=== PATIENT | male | born 1940 | race Caucasian/White ===

== ENCOUNTER 2017-12-14 14:15 | Inpatient (IN) ==
[2017-12-14 14:27] VITALS: BMI 27.9
[2017-12-14] MEDS ORDERED: DUONEB 0.5 MG/3 MG ONE (14:35)
[2017-12-14] MEDS ORDERED: DUONEB 0.5 MG/3 MG NEB ONE (14:35)
[2017-12-14 14:56] LABS: BASOPHILS # (AUTO) 0.1 X10^3/uL (0.0-0.1); BASOPHILS % (AUTO) 0.4 % (0.2-1.0); EOSINOPHILS % (AUTO) 0.1 % (0.9-2.9); HEMATOCRIT 36.6 % (42.0-54.0); HEMOGLOBIN 11.9 g/dL (13.5-18.0); LYMPHOCYTES # (AUTO) 1.2 X10^3/uL (1.3-2.9); LYMPHOCYTES % (AUTO) 7.4 % (21.0-51.0); MEAN CORPUSCULAR HEMOGLOBIN 28.3 pg (27.0-34.0); MEAN CORPUSCULAR HGB CONC 32.6 g/dL (33.0-35.0); MEAN CORPUSCULAR VOLUME 86.8 fL (80.0-100.0); MEAN PLATELET VOLUME 8.2 fL (7.4-11.0); MONOCYTES # (AUTO) 1.5 x10^3/uL (0.3-0.8); MONOCYTES % (AUTO) 8.9 % (0.0-13.0); NEUTROPHILS # (AUTO) 13.7 x10^3/uL (2.2-4.8); NEUTROPHILS % (AUTO) 83.2 % (42.0-75.0); PLATELET COUNT 216 X10^3/uL (150.0-450.0); RED BLOOD COUNT 4.22 X10^6/uL (4.7-6.0); RED CELL DISTRIBUTION WIDTH 16.6 % (11.6-16.5); WHITE BLOOD COUNT 16.5 X10^3/uL (3.6-10.0)
--- NOTE | 2017-12-14 14:58 | RAD ---
HISTORY: Shortness of breath and technique Study: Portable upright PA chest Comparison: None Findings: The trachea is midline. The cardiac silhouette is normal status post sternotomy for coronary artery bypass grafting surgery.. There is an infiltrate in the right lower lobe. There is mild interstitial lung disease.. The bony thorax is unremarkable. IMPRESSION: 1. Right lower lobe pneumonitis Reported By:
--- NOTE | 2017-12-14 15:05 | DR.SOBA ---
HPI Time Seen Time Seen by Provider: 12/14/17 14:47 Primary Care Physician Primary Care Physician: Haven ARANGO HPI Comment HPI Comment: SEEN IN CLINIC AND REFER TO ED BP IS LOW AND HR HIGH OXYGEN SAT WAS ALSO LOW. PATIENT SAID HE IS WEAK. Complaints Chief Complaint Doctors Comments: COUGH, COLD CONGESTION TIMES ONE WEEK. Chief Complaint:: PATIENT STATED HE WAS SENT FROM [facility] FOR LOW BP, ELEVATED HR AND LOW OXYGEN LEVEL WITH FEVER. PATIENT ADMITS TO C/C/C FOR 1 WEEK. Source History Provided: Patient Mode of Arrival Mode of Arrival: Wheelchair Timing Onset of Chief Complaint: 12/09/17 Context Onset:: At Rest and With Light Exertion PE Risk Factors:: None History of:: COPD and CHF Currently on:: Inhaled Bronchodilators Prehospital Care:: Inhaled B2 Modifying Factors Worsens:: Exertion and Lying Flat Improves:: Rest and Sitting Up Associated Signs and Symptoms Associated Signs and Symptoms: Cough, Nasal Congestion, Sore Throat, Chest Pain and Leg Swelling If Chest Pain Quality: Aching and Pleuritic Location: Chest Wall If Cough Cough: Productive and Yellow PMH PMH Past Medical History: Yes Past Medical History: CHF, COPD, Gout and Hypertension Past Surgical History: Yes Surgical History: Angioplasty/Stents Family History History of Family Medical Conditions: Yes Family Medical History: GA and Hypertension Social History Does patient currently use any type of tobacco product: No Have you used tobacco products in the last 12 months: No Type of Tobacco Use: None Does any household member use tobacco: No Alcohol Use: None Do you use any recreational Drugs:: No Lives With: Family Lives Where: Home infectious screening In the last 2 months have you had wt loss of >10#?: NO Have you had fever, night sweats or hemotysis?: No Have you traveled outside the country in the last 6 months?: No Isolation: Standard ROS Review of Systems Constitutional: Weakness and Fatigue Eyes: No Symptoms Reported ENTM: Nose Discharge, Nose Congestion and Throat Pain; negative Ear Pain Respiratoy: Productive Cough, Short of Breath and Wheezing Cardiovascular: Chest Pain (CHEST WALL PAIN.) Gastrointestinal/Abdominal: No Symptoms Reported Genitourinary: No Symptoms Reported Neurological: Headache Musculoskeletal: Muscle Pain and Chest wall Integumentary: No Symptoms Reported Hematologic/Lymphatic: No Symptoms Reported Endocrine: No Symptoms Reported Psychiatric: No Symptoms Reported All Other Systems: Reviewed and Negative PE Vital Signs Vitals: Temperature 97.7 F Pulse Rate [Apical] 98 Pulse Rate 81 Respiratory Rate 22 Blood Pressure [Right Arm] 166/75 Blood Pressure [Left Arm] 131/77 Blood Pressure 217/95 O2 Sat by Pulse Oximetry 97 General Limitations: No Limitations General Appearance: Alert and In Distress (ON EXERSION.) Head Head Exam: Normal Inspection Eyes Eye exam: Normal Appearance ENT ENT Exam: Normal External Ear Exam; negative Normal Oropharynx (THROAT RED, TONSIL NOT ENLARGE.) and TM's Normal Bilaterally (TM BULGING BILATERAL.) Neck Neck Exam: Normal Inspection Chest Chest Inspection: Normal Inspection and Symmetric Chest Wall Rise Respiratory Respiratory Exam: Normal Lung Sounds Bilat Respiratory Exam: Bilateral: Wheezing and Bilateral: Rhonchi and Lower: Wheezing and Lower: Rhonchi Cardiovascular Cardiovascular Exam: Regular Rate and Normal Rhythm Abdominal Exam Abdominal Exam: Normal Inspection, Normal Bowel Sounds and Soft; negative Tenderness Extremities Extremities Exam: Normal Inspection Back Back Exam: Normal Inspection Neurologic Neurological Exam: Alert and Oriented X3; negative Motor Sensory Deficit Psychiatric Psychiatric Exam: Normal Affect and Normal Mood Skin Skin Exam: Warm, Dry, Intact and Normal Color MDM Differential Diagnosis Differential Diagnosis: Bronchitis, CHF, COPD, Mycardial Infarction, Pneumonia, Pneumothorax, Pulmonary embolism, Respiratory Insufficiency, Sinusitis and URI COURSE Education/Counseling Education/Counseling: Patient and Education Educated On: Diagnosis ROR Labs Reviewed Laboratory Results Reviewed?: Yes Result Diagrams: 12/21/17 04:45 12/21/17 04:45 Laboratory: 12/14/17 16:29 Sputum - Expectorated Sputum Sputum Culture - Preliminary 12/14/17 16:29 Sputum - Expectorated Sputum - Final 12/14/17 15:43 Blood Blood Culture - Final 12/14/17 15:18 Blood Blood Culture - Final WBC 8.8 X10^3/uL (3.6-10.0) 12/21/17 04:45 RBC 3.66 X10^6/uL (4.7-6.0) L 12/21/17 04:45 Hgb 10.5 g/dL (13.5-18.0) L 12/21/17 04:45 Hct 31.9 % (42.0-54.0) L 12/21/17 04:45 MCV 87.1 fL (80.0-100.0) 12/21/17 04:45 MCH 28.6 pg (27.0-34.0) 12/21/17 04:45 MCHC 32.8 g/dL (33.0-35.0) L 12/21/17 04:45 RDW 15.6 % (11.6-16.5) 12/21/17 04:45 Plt Count 230 X10^3/uL (150.0-450.0) 12/21/17 04:45 MPV 7.5 fL (7.4-11.0) 12/21/17 04:45 Neut % (Auto) 70.3 % (42.0-75.0) 12/21/17 04:45 Lymph % (Auto) 15.5 % (21.0-51.0) L 12/21/17 04:45 Emanuel % (Auto) 10.1 % (0.0-13.0) 12/21/17 04:45 Eos % (Auto) 3.1 % (0.9-2.9) H 12/21/17 04:45 Baso % (Auto) 1.0 % (0.2-1.0) 12/21/17 04:45 Neut # (Auto) 6.2 x10^3/uL (2.2-4.8) H 12/21/17 04:45 Lymph # (Auto) 1.4 X10^3/uL (1.3-2.9) 12/21/17 04:45 Emanuel # (Auto) 0.9 x10^3/uL (0.3-0.8) H 12/21/17 04:45 Eos # (Auto) 0.3 x10^3/uL (0.0-0.2) H 12/21/17 04:45 Baso # (Auto) 0.1 X10^3/uL (0.0-0.1) 12/21/17 04:45 Absolute Nucleated RBC 0.0 /100WBC 12/21/17 04:45 Sample Site Rrad 12/19/17 05:44 ABG pH 7.350 (7.35-7.45) 12/19/17 05:44 ABG pCO2 70.0 mmHg (35.0-45.0) H* 12/19/17 05:44 ABG pO2 96.0 mmHg (80.0-100.0) 12/19/17 05:44 ABG HCO3 38.6 mmol/L (22-26) H* 12/19/17 05:44 ABG O2 Saturation 97.0 % (90-100) 12/19/17 05:44 ABG Base Excess 10.4 mmol/L (-2.0-2.0) H 12/19/17 05:44 Kumar Test Pos 12/19/17 05:44 A-a Gradient 66.0 mmHg 12/19/17 05:44 FiO2 35 12/19/17 05:44 Blood Gas Comments Elizabeth abg well-mtf 12/19/17 05:44 Sodium 142 mmol/L (136-145) 12/21/17 04:45 Corrected Sodium TNP 12/21/17 04:45 Potassium 4.4 mmol/L (3.5-5.1) 12/21/17 04:45 Chloride 102 mmol/L (98-107) 12/21/17 04:45 Carbon Dioxide 39.2 mmol/L (21-32) H 12/21/17 04:45 BUN 17 mg/dL (7-18) 12/21/17 04:45 Creatinine 0.90 mg/dL (0.70-1.30) 12/21/17 04:45 Est GFR (MDRD) Af Amer > 60 (>60) 12/21/17 04:45 Est GFR (MDRD) Non-Af > 60 (>60) 12/21/17 04:45 Glucose 93 mg/dL (65-99) 12/21/17 04:45 Lactic Acid 1.2 mmol/L (0.4-2.0) 12/14/17 15:18 Calcium 8.4 mg/dL (8.5-10.1) L 12/21/17 04:45 Corrected Calcium 9.7 mg/dL (8.5-10.1) 12/21/17 04:45 Total Bilirubin 0.20 mg/dL (0.2-1.0) 12/21/17 04:45 AST 27 Units/L (15-37) 12/21/17 04:45 ALT 26 Units/L (12-78) 12/21/17 04:45 Alkaline Phosphatase 55 Units/L (46-116) 12/21/17 04:45 Creatine Kinase 64 Units/L (39-308) 12/19/17 17:19 CK-MB (CK-2) 2.5 ng/mL (0-4.0) 12/19/17 17:19 CK/CKMB % Calc 3.9 % (<4) 12/19/17 17:19 Troponin I < 0.02 ng/mL (0-1.5) 12/19/17 17:19 B-Natriuretic Peptide 326 pg/mL (0-79) H 12/14/17 15:18 Total Protein 6.9 g/dL (6.4-8.2) 12/21/17 04:45 Albumin 2.4 g/dL (3.4-5.0) L 12/21/17 04:45 Globulin 4.5 g/dL (2.5-4.5) 12/21/17 04:45 Albumin/Globulin Ratio 0.5 Ratio (1.1-2.1) L 12/21/17 04:45 Specimen Type Clean catch urine 12/14/17 18:36 Urine Color Dark yellow (YELLOW) 12/14/17 18:36 Urine Appearance Clear (CLEAR) 12/14/17 18:36 Urine pH 5.0 (5.0 - 8.0) 12/14/17 18:36 Ur Specific [place] 1.015 (1.000-1.030) 12/14/17 18:36 Urine Protein 2+ (NEGATIVE) 12/14/17 18:36 Urine Glucose (UA) Negative (NEGATIVE) 12/14/17 18:36 Urine Ketones Negative (NEGATIVE) 12/14/17 18:36 Urine Occult Blood Negative (NEGATIVE) 12/14/17 18:36 Urine Nitrite Negative (NEGATIVE) 12/14/17 18:36 Urine Bilirubin Negative (NEGATIVE) 12/14/17 18:36 Urine Urobilinogen Normal (NORMAL) 12/14/17 18:36 Ur Leukocyte Esterase Negative (NEGATIVE) 12/14/17 18:36 Urine RBC None seen /HPF (NONE SEEN) 12/14/17 18:36 Urine WBC 0-2 /HPF (NONE SEEN) 12/14/17 18:36 Ur Squamous Epith Cells Rare /HPF (NEGATIVE) 12/14/17 18:36 Ur Renal Epithelial Cell Rare /HPF (NEGATIVE) 12/14/17 18:36 Amorphous Sediment 1+ /HPF (NEGATIVE) 12/14/17 18:36 Urine Bacteria Trace /HPF (NEGATIVE) 12/14/17 18:36 Hyaline Casts Rare /LPF (NEGATIVE) 12/14/17 18:36 Ur Culture Indicated? No/not indicated 12/14/17 18:36 XRAY XRAY Interpreted by: Radiologist XRAY Findings: REPORT DISCUSS WITH PATIENT. EKG [place]: Normal Rhythm: NSR Block: None Hypertrophy: None ST: Normal Instructions Instructions: Chronic Obstructive Pulmonary Disease Exacerbation, Shnn-df-[id number] Fall Prevention in the Home, Wbqx-oz-[id number] Hypertension, Lvkw-go-Levd Acute Respiratory Failure, Adult Community-Acquired Pneumonia, Adult, [id number] Forms: Patient Portal
[2017-12-14 15:12] LABS: CALCIUM 8.5 mg/dL (8.5-10.1); CARBON DIOXIDE 32.1 mmol/L (21-32); COR CA(FOR HYPOALB) 9.3 mg/dL (8.5-10.1); CREATININE 1.55 mg/dL (0.70-1.30); TOTAL PROTEIN 7.9 g/dL (6.4-8.2)
[2017-12-14 15:35] LABS: CKMB % 2.2 % (<4); CREATINE KINASE 95 Units/L (39-308); CREATINE KINASE MB 2.1 ng/mL (0-4.0); TROPONIN I < 0.02 ng/mL (0-1.5)
[2017-12-14 15:41] LABS: B-TYPE NATRIURETIC PEPTIDE 326 pg/mL (0-79)
[2017-12-14 15:47] LABS: LACTIC ACID 1.2 mmol/L (0.4-2.0)
[2017-12-14] MEDS ORDERED: ROCEPHIN VIAL 1 GRAM IVP ONE (16:13)
[2017-12-14] MEDS ORDERED: ROCEPHIN VIAL 1 GRAM ONE (16:14)
[2017-12-14 16:35] LABS: ABG ALLEN TEST POS; ABG BASE EXCESS 4.5 mmol/L (-2.0-2.0); ABG HCO3 31.5 mmol/L (22-26); FRACTIONATED INSPIRED OXYGEN 28
[2017-12-14] MEDS ORDERED: LEVAQUIN PREMIX IV 750 MG 750 MG/150 ML BAG IV SCH (18:12)
[2017-12-14] MEDS ORDERED: DUONEB 0.5 MG/3 MG NEB SCH (18:12)
[2017-12-14] MEDS ORDERED: NS 1/2 1000 ML IV 1,000 ML IV ONE (18:42)
[2017-12-14] MEDS: ROBITUSSIN DM PO SCH ×2 (18:53→21:00)
[2017-12-14] MEDS: NS 1/2 1000 ML IV 1,000 ML IV SCH (18:53)
[2017-12-14 19:01] LABS: BILIRUBIN,URINE NEGATIVE (NEGATIVE); BLOOD/HEMOGLOBIN,URINE NEGATIVE (NEGATIVE); GLUCOSE, URINE NEGATIVE (NEGATIVE); KETONES,URINE NEGATIVE (NEGATIVE); LEUKOCYTE ESTERASE ,URINE NEGATIVE (NEGATIVE); NITRITES,URINE NEGATIVE (NEGATIVE); PROTEIN,URINE 2+ (NEGATIVE); UROBILINOGEN,URINE NORMAL (NORMAL)
[2017-12-14 19:19] LABS: AMORPHOUS SEDIMENT,UR 1+ /HPF (NEGATIVE); APPEARANCE,URINE CLEAR (CLEAR); BACTERIA,URINE TRACE /HPF (NEGATIVE); COLOR,URINE DARK YELLOW (YELLOW); HYALINE CASTS, URINE RARE /LPF (NEGATIVE); RBC,URINE NONE SEEN /HPF (NONE SEEN); RENAL EPITHELIAL CELLS,URINE RARE /HPF (NEGATIVE); SQUAMOUS EPITHELIAL CELL,UR RARE /HPF (NEGATIVE)
[2017-12-14] MEDS ORDERED: TYLENOL 325 MG TAB PO PRN (20:28)
[2017-12-14] MEDS: TUSSIONEX PENNKINETIC SUSP PO PRN ×2 (20:49→20:55)
[2017-12-14] MEDS: LOPRESSOR TAB 25 MG PO SCH (20:50)
[2017-12-14] MEDS: XOPENEX 1.25 MG/3 ML NEBULE NEB SCH (21:00)
[2017-12-15] MEDS: TobraDEX OPHTH OPHTH 1 DOSE LEFTEYE SCH ×3 (02:35→22:10)
[2017-12-15 04:32] LABS: ABG ALLEN TEST POS; FRACTIONATED INSPIRED OXYGEN 28
[2017-12-15 05:10] LABS: BASOPHILS % (AUTO) 0.3 % (0.2-1.0); HEMATOCRIT 35.6 % (42.0-54.0); HEMOGLOBIN 11.6 g/dL (13.5-18.0); LYMPHOCYTES # (AUTO) 1.6 X10^3/uL (1.3-2.9); LYMPHOCYTES % (AUTO) 10.7 % (21.0-51.0); MEAN CORPUSCULAR HEMOGLOBIN 28.6 pg (27.0-34.0); MEAN CORPUSCULAR HGB CONC 32.6 g/dL (33.0-35.0); MEAN CORPUSCULAR VOLUME 87.6 fL (80.0-100.0); MEAN PLATELET VOLUME 8.8 fL (7.4-11.0); MONOCYTES # (AUTO) 1.4 x10^3/uL (0.3-0.8); MONOCYTES % (AUTO) 9.3 % (0.0-13.0); NEUTROPHILS # (AUTO) 12.2 x10^3/uL (2.2-4.8); NEUTROPHILS % (AUTO) 79.7 % (42.0-75.0); PLATELET COUNT 197 X10^3/uL (150.0-450.0); RED BLOOD COUNT 4.07 X10^6/uL (4.7-6.0); RED CELL DISTRIBUTION WIDTH 16.2 % (11.6-16.5); WHITE BLOOD COUNT 15.3 X10^3/uL (3.6-10.0)
[2017-12-15 05:25] LABS: ALANINE AMINOTRANSFERASE 15 Units/L (12-78); ALBUMIN 2.8 g/dL (3.4-5.0); ALKALINE PHOSPHATASE 58 Units/L (46-116); ASPARTATE AMINO TRANSFERASE 16 Units/L (15-37); BLOOD UREA NITROGEN 32 mg/dL (7-18); CALCIUM 8.5 mg/dL (8.5-10.1); CARBON DIOXIDE 32.2 mmol/L (21-32); CHLORIDE 103 mmol/L (98-107); COR CA(FOR HYPOALB) 9.5 mg/dL (8.5-10.1); SODIUM 141 mmol/L (136-145); TOTAL PROTEIN 7.6 g/dL (6.4-8.2); eGFR NON BLACK RACES 39 (>60)
--- NOTE | 2017-12-15 07:39 | RAD ---
HISTORY: Shortness of breath, tachycardia Study: Chest AP portable Comparison: 12/14/2017 Findings: The patient is status post median sternotomy. The heart is within normal limits in size. The lungs ar e well inflated. Improving right basilar pneumonia is identified. The remainder of the lung hale ar e clear. The bony thorax is unremarkable. IMPRESSION: Improving right basilar pneumonia Reported By:
[2017-12-15] MEDS: XOPENEX 1.25 MG/3 ML NEBULE NEB SCH ×4 (08:36→20:39)
[2017-12-15] MEDS ORDERED: NS 50 ML IV 50 ML IV ONE (08:37)
[2017-12-15] MEDS: ROBITUSSIN DM PO SCH ×4 (08:47→20:33)
[2017-12-15] MEDS: LOPRESSOR TAB 25 MG PO SCH ×2 (08:47→20:33)
[2017-12-15] MEDS: ROCEPHIN VIAL 1 GRAM IVP SCH (09:00)
[2017-12-15] MEDS ORDERED: PATIENT'S HOME MEDICATION (Albuterol Sulfate 2 PUFF) IN PRN (10:53)
[2017-12-15] MEDS ORDERED: NS 1/2 1000 ML IV 1,000 ML IV ONE (10:54)
[2017-12-15] MEDS: NS 1/2 1000 ML IV 1,000 ML IV SCH (10:59)
[2017-12-15] MEDS ORDERED: FLUTICASONE UMECLIDIN VILANTER IN SCH (11:00)
[2017-12-15] MEDS ORDERED: MULTIVIT MIN FA LYCOPEN LUTEIN PO SCH (11:00)
[2017-12-15] MEDS ORDERED: TobraDEX OPHTH SUSP ONE (11:11)
[2017-12-15] MEDS: COZAAR PO SCH (11:32)
[2017-12-15] MEDS: ASPIRIN 81 MG CHEWTAB PO SCH (11:32)
[2017-12-15] MEDS: TAB-A-VITE PO SCH (11:32)
[2017-12-15] MEDS: ZYLOPRIM PO SCH (11:32)
[2017-12-15] MEDS: Atrovent NEB TX 0.02% NEB SCH ×3 (13:00→20:39)
--- NOTE | 2017-12-15 14:25 | DR.H&P ---
H&P - History & Physical for Day of: H&P Date: 12/14/17 - Chief Complaint Chief Complaint: C/C/C, FEVER, LOW BLOOD PRESSURE, ELEVATED HEART RATE, LOW OXYGEN SATURATIONS - History of Present Illness History of Present Illness: IS A 77 YEAR OLD PATIENT OF [facility] ARANGO WHO PRESENTED TO THE EMERGENCY ROOM WITH COMPLAINTS OF LOW BLOOD PRESSURE, ELEVATED HEART RATE, AND LOW OXYGEN SATURATIONS. PATIENT REPORTS THAT HE HAS HAD COUGH, COLD, CONGESTION, AND FEVER FOR THE PAST WEEK. ON ARRIVAL, VITALS WERE 98.7-103-18-92%RA-115/54. LABS WERE OBTAINED. ABNORMAL LAB VALUES INCLUDE THE FOLLOWING: WBC 16.5, RBC 4.22, HGB 11.9, HCT 36.6, CARBON DIOXIDE 32.1, BUN 30, CREATININE 1.55, GLUCOSE 135, ALBUMIM 3.0, GLOBULIN 4.9. ABG REVEALED: PH 7.350, PC02 57.0, P02 63.0, HC03 31.5, 02 SATURATION 91.0, BASE EXCESS 4.5. CARDIAC ENZYMES WITHIN NORMAL LIMITS. EKG REVEALED SINUS RHYTHM. BLOOD AND SPUTUM CULTURES ARE PENDING. A CHEST XRAY WAS OBTAINED AND REVEALED: Right lower lobe pneumonitis. STAFF REPORTS THAT PATIENTS OXYGEN SATURATIONS FELL INTO THE 60S WHILE AMBULATING ON NC 3L/MIN. OXYGEN SATURATIONS INCREASED TO THE LOW 90S AFTER DEEP BREATHING. HE WAS GIVEN LEVAQUIN 750MG IV X 1 DOSE AND ROCEPHIN 1G IV X 1 DOSE IN THE ER. HE WAS ADMITTED TO THE INTENSIVE CARE UNIT FOR FURTHER EVALUATION AND TREATMENT OF PNEUMONIA AND RESPIRATORY DISTRESS. WE PLAN TO FOLLOW UP WITH AM LABS AND CONTINUE TO MONITOR PATIENT. - Past Medical History Past Medical History: Hypertension, COPD, Gout, CHF - Past Surgical History Surgical History: Tonsillectomy - Family History Family Medical History: Diabetes Mellitus, [place], Hypertension - Social History Does patient currently use any type of tobacco product: No Have you used tobacco products in the last 12 months: No Type of Tobacco Use: None How many years tobacco product used: 55 Does any household member use tobacco: No Alcohol Use: None Drug Use: None - Medications Home Medications: No Known Drug Allergies Allergy (Verified 12/14/17 14:27) CONTINUE taking the following medications albuterol sulfate [Ventolin HFA] 2 puff INHALATION Q4H PRN 12/14/17 [History] allopurinol 1 tab PO DAILY 12/14/17 [History] aspirin [Judy Chewable Aspirin] 1 tab PO DAILY 12/14/17 [History] lvicaykqllk-ipnnbcjyr-ltljyyzs [Trelegy Ellipta] 1 puff INHALATION DAILY [History] furosemide 1 tab PO DAILY 12/14/17 [History] levalbuterol HCl 1 inh INHALATION Q4H PRN 12/14/17 [History] losartan 50 mg DAILY 12/14/17 [History] metoprolol tartrate 1 tab PO BID 12/14/17 [History] hugagode-ryx-YS-lycopen-lutein [Centrum Silver Men] 1 tab PO DAILY 12/14/17 [ History] - Review of Systems Constitutional: Fever, Weakness Eyes: No Symptoms Reported ENT: No Symptoms Reported Respiratory: See HPI, Cough, Shortness of Breath, SOB with Excertion, Wheezing Cardiovascular: No Symptoms Reported, Edema (bilateral lower extremities ) Gastrointestinal: No Symptoms Reported Genitourinary: No Symptoms Reported Musculoskeletal: No Symptoms Reported Neurological: Weakness - Physical Exam Vital Signs: Temperature 97.5 F Pulse Rate [Apical] 94 Pulse Rate 90 Respiratory Rate 24 Blood Pressure [Right Arm] 142/65 Blood Pressure [Left Arm] 123/69 Blood Pressure 115/54 O2 Sat by Pulse Oximetry 100 Oriented: Normal Eyes: Normal Ear: Normal Nose: Normal Respiratory: Wheezes Throughout Cardiovascular: Tachycardia, Edema (bilateral lower extremities ). negative: S3 , S4, Murmur : Normal Auscultation: Bowel Sounds: Normal Palpation: Normal Skin: Normal Musculoskeletal: Normal Psychiatric: Normal Mood Description: Calm Affect: Normal Speech Pattern: Clear - Assessment/Plan (1) Pneumonia Qualifiers: Pneumonia type: due to unspecified organism Laterality: right Lung location: lower lobe of lung Qualified Code(s): J18.1 - Lobar pneumonia, unspecified organism Status: Acute Plan: pneumonia protocol, iv cipro, respiratory treatments, supplemental oxygen , continue to monitor (2) Respiratory distress Status: Acute Plan: respiratory treatments, supplemental oxygen, continue to monitor - Allergies Allergies/Adverse Reactions: Allergies Allergy/AdvReac Type Severity Reaction Status Date / Time No Known Drug Allergies Allergy Verified 12/14/17 14:27
[2017-12-15] MEDS: PULMICORT NEB TX 0.5 MG NEB SCH ×2 (16:20→20:39)
[2017-12-16] MEDS: NS 1/2 1000 ML IV 1,000 ML IV SCH ×3 (01:25→16:02)
[2017-12-16 05:59] LABS: BASOPHILS % (AUTO) 0.4 % (0.2-1.0); EOSINOPHILS # (AUTO) 0.1 x10^3/uL (0.0-0.2); EOSINOPHILS % (AUTO) 0.8 % (0.9-2.9); HEMATOCRIT 34.2 % (42.0-54.0); HEMOGLOBIN 11.2 g/dL (13.5-18.0); LYMPHOCYTES # (AUTO) 1.1 X10^3/uL (1.3-2.9); LYMPHOCYTES % (AUTO) 9.6 % (21.0-51.0); MEAN CORPUSCULAR HEMOGLOBIN 28.6 pg (27.0-34.0); MEAN CORPUSCULAR HGB CONC 32.8 g/dL (33.0-35.0); MEAN CORPUSCULAR VOLUME 87.1 fL (80.0-100.0); MEAN PLATELET VOLUME 8.6 fL (7.4-11.0); MONOCYTES % (AUTO) 8.9 % (0.0-13.0); NEUTROPHILS # (AUTO) 8.9 x10^3/uL (2.2-4.8); NEUTROPHILS % (AUTO) 80.3 % (42.0-75.0); PLATELET COUNT 217 X10^3/uL (150.0-450.0); RED BLOOD COUNT 3.92 X10^6/uL (4.7-6.0); RED CELL DISTRIBUTION WIDTH 16.3 % (11.6-16.5); WHITE BLOOD COUNT 11.1 X10^3/uL (3.6-10.0)
[2017-12-16 06:11] LABS: ALANINE AMINOTRANSFERASE 14 Units/L (12-78); ALBUMIN 2.8 g/dL (3.4-5.0); ALKALINE PHOSPHATASE 58 Units/L (46-116); ASPARTATE AMINO TRANSFERASE 18 Units/L (15-37); BLOOD UREA NITROGEN 24 mg/dL (7-18); CALCIUM 8.3 mg/dL (8.5-10.1); CARBON DIOXIDE 31.1 mmol/L (21-32); CHLORIDE 103 mmol/L (98-107); COR CA(FOR HYPOALB) 9.3 mg/dL (8.5-10.1); CREATININE 1.18 mg/dL (0.70-1.30); SODIUM 140 mmol/L (136-145); TOTAL PROTEIN 7.8 g/dL (6.4-8.2); eGFR NON BLACK RACES > 60 (>60)
--- NOTE | 2017-12-16 06:47 | RAD ---
Examination: AP chest History: SOB Comparison 12/15/2017 Findings: Continued normal heart size. The left lung is clear. There is suggestion of a small area o f residual infiltrate at the right base as previously described. No new abnormality is noted. Impression: No change since 1 day earlier. Reported By:
[2017-12-16] MEDS: LEVAQUIN PREMIX IV 750 MG 750 MG/150 ML BAG IV SCH (09:00)
[2017-12-16] MEDS: LOPRESSOR TAB 25 MG PO SCH ×2 (09:01→20:38)
[2017-12-16] MEDS: ROBITUSSIN DM PO SCH ×4 (09:01→20:38)
[2017-12-16] MEDS: COZAAR PO SCH (09:01)
[2017-12-16] MEDS: ZYLOPRIM PO SCH (09:01)
[2017-12-16] MEDS: TAB-A-VITE PO SCH (09:01)
[2017-12-16] MEDS: ROCEPHIN VIAL 1 GRAM IVP SCH (09:01)
[2017-12-16] MEDS: ASPIRIN 81 MG CHEWTAB PO SCH (09:01)
[2017-12-16] MEDS: TobraDEX OPHTH OPHTH 1 DOSE LEFTEYE SCH ×4 (09:02→20:39)
[2017-12-16] MEDS: XOPENEX 1.25 MG/3 ML NEBULE NEB SCH ×4 (09:08→20:14)
[2017-12-16] MEDS: Atrovent NEB TX 0.02% NEB SCH ×4 (09:08→20:14)
[2017-12-16] MEDS: PULMICORT NEB TX 0.5 MG NEB SCH ×2 (09:08→20:14)
[2017-12-16] MEDS ORDERED: NS 1/2 1000 ML IV 1,000 ML IV ONE (15:01)
[2017-12-17] MEDS ORDERED: NS 1/2 1000 ML IV 1,000 ML IV ONE ×2 (04:34→17:17)
[2017-12-17] MEDS: NS 1/2 1000 ML IV 1,000 ML IV SCH ×2 (04:36→17:40)
[2017-12-17 06:27] LABS: BASOPHILS # (AUTO) 0.1 X10^3/uL (0.0-0.1); BASOPHILS % (AUTO) 0.7 % (0.2-1.0); EOSINOPHILS # (AUTO) 0.2 x10^3/uL (0.0-0.2); EOSINOPHILS % (AUTO) 1.8 % (0.9-2.9); HEMATOCRIT 36.4 % (42.0-54.0); HEMOGLOBIN 11.7 g/dL (13.5-18.0); LYMPHOCYTES # (AUTO) 1.5 X10^3/uL (1.3-2.9); LYMPHOCYTES % (AUTO) 12.1 % (21.0-51.0); MEAN CORPUSCULAR HEMOGLOBIN 28.2 pg (27.0-34.0); MEAN CORPUSCULAR HGB CONC 32.1 g/dL (33.0-35.0); MEAN CORPUSCULAR VOLUME 87.9 fL (80.0-100.0); MEAN PLATELET VOLUME 8.7 fL (7.4-11.0); MONOCYTES # (AUTO) 1.1 x10^3/uL (0.3-0.8); MONOCYTES % (AUTO) 9.1 % (0.0-13.0); NEUTROPHILS # (AUTO) 9.5 x10^3/uL (2.2-4.8); NEUTROPHILS % (AUTO) 76.3 % (42.0-75.0); PLATELET COUNT 252 X10^3/uL (150.0-450.0); RED BLOOD COUNT 4.15 X10^6/uL (4.7-6.0); RED CELL DISTRIBUTION WIDTH 16.2 % (11.6-16.5); WHITE BLOOD COUNT 12.4 X10^3/uL (3.6-10.0)
[2017-12-17 06:30] LABS: ALANINE AMINOTRANSFERASE 16 Units/L (12-78); ALBUMIN 2.8 g/dL (3.4-5.0); ALKALINE PHOSPHATASE 61 Units/L (46-116); ASPARTATE AMINO TRANSFERASE 18 Units/L (15-37); BLOOD UREA NITROGEN 18 mg/dL (7-18); CALCIUM 8.7 mg/dL (8.5-10.1); CARBON DIOXIDE 30.6 mmol/L (21-32); CHLORIDE 102 mmol/L (98-107); COR CA(FOR HYPOALB) 9.7 mg/dL (8.5-10.1); COR NA(FOR HYPERGLY) 139 mmol/L (136-145); CREATININE 1.11 mg/dL (0.70-1.30); SODIUM 139 mmol/L (136-145); TOTAL PROTEIN 8.1 g/dL (6.4-8.2); eGFR NON BLACK RACES > 60 (>60)
--- NOTE | 2017-12-17 06:54 | RAD ---
Examination: AP chest History: Cough SOB Comparison 12/16/2017 Findings: Continued normal heart size with clear left chest. Apparent increase in infiltrate in the right base. The right upper lung is clear. No pleural fluid or pneumothorax is seen. Impression: Suspect increase/recurrent right lower lobe infiltrate since 12/16/2017. Reported By:
[2017-12-17] MEDS: ROBITUSSIN DM PO SCH ×4 (08:56→21:32)
[2017-12-17] MEDS: ROCEPHIN VIAL 1 GRAM IVP SCH (08:57)
[2017-12-17] MEDS: ZYLOPRIM PO SCH (08:57)
[2017-12-17] MEDS: TAB-A-VITE PO SCH (08:57)
[2017-12-17] MEDS: ASPIRIN 81 MG CHEWTAB PO SCH (08:57)
[2017-12-17] MEDS: COZAAR PO SCH (08:58)
[2017-12-17] MEDS: LOPRESSOR TAB 25 MG PO SCH ×2 (08:58→21:32)
[2017-12-17] MEDS: TobraDEX OPHTH OPHTH 1 DOSE LEFTEYE SCH (08:58)
[2017-12-17] MEDS: XOPENEX 1.25 MG/3 ML NEBULE NEB SCH ×4 (09:12→21:29)
[2017-12-17] MEDS: PULMICORT NEB TX 0.5 MG NEB SCH ×2 (09:12→21:29)
[2017-12-17] MEDS: Atrovent NEB TX 0.02% NEB SCH ×4 (09:12→21:29)
[2017-12-17] MEDS: MILK OF MAGNESIA PO SCH (21:32)
[2017-12-17] MEDS: COLACE CAP 100 MG PO SCH (21:34)
[2017-12-18 05:35] LABS: BASOPHILS # (AUTO) 0.1 X10^3/uL (0.0-0.1); BASOPHILS % (AUTO) 0.5 % (0.2-1.0); EOSINOPHILS # (AUTO) 0.2 x10^3/uL (0.0-0.2); EOSINOPHILS % (AUTO) 1.4 % (0.9-2.9); HEMATOCRIT 35.8 % (42.0-54.0); HEMOGLOBIN 11.6 g/dL (13.5-18.0); LYMPHOCYTES # (AUTO) 0.8 X10^3/uL (1.3-2.9); LYMPHOCYTES % (AUTO) 7.4 % (21.0-51.0); MEAN CORPUSCULAR HEMOGLOBIN 28.3 pg (27.0-34.0); MEAN CORPUSCULAR HGB CONC 32.4 g/dL (33.0-35.0); MEAN CORPUSCULAR VOLUME 87.4 fL (80.0-100.0); MEAN PLATELET VOLUME 8.4 fL (7.4-11.0); MONOCYTES % (AUTO) 8.7 % (0.0-13.0); PLATELET COUNT 220 X10^3/uL (150.0-450.0); RED BLOOD COUNT 4.09 X10^6/uL (4.7-6.0); RED CELL DISTRIBUTION WIDTH 16.2 % (11.6-16.5); WHITE BLOOD COUNT 10.9 X10^3/uL (3.6-10.0)
[2017-12-18 05:46] LABS: ALANINE AMINOTRANSFERASE 26 Units/L (12-78); ALBUMIN 2.8 g/dL (3.4-5.0); ALKALINE PHOSPHATASE 69 Units/L (46-116); ASPARTATE AMINO TRANSFERASE 34 Units/L (15-37); BLOOD UREA NITROGEN 19 mg/dL (7-18); CALCIUM 8.7 mg/dL (8.5-10.1); CARBON DIOXIDE 32.8 mmol/L (21-32); CHLORIDE 103 mmol/L (98-107); COR CA(FOR HYPOALB) 9.7 mg/dL (8.5-10.1); COR NA(FOR HYPERGLY) 139 mmol/L (136-145); CREATININE 0.99 mg/dL (0.70-1.30); SODIUM 139 mmol/L (136-145); TOTAL PROTEIN 8.1 g/dL (6.4-8.2); eGFR NON BLACK RACES > 60 (>60)
[2017-12-18] MEDS ORDERED: BUTT CREAM (COMPOUND) ONE (07:21)
--- NOTE | 2017-12-18 07:21 | RAD ---
HISTORY: Follow-up pneumonia Study: Chest AP portable Comparison: 12/17/2017, 12/16/2017 Findings: The patient is status post median sternotomy. The heart is within normal limits in size. The lungs ar e mildly hyperinflated. Interstitial lung changes are present bilaterally. No significant change is n oted in the right lower lobe alveolar pneumonia being followed. A small right pleural effusion is lik msaon present. No left pleural effusion is identified. The bony thorax is unremarkable. IMPRESSION: No change right lower lobe alveolar pneumonia Small right pleural effusion Reported By:
[2017-12-18] MEDS: MILK OF MAGNESIA PO SCH ×2 (08:20→23:48)
[2017-12-18] MEDS: LEVAQUIN PREMIX IV 750 MG 750 MG/150 ML BAG IV SCH (08:20)
[2017-12-18] MEDS: ASPIRIN 81 MG CHEWTAB PO SCH (08:21)
[2017-12-18] MEDS: COZAAR PO SCH ×2 (08:21→10:12)
[2017-12-18] MEDS: ZYLOPRIM PO SCH (08:21)
[2017-12-18] MEDS: ROBITUSSIN DM PO SCH ×3 (08:21→21:30)
[2017-12-18] MEDS: TAB-A-VITE PO SCH (08:21)
[2017-12-18] MEDS: LOPRESSOR TAB 25 MG PO SCH ×2 (08:22→21:30)
[2017-12-18] MEDS: TobraDEX OPHTH OPHTH 1 DOSE LEFTEYE SCH ×2 (08:24→21:30)
[2017-12-18] MEDS: ROCEPHIN VIAL 1 GRAM IVP SCH (08:24)
[2017-12-18 08:44] LABS: ABG ALLEN TEST POS; ABG BASE EXCESS 6.6 mmol/L (-2.0-2.0); ABG HCO3 37.6 mmol/L (22-26); FRACTIONATED INSPIRED OXYGEN 32
[2017-12-18] MEDS: PULMICORT NEB TX 0.5 MG NEB SCH ×2 (08:59→21:41)
[2017-12-18] MEDS: XOPENEX 1.25 MG/3 ML NEBULE NEB SCH ×4 (08:59→21:41)
[2017-12-18] MEDS: Atrovent NEB TX 0.02% NEB SCH ×4 (09:00→21:40)
[2017-12-18] MEDS ORDERED: LOPRESSOR TAB 25 MG PO SCH (09:00)
[2017-12-18] MEDS ORDERED: NS 1/2 1000 ML IV 1,000 ML IV ONE (10:09)
[2017-12-18 11:56] LABS: ABG BASE EXCESS 9.4 mmol/L (-2.0-2.0)
[2017-12-18 11:57] LABS: ABG ALLEN TEST POS; FRACTIONATED INSPIRED OXYGEN 35
--- NOTE | 2017-12-18 18:17 | CT ---
Indication: Acute mental status changes Exam: CT head without contrast. Technique: Routine transaxial images were obtained through the brain without contrast. Comparison: None. Findings: The ventricles are mildly enlarged with diffuse mild prominence of the cortical sulci. Ther e is mild periventricular low density bilaterally. There is mild focal low-density and atrophy along the right frontal lobe extending laterally . There is a craniotomy flap along the right frontoparieta l region extending inferiorly along the temporal region which is in good position. No intracranial he morrhage or edema is seen. There is no extra-axial fluid collection or mass . There is minimal cortic al atrophy along the right parietal region . The midline structures are unremarkable. The bones are i ntact. 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 Mild atrophy mild chronic microischemic changes throughout the deep white matter. Reported By:
[2017-12-18] MEDS: NS 1/2 1000 ML IV 1,000 ML IV SCH (20:15)
--- NOTE | 2017-12-18 20:35 | PCM.PROG ---
Progress Note - Progress Note for Day of Date of Exam: 12/18/17 - Subjective Subjective: WAS ADMITTED FOR RIGHT LOWER LOBE PNEUMONIA AND RESPIRATORY DISTRESS. HE ALSO HAS A HISTORY OF COPD AND CHF. HE WAS TRANSFERRED FROM THE INTENSIVE CARE UNIT TO THE FLOOR YESTERDAY. HE CONTINUES WITH COUGH AND SHORTNESS OF BREATH TODAY. HE IS ALSO NOTED WITH ALTERED MENTAL STATUS AND WEAKNESS. STAFF REPORTS THAT PATIENTS OXYGEN SATURATIONS HAVE BEEN FALLING INTO THE 70S ON AMBULATION. HE HAS BEEN HYPERTENSIVE DESPITE CHANGES MADE TO MEDICATIONS. HIS VITALS THIS MORNING ARE 98.6-121-22-95%-220/115. ABNORMAL LABS INCLUDE THE FOLLOWING: WBC 10.9, RBC 4.09, HGB 11.6, HCT 35.8, CARBON DIOXIDE 32.8, BUN 19, GLUCOSE 118, ALBUMIN 2.8. ABG REVEALED: PH 7.210, PC02 94.0, P02 71.0, HC03 37.6, 02 SATURATION 90.0, BASE EXCESS 6.6. CHEST XRAY REVEALED: No change right lower lobe alveolar pneumonia. Small right pleural effusion. HE CONTINUES TO RECEIVE IV ANTIBIOTICS, RESPIRATORY TREATMENTS, AND SUPPLEMENTAL OXYGEN. TODAY, WE WILL PLACE HIM ON THE BIPAP AND OBTAIN A BRAIN CT DUE TO THE ALTERED MENTAL STATUS AND AN ECHO. WE WILL INCREASE THE LOSARTAN TO 100MG PO DAILY. OTHERWISE, WE WILL FOLLOW UP WITH AM LABS, CHEST XRAY, AND ABG AND CONTINUE TO MONITOR PATIENT. - Past Medical Family Social History Past Med/Fam/Surg Hx: No changes since H&P Allergies: Allergies No Known Drug Allergies Allergy (Verified 12/14/17 14:27) - Review of Systems ROS: No change since H&P - Vital Signs and I&O's Vital Signs: Temperature 97.9 F Pulse Rate [Apical] 91 Pulse Rate 92 Respiratory Rate 20 Blood Pressure [Right Arm] 220/115 Blood Pressure [Left Arm] 150/68 Blood Pressure 217/95 O2 Sat by Pulse Oximetry 93 Intake and Output: Intake & Output 12/16/17 12/17/17 12/18/17 12/19/17 11:59 11:59 11:59 11:59 Intake Total 2990 / 2990 2547 / 2547 2564 / 2564 360 / 360 Output Total 1800 / 1800 2100 / 2100 1952 / 1952 425 / 425 Balance 1190 / 1190 447 / 447 612 / 612 -65 / -65 - Physical Exam Oriented: Person Eyes: Normal Ear: Normal Nose: Normal Throat: Normal Respiratory: Generalized, Diminished, Wheezes Cardiovascular: Tachycardia, Edema (bilateral lower extremities ). negative: S3, S4, Murmur : Normal Auscultation: Bowel Sounds: Normal Palpation: Normal Tenderness: Normal Skin: Normal Musculoskeletal: Normal Psychiatric: Other (CONFUSION ) Mood Description: Calm Affect: Normal Speech Pattern: Clear - Laboratory and Diagnostics Result Diagrams: 12/18/17 04:59 12/18/17 04:59 Labs: 12/14/17 16:29 Sputum - Expectorated Sputum Sputum Culture - Preliminary 12/14/17 16:29 Sputum - Expectorated Sputum - Final 12/14/17 15:18 Blood Blood Culture - Preliminary 12/14/17 15:43 Blood Blood Culture - Preliminary Laboratory WBC 10.9 X10^3/uL (3.6-10.0) H 12/18/17 04:59 RBC 4.09 X10^6/uL (4.7-6.0) L 12/18/17 04:59 Hgb 11.6 g/dL (13.5-18.0) L 12/18/17 04:59 Hct 35.8 % (42.0-54.0) L 12/18/17 04:59 MCV 87.4 fL (80.0-100.0) 12/18/17 04:59 MCH 28.3 pg (27.0-34.0) 12/18/17 04:59 MCHC 32.4 g/dL (33.0-35.0) L 12/18/17 04:59 RDW 16.2 % (11.6-16.5) 12/18/17 04:59 Plt Count 220 X10^3/uL (150.0-450.0) 12/18/17 04:59 MPV 8.4 fL (7.4-11.0) 12/18/17 04:59 Neut % (Auto) 82.0 % (42.0-75.0) H 12/18/17 04:59 Lymph % (Auto) 7.4 % (21.0-51.0) L 12/18/17 04:59 [place] % (Auto) 8.7 % (0.0-13.0) 12/18/17 04:59 Eos % (Auto) 1.4 % (0.9-2.9) 12/18/17 04:59 Baso % (Auto) 0.5 % (0.2-1.0) 12/18/17 04:59 Neut # (Auto) 9.0 x10^3/uL (2.2-4.8) H 12/18/17 04:59 Lymph # (Auto) 0.8 X10^3/uL (1.3-2.9) L 12/18/17 04:59 [place] # (Auto) 1.0 x10^3/uL (0.3-0.8) H 12/18/17 04:59 Eos # (Auto) 0.2 x10^3/uL (0.0-0.2) 12/18/17 04:59 Baso # (Auto) 0.1 X10^3/uL (0.0-0.1) 12/18/17 04:59 Absolute Nucleated RBC 0.0 /100WBC 12/18/17 04:59 Sample Site Left radial 12/18/17 11:42 ABG pH 7.330 (7.35-7.45) L 12/18/17 11:42 ABG pCO2 72.0 mmHg (35.0-45.0) H* 12/18/17 11:42 ABG pO2 91.0 mmHg (80.0-100.0) 12/18/17 11:42 ABG HCO3 38.0 mmol/L (22-26) H* 12/18/17 11:42 ABG O2 Saturation 96.0 % (90-100) 12/18/17 11:42 ABG Base Excess 9.4 mmol/L (-2.0-2.0) H 12/18/17 11:42 Kumar Test Pos 12/18/17 11:42 A-a Gradient 69.0 mmHg 12/18/17 11:42 FiO2 35 12/18/17 11:42 Blood Gas Comments Elizabeth well mm 12/18/17 11:42 Sodium 139 mmol/L (136-145) 12/18/17 04:59 Corrected Sodium 139 mmol/L (136-145) 12/18/17 04:59 Potassium 4.9 mmol/L (3.5-5.1) 12/18/17 04:59 Chloride 103 mmol/L (98-107) 12/18/17 04:59 Carbon Dioxide 32.8 mmol/L (21-32) H 12/18/17 04:59 BUN 19 mg/dL (7-18) H 12/18/17 04:59 Creatinine 0.99 mg/dL (0.70-1.30) 12/18/17 04:59 Est GFR (MDRD) Af Amer > 60 (>60) 12/18/17 04:59 Est GFR (MDRD) Non-Af > 60 (>60) 12/18/17 04:59 Glucose 118 mg/dL (65-99) H 12/18/17 04:59 Lactic Acid 1.2 mmol/L (0.4-2.0) 12/14/17 15:18 Calcium 8.7 mg/dL (8.5-10.1) 12/18/17 04:59 Corrected Calcium 9.7 mg/dL (8.5-10.1) 12/18/17 04:59 Total Bilirubin 0.20 mg/dL (0.2-1.0) 12/18/17 04:59 AST 34 Units/L (15-37) 12/18/17 04:59 ALT 26 Units/L (12-78) 12/18/17 04:59 Alkaline Phosphatase 69 Units/L (46-116) 12/18/17 04:59 Creatine Kinase 95 Units/L (39-308) 12/14/17 15:18 CK-MB (CK-2) 2.1 ng/mL (0-4.0) 12/14/17 15:18 CK/CKMB % Calc 2.2 % (<4) 12/14/17 15:18 Troponin I < 0.02 ng/mL (0-1.5) 12/14/17 15:18 B-Natriuretic Peptide 326 pg/mL (0-79) H 12/14/17 15:18 Total Protein 8.1 g/dL (6.4-8.2) 12/18/17 04:59 Albumin 2.8 g/dL (3.4-5.0) L 12/18/17 04:59 Globulin 5.3 g/dL (2.5-4.5) H 12/18/17 04:59 Albumin/Globulin Ratio 0.5 Ratio (1.1-2.1) L 12/18/17 04:59 Specimen Type Clean catch urine 12/14/17 18:36 Urine Color Dark yellow (YELLOW) 12/14/17 18:36 Urine Appearance Clear (CLEAR) 12/14/17 18:36 Urine pH 5.0 (5.0 - 8.0) 12/14/17 18:36 Ur Specific [place] 1.015 (1.000-1.030) 12/14/17 18:36 Urine Protein 2+ (NEGATIVE) 12/14/17 18:36 Urine Glucose (UA) Negative (NEGATIVE) 12/14/17 18:36 Urine Ketones Negative (NEGATIVE) 12/14/17 18:36 Urine Occult Blood Negative (NEGATIVE) 12/14/17 18:36 Urine Nitrite Negative (NEGATIVE) 12/14/17 18:36 Urine Bilirubin Negative (NEGATIVE) 12/14/17 18:36 Urine Urobilinogen Normal (NORMAL) 12/14/17 18:36 Ur Leukocyte Esterase Negative (NEGATIVE) 12/14/17 18:36 Urine RBC None seen /HPF (NONE SEEN) 12/14/17 18:36 Urine WBC 0-2 /HPF (NONE SEEN) 12/14/17 18:36 Ur Squamous Epith Cells Rare /HPF (NEGATIVE) 12/14/17 18:36 Ur Renal Epithelial Cell Rare /HPF (NEGATIVE) 12/14/17 18:36 Amorphous Sediment 1+ /HPF (NEGATIVE) 12/14/17 18:36 Urine Bacteria Trace /HPF (NEGATIVE) 12/14/17 18:36 Hyaline Casts Rare /LPF (NEGATIVE) 12/14/17 18:36 Ur Culture Indicated? No/not indicated 12/14/17 18:36 - Plan (1) Pneumonia Status: Acute Qualifiers: Pneumonia type: due to unspecified organism Laterality: right Lung location: lower lobe of lung Qualified Code(s): J18.1 - Lobar pneumonia, unspecified organism Plan: pneumonia protocol, iv cipro, respiratory treatments, supplemental oxygen, continue to monitor (2) Respiratory distress Status: Acute Plan: respiratory treatments, supplemental oxygen, continue to monitor (3) Respiratory failure with hypercapnia Status: Acute Qualifiers: Chronicity: acute on chronic Qualified Code(s): J96.22 - Acute and chronic respiratory failure with hypercapnia Plan: BIPAP
[2017-12-18] MEDS: COLACE CAP 100 MG PO SCH (21:30)
[2017-12-19] MEDS: TUSSIONEX PENNKINETIC SUSP PO PRN (00:30)
[2017-12-19] MEDS ORDERED: NS 1/2 1000 ML IV 1,000 ML IV ONE ×2 (01:23→14:43)
[2017-12-19] MEDS: NS 1/2 1000 ML IV 1,000 ML IV SCH ×2 (01:29→14:44)
[2017-12-19 05:14] LABS: BASOPHILS # (AUTO) 0.1 X10^3/uL (0.0-0.1); BASOPHILS % (AUTO) 0.6 % (0.2-1.0); EOSINOPHILS # (AUTO) 0.1 x10^3/uL (0.0-0.2); EOSINOPHILS % (AUTO) 1.2 % (0.9-2.9); HEMATOCRIT 33.9 % (42.0-54.0); HEMOGLOBIN 10.8 g/dL (13.5-18.0); LYMPHOCYTES # (AUTO) 1.1 X10^3/uL (1.3-2.9); LYMPHOCYTES % (AUTO) 10.8 % (21.0-51.0); MEAN CORPUSCULAR HEMOGLOBIN 27.9 pg (27.0-34.0); MEAN CORPUSCULAR HGB CONC 31.9 g/dL (33.0-35.0); MEAN CORPUSCULAR VOLUME 87.7 fL (80.0-100.0); MONOCYTES % (AUTO) 9.9 % (0.0-13.0); NEUTROPHILS % (AUTO) 77.5 % (42.0-75.0); PLATELET COUNT 207 X10^3/uL (150.0-450.0); RED BLOOD COUNT 3.87 X10^6/uL (4.7-6.0); RED CELL DISTRIBUTION WIDTH 16.1 % (11.6-16.5); WHITE BLOOD COUNT 10.3 X10^3/uL (3.6-10.0)
[2017-12-19 05:33] LABS: ALANINE AMINOTRANSFERASE 24 Units/L (12-78); ALBUMIN 2.5 g/dL (3.4-5.0); ALKALINE PHOSPHATASE 57 Units/L (46-116); ASPARTATE AMINO TRANSFERASE 27 Units/L (15-37); BLOOD UREA NITROGEN 21 mg/dL (7-18); CALCIUM 8.4 mg/dL (8.5-10.1); CARBON DIOXIDE 35.5 mmol/L (21-32); CHLORIDE 102 mmol/L (98-107); COR CA(FOR HYPOALB) 9.6 mg/dL (8.5-10.1); SODIUM 140 mmol/L (136-145); TOTAL PROTEIN 7.3 g/dL (6.4-8.2); eGFR NON BLACK RACES > 60 (>60)
[2017-12-19 05:54] LABS: ABG BASE EXCESS 10.4 mmol/L (-2.0-2.0)
[2017-12-19 05:55] LABS: ABG ALLEN TEST POS; ABG HCO3 38.6 mmol/L (22-26); FRACTIONATED INSPIRED OXYGEN 35
--- NOTE | 2017-12-19 08:05 | RAD ---
HISTORY: Follow-up pneumonia Study: Chest AP portable Comparison: 12/18/2017 Findings: The patient is status post median sternotomy. The heart is within normal limits in size. The olivia are normal. Interstitial lung changes are present bilaterally. No significant change noted in the right lower lobe alveolar pneumonia being followed. Right pleural effusion is decreasing. No left pleural e ffusion is identified. The bony thorax is unremarkable. IMPRESSION: No change right basilar pneumonia Decreasing right pleural effusion Reported By:
[2017-12-19] MEDS: ZYLOPRIM PO SCH (08:10)
[2017-12-19] MEDS: COZAAR PO SCH (08:10)
[2017-12-19] MEDS: TAB-A-VITE PO SCH (08:10)
[2017-12-19] MEDS: ASPIRIN 81 MG CHEWTAB PO SCH (08:10)
[2017-12-19] MEDS: TobraDEX OPHTH OPHTH 1 DOSE LEFTEYE SCH ×2 (08:11→20:09)
[2017-12-19] MEDS: ROBITUSSIN DM PO SCH ×5 (08:11→20:08)
[2017-12-19] MEDS: LOPRESSOR TAB 25 MG PO SCH (08:11)
[2017-12-19] MEDS: ROCEPHIN VIAL 1 GRAM IVP SCH (08:11)
[2017-12-19] MEDS: MILK OF MAGNESIA PO SCH ×2 (08:12→20:08)
[2017-12-19] MEDS ORDERED: LOPRESSOR TAB 25 MG PO SCH (09:00)
[2017-12-19 09:59] LABS: CKMB % 3.6 % (<4); CREATINE KINASE 84 Units/L (39-308); TROPONIN I < 0.02 ng/mL (0-1.5)
[2017-12-19] MEDS: XOPENEX 1.25 MG/3 ML NEBULE NEB SCH ×3 (09:59→20:30)
[2017-12-19] MEDS: PULMICORT NEB TX 0.5 MG NEB SCH ×2 (09:59→20:30)
[2017-12-19] MEDS: Atrovent NEB TX 0.02% NEB SCH ×4 (10:00→20:30)
[2017-12-19] MEDS: KLONOPIN TAB 1 MG PO SCH ×2 (10:38→20:08)
[2017-12-19 14:22] LABS: CKMB % 4.3 % (<4); CREATINE KINASE 73 Units/L (39-308); CREATINE KINASE MB 3.1 ng/mL (0-4.0); TROPONIN I < 0.02 ng/mL (0-1.5)
[2017-12-19 17:48] LABS: CKMB % 3.9 % (<4); CREATINE KINASE 64 Units/L (39-308); CREATINE KINASE MB 2.5 ng/mL (0-4.0); TROPONIN I < 0.02 ng/mL (0-1.5)
[2017-12-19] MEDS: COLACE CAP 100 MG PO SCH (20:08)
[2017-12-19] MEDS: LOPRESSOR TAB 50 MG PO SCH (20:08)
[2017-12-20] MEDS: NS 1/2 1000 ML IV 1,000 ML IV SCH ×5 (03:06→22:05)
[2017-12-20 05:14] LABS: BASOPHILS # (AUTO) 0.1 X10^3/uL (0.0-0.1); BASOPHILS % (AUTO) 1.1 % (0.2-1.0); EOSINOPHILS # (AUTO) 0.3 x10^3/uL (0.0-0.2); EOSINOPHILS % (AUTO) 3.3 % (0.9-2.9); HEMATOCRIT 34.1 % (42.0-54.0); HEMOGLOBIN 10.9 g/dL (13.5-18.0); LYMPHOCYTES # (AUTO) 1.2 X10^3/uL (1.3-2.9); LYMPHOCYTES % (AUTO) 13.8 % (21.0-51.0); MEAN CORPUSCULAR VOLUME 87.3 fL (80.0-100.0); MEAN PLATELET VOLUME 7.8 fL (7.4-11.0); MONOCYTES # (AUTO) 0.9 x10^3/uL (0.3-0.8); MONOCYTES % (AUTO) 10.5 % (0.0-13.0); NEUTROPHILS # (AUTO) 6.3 x10^3/uL (2.2-4.8); NEUTROPHILS % (AUTO) 71.3 % (42.0-75.0); PLATELET COUNT 226 X10^3/uL (150.0-450.0); RED BLOOD COUNT 3.91 X10^6/uL (4.7-6.0); RED CELL DISTRIBUTION WIDTH 15.9 % (11.6-16.5); WHITE BLOOD COUNT 8.8 X10^3/uL (3.6-10.0)
[2017-12-20 05:18] LABS: ALANINE AMINOTRANSFERASE 21 Units/L (12-78); ALBUMIN 2.5 g/dL (3.4-5.0); ALKALINE PHOSPHATASE 55 Units/L (46-116); ASPARTATE AMINO TRANSFERASE 21 Units/L (15-37); BLOOD UREA NITROGEN 22 mg/dL (7-18); CALCIUM 8.6 mg/dL (8.5-10.1); CARBON DIOXIDE 36.3 mmol/L (21-32); CHLORIDE 103 mmol/L (98-107); COR CA(FOR HYPOALB) 9.8 mg/dL (8.5-10.1); CREATININE 0.99 mg/dL (0.70-1.30); SODIUM 142 mmol/L (136-145); TOTAL PROTEIN 7.2 g/dL (6.4-8.2); eGFR NON BLACK RACES > 60 (>60)
[2017-12-20] MEDS ORDERED: NS 1/2 1000 ML IV 1,000 ML IV ONE ×2 (05:28→22:36)
--- NOTE | 2017-12-20 07:28 | RAD ---
HISTORY: Follow-up pneumonia Study: Chest AP portable Comparison: 12/19/2017 Findings: The patient is status post median sternotomy. The heart is upper limits normal in size. The olivia are normal. The lungs are well inflated. Mild interstitial lung changes are present bilaterally. There is slight improvement in the right lower lobe infiltrate being followed. Right pleural effusion appears to have resolved. No left pleural effusion is identified. The bony thorax is unremarkable. IMPRESSION: Improving right basilar lung infiltrate Reported By:
[2017-12-20] MEDS: XOPENEX 1.25 MG/3 ML NEBULE NEB SCH ×5 (07:59→20:15)
[2017-12-20] MEDS: PULMICORT NEB TX 0.5 MG NEB SCH ×2 (07:59→20:15)
[2017-12-20] MEDS: Atrovent NEB TX 0.02% NEB SCH ×4 (08:00→20:15)
[2017-12-20] MEDS ORDERED: NS 100 ML IV + SPIKE MINIBAG* 100 ML IV ONE (08:19)
[2017-12-20] MEDS: ASPIRIN 81 MG CHEWTAB PO SCH (09:12)
[2017-12-20] MEDS: LOPRESSOR TAB 50 MG PO SCH ×2 (09:12→21:33)
[2017-12-20] MEDS: MILK OF MAGNESIA PO SCH ×2 (09:13→21:33)
[2017-12-20] MEDS: TAB-A-VITE PO SCH (09:13)
[2017-12-20] MEDS: KLONOPIN TAB 1 MG PO SCH (09:13)
[2017-12-20] MEDS: COZAAR PO SCH (09:13)
[2017-12-20] MEDS: LEVAQUIN PREMIX IV 750 MG 750 MG/150 ML BAG IV SCH (09:13)
[2017-12-20] MEDS: ZYLOPRIM PO SCH (09:13)
[2017-12-20] MEDS: ROCEPHIN VIAL 1 GRAM IVP SCH (09:14)
[2017-12-20] MEDS: TobraDEX OPHTH OPHTH 1 DOSE LEFTEYE SCH ×2 (09:14→21:34)
[2017-12-20] MEDS: ROBITUSSIN DM PO SCH ×4 (09:14→21:33)
--- NOTE | 2017-12-20 10:50 | PCM.PROG ---
Progress Note - Progress Note for Day of Date of Exam: 12/19/17 - Subjective Subjective: WAS ADMITTED FOR RIGHT LOWER LOBE PNEUMONIA AND RESPIRATORY DISTRESS. HE WAS PLACED ON THE BIPAP YESTERDAY. HE CONTINUES WITH COUGH, SHORTNESS OF BREATH, AND GENERALIZED WEAKNESS TODAY. HE REPORTS AN INCREASE IN SHORTNESS OF BREATH SINCE YESTERDAY. HE CONTINUES TO BE HYPERTENSIVE WITH TACHYCARDIA DESPITE CHANGES MADE TO MEDICATIONS. HIS VITALS THIS MORNING ARE 97.6-115-22-93%NC-190/80. ABNORMAL LABS INCLUDE THE FOLLOWING: WBC 10.3, RBC 3.87, HGB 10.8, HCT 33.9, CARBON DIOXIDE 35.5, BUN 21, GLUCOSE 105 , CALCIUM 8.4, ALBUMIN 2.5, GLOBULIN 4.8. ABG REVEALED: PH 7.350, PC02 70.0, P02 96.0, HC03 38.6, 02 SATURATION 97.0, BASE EXCESS 10.4. CHEST XRAY OBTAINED AND REVEALED: The patient is status post median sternotomy. The heart is within normal limits in size. The olivia are normal. Interstitial lung changes are present bilaterally. No significant change noted in the right lower lobe alveolar pneumonia being followed. Right pleural effusion is decreasing. No left pleural effusion is identified. The bony thorax is unremarkable. AN ECHO WAS OBTAINED YESTERDAY AND REVEALED AN EJECTION FRACTION OF 49% WITH MILD LVH AND E/A REVERSAL. HE CONTINUES TO RECEIVE IV ANTIBIOTICS, RESPIRATORY TREATMENTS , AND SUPPLEMENTAL OXYGEN. TODAY, WE WILL INCREASE THE METOPROLOL TO 50MG PO BID. OTHERWIE, WE WILL CONTINUE WITH CURRENT PLAN OF CARE. WE WILL FOLLOW UP WITH AM LABS, CHEST XRAY, AND ABG AND CONTINUE TO MONITOR PATIENT. - Past Medical Family Social History Past Med/Fam/Surg Hx: No changes since H&P Allergies: Allergies No Known Drug Allergies Allergy (Verified 12/14/17 14:27) - Review of Systems ROS: No change since H&P - Vital Signs and I&O's Vital Signs: Temperature 98.0 F Pulse Rate [Apical] 78 Pulse Rate 75 Respiratory Rate 20 Blood Pressure [Right Arm] 166/75 Blood Pressure [Left Arm] 172/79 Blood Pressure 217/95 O2 Sat by Pulse Oximetry 96 Intake and Output: Intake & Output 12/17/17 12/18/17 12/19/17 12/20/17 11:59 11:59 11:59 11:59 Intake Total 2547 / 2547 2564 / 2564 1320 / 1320 1520 / 1520 Output Total 2099 / 2100 195 / 195 625 / 625 850 / 850 Balance 447 / 447 612 / 612 695 / 695 670 / 670 - Physical Exam Oriented: Normal Eyes: Normal Ear: Normal Nose: Normal Throat: Normal Respiratory: Generalized, Diminished, Wheezes Cardiovascular: Tachycardia, Edema (bilateral lower extremities ). negative: S3 , S4, Murmur : Normal Auscultation: Bowel Sounds: Normal Palpation: Normal Tenderness: Normal Skin: Normal Musculoskeletal: Normal Psychiatric: Other (CONFUSION ) Mood Description: Calm Affect: Normal Speech Pattern: Clear - Laboratory and Diagnostics Result Diagrams: 12/20/17 04:50 12/20/17 04:50 Labs: 12/14/17 15:43 Blood Blood Culture - Final 12/14/17 15:18 Blood Blood Culture - Final 12/14/17 16:29 Sputum - Expectorated Sputum Sputum Culture - Preliminary 12/14/17 16:29 Sputum - Expectorated Sputum - Final Laboratory WBC 8.8 X10^3/uL (3.6-10.0) 12/20/17 04:50 RBC 3.91 X10^6/uL (4.7-6.0) L 12/20/17 04:50 Hgb 10.9 g/dL (13.5-18.0) L 12/20/17 04:50 Hct 34.1 % (42.0-54.0) L 12/20/17 04:50 MCV 87.3 fL (80.0-100.0) 12/20/17 04:50 MCH 28.0 pg (27.0-34.0) 12/20/17 04:50 MCHC 32.0 g/dL (33.0-35.0) L 12/20/17 04:50 RDW 15.9 % (11.6-16.5) 12/20/17 04:50 Plt Count 226 X10^3/uL (150.0-450.0) 12/20/17 04:50 MPV 7.8 fL (7.4-11.0) 12/20/17 04:50 Neut % (Auto) 71.3 % (42.0-75.0) 12/20/17 04:50 Lymph % (Auto) 13.8 % (21.0-51.0) L 12/20/17 04:50 [place] % (Auto) 10.5 % (0.0-13.0) 12/20/17 04:50 Eos % (Auto) 3.3 % (0.9-2.9) H 12/20/17 04:50 Baso % (Auto) 1.1 % (0.2-1.0) H 12/20/17 04:50 Neut # (Auto) 6.3 x10^3/uL (2.2-4.8) H 12/20/17 04:50 Lymph # (Auto) 1.2 X10^3/uL (1.3-2.9) L 12/20/17 04:50 [place] # (Auto) 0.9 x10^3/uL (0.3-0.8) H 12/20/17 04:50 Eos # (Auto) 0.3 x10^3/uL (0.0-0.2) H 12/20/17 04:50 Baso # (Auto) 0.1 X10^3/uL (0.0-0.1) 12/20/17 04:50 Absolute Nucleated RBC 0.0 /100WBC 12/20/17 04:50 Sample Site Rrad 12/19/17 05:44 ABG pH 7.350 (7.35-7.45) 12/19/17 05:44 ABG pCO2 70.0 mmHg (35.0-45.0) H* 12/19/17 05:44 ABG pO2 96.0 mmHg (80.0-100.0) 12/19/17 05:44 ABG HCO3 38.6 mmol/L (22-26) H* 12/19/17 05:44 ABG O2 Saturation 97.0 % (90-100) 12/19/17 05:44 ABG Base Excess 10.4 mmol/L (-2.0-2.0) H 12/19/17 05:44 Kumar Test Pos 12/19/17 05:44 A-a Gradient 66.0 mmHg 12/19/17 05:44 FiO2 35 12/19/17 05:44 Blood Gas Comments Elizabeth abg well-mtf 12/19/17 05:44 Sodium 142 mmol/L (136-145) 12/20/17 04:50 Corrected Sodium TNP 12/20/17 04:50 Potassium 4.6 mmol/L (3.5-5.1) 12/20/17 04:50 Chloride 103 mmol/L (98-107) 12/20/17 04:50 Carbon Dioxide 36.3 mmol/L (21-32) H 12/20/17 04:50 BUN 22 mg/dL (7-18) H 12/20/17 04:50 Creatinine 0.99 mg/dL (0.70-1.30) 12/20/17 04:50 Est GFR (MDRD) Af Amer > 60 (>60) 12/20/17 04:50 Est GFR (MDRD) Non-Af > 60 (>60) 12/20/17 04:50 Glucose 89 mg/dL (65-99) 12/20/17 04:50 Lactic Acid 1.2 mmol/L (0.4-2.0) 12/14/17 15:18 Calcium 8.6 mg/dL (8.5-10.1) 12/20/17 04:50 Corrected Calcium 9.8 mg/dL (8.5-10.1) 12/20/17 04:50 Total Bilirubin 0.20 mg/dL (0.2-1.0) 12/20/17 04:50 AST 21 Units/L (15-37) 12/20/17 04:50 ALT 21 Units/L (12-78) 12/20/17 04:50 Alkaline Phosphatase 55 Units/L (46-116) 12/20/17 04:50 Creatine Kinase 64 Units/L (39-308) 12/19/17 17:19 CK-MB (CK-2) 2.5 ng/mL (0-4.0) 12/19/17 17:19 CK/CKMB % Calc 3.9 % (<4) 12/19/17 17:19 Troponin I < 0.02 ng/mL (0-1.5) 12/19/17 17:19 B-Natriuretic Peptide 326 pg/mL (0-79) H 12/14/17 15:18 Total Protein 7.2 g/dL (6.4-8.2) 12/20/17 04:50 Albumin 2.5 g/dL (3.4-5.0) L 12/20/17 04:50 Globulin 4.7 g/dL (2.5-4.5) H 12/20/17 04:50 Albumin/Globulin Ratio 0.5 Ratio (1.1-2.1) L 12/20/17 04:50 Specimen Type Clean catch urine 12/14/17 18:36 Urine Color Dark yellow (YELLOW) 12/14/17 18:36 Urine Appearance Clear (CLEAR) 12/14/17 18:36 Urine pH 5.0 (5.0 - 8.0) 12/14/17 18:36 Ur Specific [place] 1.015 (1.000-1.030) 12/14/17 18:36 Urine Protein 2+ (NEGATIVE) 12/14/17 18:36 Urine Glucose (UA) Negative (NEGATIVE) 12/14/17 18:36 Urine Ketones Negative (NEGATIVE) 12/14/17 18:36 Urine Occult Blood Negative (NEGATIVE) 12/14/17 18:36 Urine Nitrite Negative (NEGATIVE) 12/14/17 18:36 Urine Bilirubin Negative (NEGATIVE) 12/14/17 18:36 Urine Urobilinogen Normal (NORMAL) 12/14/17 18:36 Ur Leukocyte Esterase Negative (NEGATIVE) 12/14/17 18:36 Urine RBC None seen /HPF (NONE SEEN) 12/14/17 18:36 Urine WBC 0-2 /HPF (NONE SEEN) 12/14/17 18:36 Ur Squamous Epith Cells Rare /HPF (NEGATIVE) 12/14/17 18:36 Ur Renal Epithelial Cell Rare /HPF (NEGATIVE) 12/14/17 18:36 Amorphous Sediment 1+ /HPF (NEGATIVE) 12/14/17 18:36 Urine Bacteria Trace /HPF (NEGATIVE) 12/14/17 18:36 Hyaline Casts Rare /LPF (NEGATIVE) 12/14/17 18:36 Ur Culture Indicated? No/not indicated 12/14/17 18:36 - Plan (1) Pneumonia Status: Acute Qualifiers: Pneumonia type: due to unspecified organism Laterality: right Lung location: lower lobe of lung Qualified Code(s): J18.1 - Lobar pneumonia, unspecified organism Plan: pneumonia protocol, iv cipro, respiratory treatments, supplemental oxygen , continue to monitor (2) Respiratory distress Status: Acute Plan: respiratory treatments, supplemental oxygen, continue to monitor (3) Respiratory failure with hypercapnia Status: Acute Qualifiers: Chronicity: acute on chronic Qualified Code(s): J96.22 - Acute and chronic respiratory failure with hypercapnia Plan: BIPAP (4) Hypertension Status: Acute Qualifiers: Hypertension type: essential hypertension Qualified Code(s): I10 - Essential (primary) hypertension Plan: LOSARTAN 100MG PO DAILY, LOPRESSOR 50MG PO BID, CONTINUE TO MONITOR (5) Gout Status: Chronic Qualifiers: Gout site: unspecified site Gout etiology: unspecified cause Chronicity: chronic Presence of tophus: without tophus Qualified Code(s): M1A.9XX0 - Chronic gout, unspecified, without tophus (tophi) Plan: CONTINUE ALLOPURINOL, CONTINUE TO MONITOR (6) COPD (chronic obstructive pulmonary disease) Status: Chronic Qualifiers: COPD type: unspecified COPD Qualified Code(s): J44.9 - Chronic obstructive pulmonary disease, unspecified Plan: CONTINUE NEB TX, BIPAP, SUPPLEMENTAL OXYGEN, CONTINUE TO MONITOR
--- NOTE | 2017-12-20 20:25 | PCM.PROG ---
Progress Note - Progress Note for Day of Date of Exam: 12/20/17 - Subjective Subjective: WAS ADMITTED FOR RIGHT LOWER LOBE PNEUMONIA AND RESPIRATORY DISTRESS. HE CONTINUES WITH COUGH, SHORTNESS OF BREATH, AND GENERALIZED WEAKNESS TODAY. HE REPORTS IMPROVEMENT SINCE YESTERDAY. BLOOD PRESSURE AND HEART RATE ARE BETTER CONTROLLED TODAY. HIS VITALS THIS MORNING ARE 97.7-75-20-95%-133/69. ABNORMAL LABS INCLUDE THE FOLLOWING: RBC 3.91, HGB 10.9, HCT 34.1, CARBON DIOXIDE 36.3, BUN 22, ALBUMIN 2.5. CARDIAC ENZYMES HAVE BEEN WITHIN NORMAL LIMITS. CHEST XRAY OBTAINED AND REVEALED: The patient is status post median sternotomy. The heart is upper limits normal in size. The olivia are normal. The lungs are well inflated. Mild interstitial lung changes are present bilaterally. There is slight improvement in the right lower lobe infiltrate being followed. Right pleural effusion appears to have resolved. No left pleural effusion is identified. The bony thorax is unremarkable. HE CONTINUES TO RECEIVE IV ANTIBIOTICS, RESPIRATORY TREATMENTS, AND SUPPLEMENTAL OXYGEN. WE WILL CONTINUE WITH CURRENT PLAN OF CARE. WE WILL FOLLOW UP WITH AM LABS, CHEST XRAY, AND ABG AND CONTINUE TO MONITOR PATIENT. - Past Medical Family Social History Past Med/Fam/Surg Hx: No changes since H&P Allergies: Allergies No Known Drug Allergies Allergy (Verified 12/14/17 14:27) - Review of Systems ROS: No change since H&P - Vital Signs and I&O's Vital Signs: Temperature 97.9 F Pulse Rate [Apical] 83 Pulse Rate 75 Respiratory Rate 20 Blood Pressure [Right Arm] 166/75 Blood Pressure [Left Arm] 148/66 Blood Pressure 217/95 O2 Sat by Pulse Oximetry 97 Intake and Output: Intake & Output 12/18/17 12/19/17 12/20/17 12/21/17 11:59 11:59 11:59 11:59 Intake Total 2564 / 2564 1320 / 1320 1520 / 1520 700 / 700 Output Total 195 / 195 625 / 625 850 / 850 300 / 300 Balance 612 / 612 695 / 695 670 / 670 400 / 400 - Physical Exam Oriented: Normal Eyes: Normal Ear: Normal Nose: Normal Throat: Normal Respiratory: Generalized, Diminished, Wheezes Cardiovascular: Tachycardia, Edema (bilateral lower extremities ). negative: S3 , S4, Murmur : Normal Auscultation: Bowel Sounds: Normal Tenderness: Normal Skin: Normal Musculoskeletal: Normal Psychiatric: Other (CONFUSION ) Mood Description: Calm Affect: Normal Speech Pattern: Clear - Laboratory and Diagnostics Result Diagrams: 12/20/17 04:50 12/20/17 04:50 Labs: 12/14/17 15:43 Blood Blood Culture - Final 12/14/17 15:18 Blood Blood Culture - Final 12/14/17 16:29 Sputum - Expectorated Sputum Sputum Culture - Preliminary 12/14/17 16:29 Sputum - Expectorated Sputum - Final Laboratory WBC 8.8 X10^3/uL (3.6-10.0) 12/20/17 04:50 RBC 3.91 X10^6/uL (4.7-6.0) L 12/20/17 04:50 Hgb 10.9 g/dL (13.5-18.0) L 12/20/17 04:50 Hct 34.1 % (42.0-54.0) L 12/20/17 04:50 MCV 87.3 fL (80.0-100.0) 12/20/17 04:50 MCH 28.0 pg (27.0-34.0) 12/20/17 04:50 MCHC 32.0 g/dL (33.0-35.0) L 12/20/17 04:50 RDW 15.9 % (11.6-16.5) 12/20/17 04:50 Plt Count 226 X10^3/uL (150.0-450.0) 12/20/17 04:50 MPV 7.8 fL (7.4-11.0) 12/20/17 04:50 Neut % (Auto) 71.3 % (42.0-75.0) 12/20/17 04:50 Lymph % (Auto) 13.8 % (21.0-51.0) L 12/20/17 04:50 [place] % (Auto) 10.5 % (0.0-13.0) 12/20/17 04:50 Eos % (Auto) 3.3 % (0.9-2.9) H 12/20/17 04:50 Baso % (Auto) 1.1 % (0.2-1.0) H 12/20/17 04:50 Neut # (Auto) 6.3 x10^3/uL (2.2-4.8) H 12/20/17 04:50 Lymph # (Auto) 1.2 X10^3/uL (1.3-2.9) L 12/20/17 04:50 [place] # (Auto) 0.9 x10^3/uL (0.3-0.8) H 12/20/17 04:50 Eos # (Auto) 0.3 x10^3/uL (0.0-0.2) H 12/20/17 04:50 Baso # (Auto) 0.1 X10^3/uL (0.0-0.1) 12/20/17 04:50 Absolute Nucleated RBC 0.0 /100WBC 12/20/17 04:50 Sample Site Rrad 12/19/17 05:44 ABG pH 7.350 (7.35-7.45) 12/19/17 05:44 ABG pCO2 70.0 mmHg (35.0-45.0) H* 12/19/17 05:44 ABG pO2 96.0 mmHg (80.0-100.0) 12/19/17 05:44 ABG HCO3 38.6 mmol/L (22-26) H* 12/19/17 05:44 ABG O2 Saturation 97.0 % (90-100) 12/19/17 05:44 ABG Base Excess 10.4 mmol/L (-2.0-2.0) H 12/19/17 05:44 Kumar Test Pos 12/19/17 05:44 A-a Gradient 66.0 mmHg 12/19/17 05:44 FiO2 35 12/19/17 05:44 Blood Gas Comments Elizabeth abg well-mtf 12/19/17 05:44 Sodium 142 mmol/L (136-145) 12/20/17 04:50 Corrected Sodium TNP 12/20/17 04:50 Potassium 4.6 mmol/L (3.5-5.1) 12/20/17 04:50 Chloride 103 mmol/L (98-107) 12/20/17 04:50 Carbon Dioxide 36.3 mmol/L (21-32) H 12/20/17 04:50 BUN 22 mg/dL (7-18) H 12/20/17 04:50 Creatinine 0.99 mg/dL (0.70-1.30) 12/20/17 04:50 Est GFR (MDRD) Af Amer > 60 (>60) 12/20/17 04:50 Est GFR (MDRD) Non-Af > 60 (>60) 12/20/17 04:50 Glucose 89 mg/dL (65-99) 12/20/17 04:50 Lactic Acid 1.2 mmol/L (0.4-2.0) 12/14/17 15:18 Calcium 8.6 mg/dL (8.5-10.1) 12/20/17 04:50 Corrected Calcium 9.8 mg/dL (8.5-10.1) 12/20/17 04:50 Total Bilirubin 0.20 mg/dL (0.2-1.0) 12/20/17 04:50 AST 21 Units/L (15-37) 12/20/17 04:50 ALT 21 Units/L (12-78) 12/20/17 04:50 Alkaline Phosphatase 55 Units/L (46-116) 12/20/17 04:50 Creatine Kinase 64 Units/L (39-308) 12/19/17 17:19 CK-MB (CK-2) 2.5 ng/mL (0-4.0) 12/19/17 17:19 CK/CKMB % Calc 3.9 % (<4) 12/19/17 17:19 Troponin I < 0.02 ng/mL (0-1.5) 12/19/17 17:19 B-Natriuretic Peptide 326 pg/mL (0-79) H 12/14/17 15:18 Total Protein 7.2 g/dL (6.4-8.2) 12/20/17 04:50 Albumin 2.5 g/dL (3.4-5.0) L 12/20/17 04:50 Globulin 4.7 g/dL (2.5-4.5) H 12/20/17 04:50 Albumin/Globulin Ratio 0.5 Ratio (1.1-2.1) L 12/20/17 04:50 Specimen Type Clean catch urine 12/14/17 18:36 Urine Color Dark yellow (YELLOW) 12/14/17 18:36 Urine Appearance Clear (CLEAR) 12/14/17 18:36 Urine pH 5.0 (5.0 - 8.0) 12/14/17 18:36 Ur Specific [place] 1.015 (1.000-1.030) 12/14/17 18:36 Urine Protein 2+ (NEGATIVE) 12/14/17 18:36 Urine Glucose (UA) Negative (NEGATIVE) 12/14/17 18:36 Urine Ketones Negative (NEGATIVE) 12/14/17 18:36 Urine Occult Blood Negative (NEGATIVE) 12/14/17 18:36 Urine Nitrite Negative (NEGATIVE) 12/14/17 18:36 Urine Bilirubin Negative (NEGATIVE) 12/14/17 18:36 Urine Urobilinogen Normal (NORMAL) 12/14/17 18:36 Ur Leukocyte Esterase Negative (NEGATIVE) 12/14/17 18:36 Urine RBC None seen /HPF (NONE SEEN) 12/14/17 18:36 Urine WBC 0-2 /HPF (NONE SEEN) 12/14/17 18:36 Ur Squamous Epith Cells Rare /HPF (NEGATIVE) 12/14/17 18:36 Ur Renal Epithelial Cell Rare /HPF (NEGATIVE) 12/14/17 18:36 Amorphous Sediment 1+ /HPF (NEGATIVE) 12/14/17 18:36 Urine Bacteria Trace /HPF (NEGATIVE) 12/14/17 18:36 Hyaline Casts Rare /LPF (NEGATIVE) 12/14/17 18:36 Ur Culture Indicated? No/not indicated 12/14/17 18:36 - Plan (1) Pneumonia Status: Acute Qualifiers: Pneumonia type: due to unspecified organism Laterality: right Lung location: lower lobe of lung Qualified Code(s): J18.1 - Lobar pneumonia, unspecified organism Plan: pneumonia protocol, iv cipro, respiratory treatments, supplemental oxygen , continue to monitor (2) Respiratory distress Status: Acute Plan: respiratory treatments, supplemental oxygen, continue to monitor (3) Respiratory failure with hypercapnia Status: Acute Qualifiers: Chronicity: acute on chronic Qualified Code(s): J96.22 - Acute and chronic respiratory failure with hypercapnia Plan: BIPAP (4) Hypertension Status: Acute Qualifiers: Hypertension type: essential hypertension Qualified Code(s): I10 - Essential (primary) hypertension Plan: LOSARTAN 100MG PO DAILY, LOPRESSOR 50MG PO BID, CONTINUE TO MONITOR (5) Gout Status: Chronic Qualifiers: Gout site: unspecified site Gout etiology: unspecified cause Chronicity: chronic Presence of tophus: without tophus Qualified Code(s): M1A.9XX0 - Chronic gout, unspecified, without tophus (tophi) Plan: CONTINUE ALLOPURINOL, CONTINUE TO MONITOR (6) COPD (chronic obstructive pulmonary disease) Status: Chronic Qualifiers: COPD type: unspecified COPD Qualified Code(s): J44.9 - Chronic obstructive pulmonary disease, unspecified Plan: CONTINUE NEB TX, BIPAP, SUPPLEMENTAL OXYGEN, CONTINUE TO MONITOR
[2017-12-20] MEDS: COLACE CAP 100 MG PO SCH (21:33)
[2017-12-21] MEDS: TUSSIONEX PENNKINETIC SUSP PO PRN (00:54)
[2017-12-21] MEDS: NS 1/2 1000 ML IV 1,000 ML IV SCH (04:48)
[2017-12-21 05:06] LABS: BASOPHILS # (AUTO) 0.1 X10^3/uL (0.0-0.1); EOSINOPHILS # (AUTO) 0.3 x10^3/uL (0.0-0.2); EOSINOPHILS % (AUTO) 3.1 % (0.9-2.9); HEMATOCRIT 31.9 % (42.0-54.0); HEMOGLOBIN 10.5 g/dL (13.5-18.0); LYMPHOCYTES # (AUTO) 1.4 X10^3/uL (1.3-2.9); LYMPHOCYTES % (AUTO) 15.5 % (21.0-51.0); MEAN CORPUSCULAR HEMOGLOBIN 28.6 pg (27.0-34.0); MEAN CORPUSCULAR HGB CONC 32.8 g/dL (33.0-35.0); MEAN CORPUSCULAR VOLUME 87.1 fL (80.0-100.0); MEAN PLATELET VOLUME 7.5 fL (7.4-11.0); MONOCYTES # (AUTO) 0.9 x10^3/uL (0.3-0.8); MONOCYTES % (AUTO) 10.1 % (0.0-13.0); NEUTROPHILS # (AUTO) 6.2 x10^3/uL (2.2-4.8); NEUTROPHILS % (AUTO) 70.3 % (42.0-75.0); PLATELET COUNT 230 X10^3/uL (150.0-450.0); RED BLOOD COUNT 3.66 X10^6/uL (4.7-6.0); RED CELL DISTRIBUTION WIDTH 15.6 % (11.6-16.5); WHITE BLOOD COUNT 8.8 X10^3/uL (3.6-10.0)
[2017-12-21 05:13] LABS: ALANINE AMINOTRANSFERASE 26 Units/L (12-78); ALBUMIN 2.4 g/dL (3.4-5.0); ALKALINE PHOSPHATASE 55 Units/L (46-116); ASPARTATE AMINO TRANSFERASE 27 Units/L (15-37); BLOOD UREA NITROGEN 17 mg/dL (7-18); CALCIUM 8.4 mg/dL (8.5-10.1); CARBON DIOXIDE 39.2 mmol/L (21-32); CHLORIDE 102 mmol/L (98-107); COR CA(FOR HYPOALB) 9.7 mg/dL (8.5-10.1); SODIUM 142 mmol/L (136-145); TOTAL PROTEIN 6.9 g/dL (6.4-8.2); eGFR NON BLACK RACES > 60 (>60)
--- NOTE | 2017-12-21 07:09 | RAD ---
HISTORY: Shortness of breath; cough. Prior history of hypertension and COPD. Study: Single-view chest Comparison: 12/20/2017. Findings: There are again changes of thoracotomy with median sternotomy sutures present. The trachea is midline . Heart size is normal. Diminishing interstitial markings are noted bilaterally. Left lungs clear. Fu rther improved aeration is noted with still a right basilar focus of interstitial infiltrate present. No pleural fluid or pneumothorax is seen. Osseous structures are intact. IMPRESSION: Further improvement with still a small focus of infiltrate noted in the right lower lobe. Reported By:
[2017-12-21] MEDS: Atrovent NEB TX 0.02% NEB SCH ×2 (08:53→12:01)
[2017-12-21] MEDS: XOPENEX 1.25 MG/3 ML NEBULE NEB SCH ×2 (08:53→12:01)
[2017-12-21] MEDS: PULMICORT NEB TX 0.5 MG NEB SCH (08:54)
[2017-12-21] MEDS: ASPIRIN 81 MG CHEWTAB PO SCH (09:41)
[2017-12-21] MEDS: LOPRESSOR TAB 50 MG PO SCH (09:42)
[2017-12-21] MEDS: COZAAR PO SCH (09:42)
[2017-12-21] MEDS: ROBITUSSIN DM PO SCH (09:42)
[2017-12-21] MEDS: MILK OF MAGNESIA PO SCH ×2 (09:42→09:52)
[2017-12-21] MEDS: TobraDEX OPHTH OPHTH 1 DOSE LEFTEYE SCH (09:43)
[2017-12-21] MEDS: ZYLOPRIM PO SCH (09:43)
[2017-12-21] MEDS: ROCEPHIN VIAL 1 GRAM IVP SCH ×2 (09:43→09:52)
[2017-12-21] MEDS: TAB-A-VITE PO SCH (09:43)
[2017-12-21 12:52] VITALS: BP 131/77
--- NOTE | 2018-01-22 23:22 | DR.CARTERD ---
- Discharge Summary for: Discharge Summary for Date of:: 12/21/17 - Admission Date Date of Admission: 12/14/17 - Admission Diagnoses Admission Diagnosis: (1) Pneumonia (2) Respiratory distress - Discharge Date Discharge Date: 12/21/17 - Discharge Diagnoses Discharge Diagnosis: (1) Pneumonia (2) Respiratory distress - Hospital Course Hospital Course: MR. ACEVEDO IS A 77 YEAR OLD PATIENT OF [facility] WHO PRESENTED TO THE EMERGENCY ROOM WITH COMPLAINTS OF LOW BLOOD PRESSURE, ELEVATED HEART RATE, AND LOW OXYGEN SATURATIONS. PATIENT REPORTED THAT HE HAD COUGH, COLD, CONGESTION, AND FEVER FOR THE PAST WEEK. ON ARRIVAL, VITALS WERE 98.7-103-18-92%RA-115/54. LABS WERE OBTAINED. ABNORMAL LAB VALUES INCLUDED THE FOLLOWING: WBC 16.5, RBC 4.22, HGB 11.9, HCT 36.6, CARBON DIOXIDE 32.1, BUN 30, CREATININE 1.55, GLUCOSE 135, ALBUMIM 3.0, GLOBULIN 4.9. ABG REVEALED: PH 7.350, PC02 57.0, P02 63.0, HC03 31.5, 02 SATURATION 91.0, BASE EXCESS 4.5. CARDIAC ENZYMES WITHIN NORMAL LIMITS. EKG REVEALED SINUS RHYTHM. BLOOD AND SPUTUM CULTURES WERE OBTAINED. A CHEST XRAY WAS OBTAINED AND REVEALED: Right lower lobe pneumonitis. STAFF REPORTED THAT PATIENTS OXYGEN SATURATIONS FELL INTO THE 60S WHILE AMBULATING ON NC 3L/MIN. OXYGEN SATURATIONS INCREASED TO THE LOW 90S AFTER DEEP BREATHING. HE WAS GIVEN LEVAQUIN 750MG IV X 1 DOSE AND ROCEPHIN 1G IV X 1 DOSE IN THE ER. HE WAS ADMITTED TO THE INTENSIVE CARE UNIT FOR FURTHER EVALUATION AND TREATMENT OF PNEUMONIA AND RESPIRATORY DISTRESS. WE CONTINUED TO MONITOR PATIENT. PATIENT WAS PLACED ON PNEUMONIA PROTOCOL FOR AGGRESSIVE PULMONARY TOILETING AND SUPPLEMENTAL OXYGEN. TREATMENT WAS CONTINUED. ON DAY FIVE, PATIENT HAD SOME ALTERED MENTAL STATUS. OXYGEN SATURATIONS WERE FALLING INTO THE 70S WHEN AMBULATING. WE STARTED BIPAP AND CONTINUED TO MONITOR. A BRAIN CT WAS OBTAINED AND REPORTED: STATUS POST RIGHT FRONTAL PARIETAL CRANIOTOMY AND PROBABLE OLD CORTICAL INFARCTS OR POSTOP CHANGES ALONG THE FRONTOPARIETAL REGION WITH NO ACUTE INTRACRANIAL ABNORMALITY SEEN; MILD ATROPHY MILD CHRONIC MICROISCHEMIC CHANGES THROUGHOUT THE DEEP WHITE MATTER. AN ECHO WAS OBTAINED AND REVEALED AN EJECTION FRACTION OF 49% WITH MILD LVH AND E/A REVERSAL. DAY SIX, PATIENT WAS HYPERTENSIVE NOTED WITH SYSTOLIC BP OF 190. HE CONTINUED WITH COUGH, CONGESTION. HE CONTINUED TO RECEIVE IV ANTIBIOTICS, RESPIRATORY TREATMENTS, AND SUPPLEMENTAL OXYGEN. WE INCREASED THE METOPROLOL TO 50MG PO BID. DAY SEVEN, HE CONTINUED WITH COUGH, SHORTNESS OF BREATH, AND GENERALIZED WEAKNESS. BLOOD PRESSURE AND HEART RATE WERE BETTER CONTROLLED. HIS VITALS WERE 97.7-75-20-95%-133/69. ABNORMAL LABS INCLUDED THE FOLLOWING: RBC 3.91, HGB 10.9, HCT 34.1, CARBON DIOXIDE 36.3, BUN 22, ALBUMIN 2.5. CARDIAC ENZYMES WERE WITHIN NORMAL LIMITS. CHEST XRAY OBTAINED AND REVEALED: The patient is status post median sternotomy. The heart is upper limits normal in size. The olivia are normal. The lungs are well inflated. Mild interstitial lung changes are present bilaterally. There is slight improvement in the right lower lobe infiltrate being followed. Right pleural effusion appears to have resolved. No left pleural effusion is identified. The bony thorax is unremarkable. HE CONTINUED TO RECEIVE IV ANTIBIOTICS, RESPIRATORY TREATMENTS, AND SUPPLEMENTAL OXYGEN. DAY EIGHT, PATIENT REPORTED HE WAS FEELING BETTER. HE REPORTED IMPROVEMENT IN COUGH. HE DENIED SHORTNESS OF BREATH. VITAL SIGNS STABLE. LABS WNL. BLOOD AND SPUTUM CULTURES WERE NEGATIVE. WE PLANNED FOR DISCHARGE. INSTRUCTIONS FOR MEDICATIONS AND FOLLOW UP WERE DISCUSSED WITH PATIENT AND FAMILY, BOTH VOICED UNDERSTANDING. PATIENT DISCHARGED HOME IN STABLE CONDITION WITH FAMILY. - Discharge Medications Discharge Medications: Home Medication List albuterol sulfate [Ventolin HFA] 2 puff INHALATION Q4H PRN 12/14/17 [History] allopurinol 1 tab PO DAILY 12/14/17 [History] acjtsgbxuxu-ukptlqjmo-clxxysaj [Trelegy Ellipta] 1 puff INHALATION DAILY 12/14/17 [History] furosemide 1 tab PO DAILY 12/14/17 [History] levalbuterol HCl 1 inh INHALATION Q4H PRN 12/14/17 [History] clonazepam [Klonopin] 1 mg PO HS #30 tab 12/21/17 [Rx] levofloxacin [Levaquin] 500 mg PO QDAY #10 tab 12/21/17 [Rx] losartan [Cozaar] 100 mg PO QDAY #30 tab 12/21/17 [Rx] metoprolol tartrate 50 mg PO BID #60 tab 12/21/17 [Rx] levalbuterol HCl [Xopenex] 1.25 mg INHALATION TID #50 ml 12/22/17 [Rx] Prescriptions: clonazepam [Klonopin] Jose David Paulson levalbuterol HCl [Xopenex] Jose David Paulson levofloxacin [Levaquin] Jose David Paulson losartan [Cozaar] Jose David Paulson metoprolol tartrate Jose David Paulson - Discharge Disposition Discharge Disposition: PATIENT IS TO FOLLOW UP WITH HAI ARANGO IN ONE WEEK.
== END 2017-12-21 13:40 | disposition home health service (06) | DRG 193 ==
LOC: ER 14:23 → ICU 16:29 → MED/SURG 12-17 15:45
PROVIDERS: ADMIT Internal Medicine; ATTEND Internal Medicine
DX: M1A.9XX0 Chronic gout, unspecified, without tophus (tophi); R41.82 Altered mental status, unspecified; J96.22 Acute and chronic respiratory failure with hypercapnia; I50.9 Heart failure, unspecified; I95.89 Other hypotension; J44.1 Chronic obstructive pulmonary disease with (acute) exacerbation; J18.8 Other pneumonia, unspecified organism; R94.31 Abnormal electrocardiogram [ECG] [EKG]; R53.1 Weakness; R60.0 Localized edema; J90 Pleural effusion, not elsewhere classified; R07.89 Other chest pain
CPT/HCPCS: 36415; 36600; 70450; 71010; 71045; 80053; 81001; 82550; 82553; 82803; 83605; 83880; 84484; 85025; 87040; 87070; 87077; 87185; 87186; 87205; 93005; 93306; 94640; 94660; 96365; 96374; 97116; 97162; 97530; 99231; 99284; 99285; A4222; A4618; A7030; J0696; J1956; J3490; J7050; J7620; J7626; J7644

== ENCOUNTER 2018-01-27 09:30 | Observation (INO) ==
--- NOTE | 2018-01-27 10:06 | DR.FEVERAD ---
HPI - Time seen Time seen: 10:05 - PCP Primary Care Physician: HAI ARANGO - Complaints/Symptoms Chief Complaint Doctor Comments: Family states the patient has been running a fever with cough since this morning with patient being disorientated. states she was worried that he may have another UTI like before and brought him to the emergency room. states he has COPD and has had a bad cough with SOB and wheezing. He denies chest or abdominal pain, nausea or vomiting. States he was in the hospital with pneumonia two months ago and he took all of his antibiotics. States he has oxygen at home and is Trelegy inhaler and the Trelegy treatments at home. Patient denies hematuria, dejah or nocturia. states he has been having swelling left leg at times with chronic numbness since having problems with femoral cath. Patient denies headachhe or dizziness or any recent trauma. Chief Complaint:: CONFUSION, SHAKING, FEVER AND STARTED THIS MORNING - Nurses notes reviewed Nurses Notes Review: Yes - Source History Provided: Patient, Family Member - Mode of Arrival Mode of Arrival: Wheelchair - Timing Onset of Chief Complaint: 01/27/18 Came on: Gradually - Duration Duration: Constant How lon Duration: Hours - Severity Fever Severity/Quality: greater than 102 F - Context Recent: Treated Infection Symptoms: Fever, Cough, SOB History of: Chronic Illness - Modifying factors Modifying factors: Nothing - Associated signs and symptoms Associated signs and symptoms: Weakness, Confusion PMH - PMH Past Medical History: Yes Past Medical History: Hypertension, COPD, Gout, CHF Past Surgical History: Yes Surgical History: Angioplasty/Stents - Family History History of Family Medical Conditions: Yes Family Medical History: [place], Hypertension - Social History Does patient currently use any type of tobacco product: No Have you used tobacco products in the last 12 months: No Type of Tobacco Use: None Does any household member use tobacco: No Alcohol Use: None Do you use any recreational Drugs:: No Lives With: Family Lives Where: Home - infectious screening In the last 2 months have you had wt loss of >10#?: NO Have you had fever, night sweats or hemotysis?: No Have you traveled outside the country in the last 6 months?: No Isolation: Standard ROS - Review of Systems Constitutional: No Symptoms Reported, Fever, Weakness Eyes: No Symptoms Reported. negative: See HPI, Eye Pain, Blurred Vision, Tearing, Discharge, Photophobia, Diplopia, Other ENTM: No Symptoms Reported Respiratoy: No Symptoms Reported, Productive Cough, Short of Breath, Wheezing. negative: See HPI, Non-Productive Cough, Moist Cough, Dry Cough, Hacking Cough, Barking Cough, Brassy Cough, Orthopnea, Stridor, Hemoptysis, Other Cardiovascular: No Symptoms Reported, Edema (left leg) Gastrointestinal/Abdominal: No Symptoms Reported. negative: See HPI, Abdominal Pain, Constipation, Diarrhea, Nausea, Vomiting, Food Intolerance, Other Genitourinary: No Symptoms Reported Neurological: No Symptoms Reported, Weakness Musculoskeletal: No Symptoms Reported Integumentary: No Symptoms Reported. negative: See HPI, Change in Color, Change in Hair/Nails, Dryness, Lesions, Lumps, Rash, Itching, Wound, Bruises, Juandice, Other Hematologic/Lymphatic: No Symptoms Reported. negative: See HPI, Anemia, Blood Clots, Easy Bleeding, Easy Bruising, Swollen Glands, Lymphadenopathy, Other Endocrine: No Symptoms Reported Psychiatric: No Symptoms Reported. negative: See HPI, Anxiety, Depression, Hallucinations, Excessive crying, Suicidal, Other PE - General Limitations: No Limitations General Appearance: Alert, In Distress (moderate) - Head Head Exam: Normal Inspection, Atraumatic, Normocephalic - Eyes Eye exam: Normal Appearance, PERRL, EOMI. negative: Scleral Icterus, Conjunctival Injection, Nystagmus, Miosis, Mydrasis, Periorbital Swelling, Periorbital Tenderness, Other - ENT ENT Exam: Normal Exam, Normal Oropharynx, Normal External Ear Exam, Mucous Membranes Moist, TM's Normal Bilaterally External Ear Exam: Normal External Inspection TM/Canal Exam: Bilateral Normal Nose Exam: Normal Nose Exam Nasal Speculum Exam: Bilateral Normal Mouth Exam: Normal Inspection. negative: Drooling, Trismus, Lip Swelling, Tong ue Elevation, Tongue Swelling, Laceration, Other Teeth Exam: Normal Inspection (patient edentulous) Throat Exam: Normal Inspection. negative: Tonsillar Erythema, Tonsillomegaly, Tonsillar Exudate, R Peritonsillar Mass, L Peritonsillar Mass, Muffled Voice, Other - Neck Neck Exam: Normal Inspection, Full ROM, Trachea Midline. negative: Tenderness, Meningismus, Lymphadenopathy, Thyromegaly, Other - Respiratory Respiratory Exam: Normal Lung Sounds Bilat, Prolonged Expiratory Phase Respiratory Exam: Bilateral Wheezing, Bilateral Decreased Breath Sounds, Right Rales - Cardiovascular Cardiovascular Exam: Regular Rate, Normal Rhythm, Normal Heart Sounds, Systolic Murmur - Abdominal Exam Abdominal Exam: Normal Inspection, Normal Bowel Sounds, Soft. negative: Disten tion, Tenderness, Guarding, Rebound, Rigidity, Dimnished Bowel Sounds, Hyperactive Bowel Sounds, Hypoactive Bowel Sounds, Organomegaly, Trauma, Incision, Ascites, Mass, Bruit, Pulsatile Mass, Hernia, Other Abdominal Tenderness: negative: RUQ, RLQ, LUQ, LLQ, Epigastrium, Suprapubic, Diffuse, Mild, Moderate, Severe, Other - Extremities Extremities Exam: Normal Inspection, Full ROM, Normal Capillary Refill. negative: Tenderness, Edema, Joint Swelling, Calf Tenderness, Other - Back Back Exam: Normal Inspection, Full ROM. negative: Tenderness, (R) CVA Tenderness, (L) CVA Tenderness, Muscle Spasm, Paraspinal Tenderness, Vertebral Tenderness, Rashes, (R) Sciatic Notch Tenderness, (L) Sciatic Notch Tendern, (R) Straight Leg Raise, (L) Straight Leg Raise, Other - Neurologic Neurological Exam: Alert, Oriented X3, CN II-XII Intact, Reflexes Normal. negat aislinn: Normal Gait (gait not tested) - Psychiatric Psychiatric Exam: Normal Affect, Normal Mood. negative: Depressed, Agitated, Anxious, Flat Affect, Manic, Homicidal Ideation, Suicidal Ideation, Other - Skin Skin Exam: Warm, Dry, Intact, Normal Color Type of Lesion: negative: Rash, Abscess, Laceration, Foreign Body, Bite/Sting, Abrasion, Other Distribution: negative: Generalized, Involves Palms/Soles, Head, Face, Neck, Thorax, Chest, Back, Abdomen, Genitals, LUE, LLE, RUE, RLE, Other Description: negative: Size, Tenderness, Erythematous, Swelling, Macular, Papular, Vesicular, Blisters, Cofluent, Bullous, Petechial, Purpuric, Urticarial, Crusting, Discharge, Fluctuant, Indurated, Other - Vital Signs Vitals: Temperature 101.5 F Pulse Rate [Left Brachial] 112 Pulse Rate 113 Respiratory Rate 18 Blood Pressure [Right Arm] 166/75 Blood Pressure [Left Arm] 131/77 Blood Pressure 150/67 O2 Sat by Pulse Oximetry 96 Course - Reevaluation 1st: Improved - Consultation Called: :18 (Dr. Daly called) - Education/Counseling Education/Counseling: Patient, Family Educated On: Treatment, Diagnosis, Needs for Follow Up ROR - Labs Reviewed Laboratory Results Reviewed?: Yes (All labs and x-ray results reviewed and discussed with patient) Result Diagrams: 01/27/18 11:20 01/27/18 11:20 - XRAY XRAY Interpreted by: Radiologist (CXR: Interval resolution of right lower lobe pneumonia. Persistent chronic cardiac and pulmonary findings.) - EKG Rate: 111 [place]: Normal Rhythm: ST Block: None Hypertrophy: None ST: Nonsp - Labs Reviewed Laboratory: WBC 13.4 X10^3/uL (3.6-10.0) H 01/27/18 11:20 RBC 4.34 X10^6/uL (4.7-6.0) L 01/27/18 11:20 Hgb 12.4 g/dL (13.5-18.0) L 01/27/18 11:20 Hct 37.9 % (42.0-54.0) L 01/27/18 11:20 MCV 87.3 fL (80.0-100.0) 01/27/18 11:20 MCH 28.5 pg (27.0-34.0) 01/27/18 11:20 MCHC 32.6 g/dL (33.0-35.0) L 01/27/18 11:20 RDW 16.0 % (11.6-16.5) 01/27/18 11:20 Plt Count 233 X10^3/uL (150.0-450.0) 01/27/18 11:20 MPV 8.7 fL (7.4-11.0) 01/27/18 11:20 Neut % (Auto) 88.8 % (42.0-75.0) H 01/27/18 11:20 Lymph % (Auto) 4.2 % (21.0-51.0) L 01/27/18 11:20 [place] % (Auto) 6.3 % (0.0-13.0) 01/27/18 11:20 Eos % (Auto) 0.1 % (0.9-2.9) L 01/27/18 11:20 Baso % (Auto) 0.6 % (0.2-1.0) 01/27/18 11:20 Neut # (Auto) 11.9 x10^3/uL (2.2-4.8) H 01/27/18 11:20 Lymph # (Auto) 0.6 X10^3/uL (1.3-2.9) L 01/27/18 11:20 [place] # (Auto) 0.8 x10^3/uL (0.3-0.8) 01/27/18 11:20 Eos # (Auto) 0.0 x10^3/uL (0.0-0.2) 01/27/18 11:20 Baso # (Auto) 0.1 X10^3/uL (0.0-0.1) 01/27/18 11:20 Absolute Nucleated RBC 0.1 /100WBC 01/27/18 11:20 INR Target Range - 01/27/18 11:20 INR 1.03 (0.8-1.3) 01/27/18 11:20 APTT 27.5 SECONDS (22.9-36.5) 01/27/18 11:20 PTT Comment - 01/27/18 11:20 D-Dimer 3090 ng/mL (0-400) H* 01/27/18 11:20 Sodium 141 mmol/L (136-145) 01/27/18 11:20 Corrected Sodium TNP 01/27/18 11:20 Potassium 4.8 mmol/L (3.5-5.1) 01/27/18 11:20 Chloride 102 mmol/L (98-107) 01/27/18 11:20 Carbon Dioxide 32.0 mmol/L (21-32) 01/27/18 11:20 BUN 26 mg/dL (7-18) H 01/27/18 11:20 Creatinine 1.25 mg/dL (0.70-1.30) 01/27/18 11:20 Est GFR (MDRD) Af Amer > 60 (>60) 01/27/18 11:20 Est GFR (MDRD) Non-Af 59 (>60) 01/27/18 11:20 Glucose 108 mg/dL (65-99) H 01/27/18 11:20 Calcium 8.9 mg/dL (8.5-10.1) 01/27/18 11:20 Corrected Calcium TNP 01/27/18 11:20 Magnesium 1.7 mg/dL (1.7-2.9) 01/27/18 11:20 Total Bilirubin 0.50 mg/dL (0.2-1.0) 01/27/18 11:20 AST 24 Units/L (15-37) 01/27/18 11:20 ALT 19 Units/L (12-78) 01/27/18 11:20 Alkaline Phosphatase 72 Units/L (46-116) 01/27/18 11:20 Creatine Kinase 220 Units/L (39-308) 01/27/18 11:20 CK-MB (CK-2) 1.1 ng/mL (0-4.0) 01/27/18 11:20 CK/CKMB % Calc 0.5 % (<4) 01/27/18 11:20 Troponin I < 0.02 ng/mL (0-1.5) 01/27/18 11:20 Total Protein 8.3 g/dL (6.4-8.2) H 01/27/18 11:20 Albumin 3.7 g/dL (3.4-5.0) 01/27/18 11:20 Globulin 4.6 g/dL (2.5-4.5) H 01/27/18 11:20 Albumin/Globulin Ratio 0.8 Ratio (1.1-2.1) L 01/27/18 11:20 Specimen Type Clean catch urine 01/27/18 11:07 Urine Color Yellow (YELLOW) 01/27/18 11:07 Urine Appearance Clear (CLEAR) 01/27/18 11:07 Urine pH 7.0 (5.0 - 8.0) 01/27/18 11:07 Ur Specific [place] 1.010 (1.000-1.030) 01/27/18 11:07 Urine Protein 3+ (NEGATIVE) 01/27/18 11:07 Urine Glucose (UA) Negative (NEGATIVE) 01/27/18 11:07 Urine Ketones Negative (NEGATIVE) 01/27/18 11:07 Urine Occult Blood 2+ (NEGATIVE) 01/27/18 11:07 Urine Nitrite Negative (NEGATIVE) 01/27/18 11:07 Urine Bilirubin Negative (NEGATIVE) 01/27/18 11:07 Urine Urobilinogen Normal (NORMAL) 01/27/18 11:07 Ur Leukocyte Esterase Negative (NEGATIVE) 01/27/18 11:07 Urine RBC 3-5 /HPF (NONE SEEN) 01/27/18 11:07 Urine WBC 0-2 /HPF (NONE SEEN) 01/27/18 11:07 Ur Squamous Epith Cells Rare /HPF (NEGATIVE) 01/27/18 11:07 Urine Bacteria Negative /HPF (NEGATIVE) 01/27/18 11:07 Ur Culture Indicated? No/not indicated 01/27/18 11:07 - Diagnosis Discharge Problem: COPD exacerbation, Abnormal laboratory test, Interstitial pulmonary disease, Systemic inflammatory response syndrome (SIRS) Bronchitis, acute Qualifiers: Bronchitis organism: other organism Qualified Code(s): J20.8 - Acute bronchitis due to other specified organisms Hematuria Qualifiers: Hematuria type: unspecified type Qualified Code(s): R31.9 - Hematuria, unspecified - Discharge Plan Disposition: 09 ADMITTED INPATIENT Condition: Stable - Follow ups/Referrals Follow ups/Referrals: HAI ARANGO [Primary Care Provider] - 3 days - Instructions
[2018-01-27] MEDS ORDERED: DUONEB 0.5 MG/3 MG NEB ONE (10:15)
[2018-01-27] MEDS ORDERED: SOLU-Medrol 125 MG VIAL IVP ONE (10:15)
[2018-01-27] MEDS ORDERED: ROCEPHIN VIAL 1 GRAM IVP ONE (10:15)
[2018-01-27] MEDS ORDERED: TYLENOL 325 MG TAB PO STA (10:17)
[2018-01-27] MEDS ORDERED: SOLU-Medrol 125 MG VIAL ONE (10:24)
[2018-01-27] MEDS ORDERED: TYLENOL 325 MG TAB PO ONE (10:25)
[2018-01-27] MEDS ORDERED: ROCEPHIN VIAL 1 GRAM ONE (10:26)
--- NOTE | 2018-01-27 10:42 | RAD ---
Examination: Chest, PA and lateral views History: Fever and confusion Comparison 12/21/2017 Findings: The previously reported right lower lobe infiltrate has largely resolved. However there is a diffuse bilateral interstitial prominence still present which may be largely chronic. Heart size is normal with sternal wires and aortic valve prosthesis. Mild pulmonary hyperaeration with low diaphragm may indicate underlying emphysema. Impression: Interval resolution of right lower lobe pneumonia. Persistent chronic cardiac, and pulmonary findings as noted. Reported By:
[2018-01-27] MEDS ORDERED: DUONEB 0.5 MG/3 MG ONE (11:06)
[2018-01-27 11:23] LABS: BILIRUBIN,URINE NEGATIVE (NEGATIVE); BLOOD/HEMOGLOBIN,URINE 2+ (NEGATIVE); GLUCOSE, URINE NEGATIVE (NEGATIVE); KETONES,URINE NEGATIVE (NEGATIVE); LEUKOCYTE ESTERASE ,URINE NEGATIVE (NEGATIVE); NITRITES,URINE NEGATIVE (NEGATIVE); PROTEIN,URINE 3+ (NEGATIVE); UROBILINOGEN,URINE NORMAL (NORMAL)
[2018-01-27] MEDS: NS 1000 ML 1,000 ML IV SCH (11:23)
[2018-01-27] MEDS: LEVAQUIN PREMIX IV 750 MG 750 MG/150 ML BAG IV SCH (11:24)
[2018-01-27 11:33] LABS: APPEARANCE,URINE CLEAR (CLEAR); BACTERIA,URINE NEGATIVE /HPF (NEGATIVE); COLOR,URINE YELLOW (YELLOW); SQUAMOUS EPITHELIAL CELL,UR RARE /HPF (NEGATIVE)
[2018-01-27 11:37] LABS: BASOPHILS # (AUTO) 0.1 X10^3/uL (0.0-0.1); BASOPHILS % (AUTO) 0.6 % (0.2-1.0); EOSINOPHILS % (AUTO) 0.1 % (0.9-2.9); HEMATOCRIT 37.9 % (42.0-54.0); HEMOGLOBIN 12.4 g/dL (13.5-18.0); LYMPHOCYTES # (AUTO) 0.6 X10^3/uL (1.3-2.9); LYMPHOCYTES % (AUTO) 4.2 % (21.0-51.0); MEAN CORPUSCULAR HEMOGLOBIN 28.5 pg (27.0-34.0); MEAN CORPUSCULAR HGB CONC 32.6 g/dL (33.0-35.0); MEAN CORPUSCULAR VOLUME 87.3 fL (80.0-100.0); MEAN PLATELET VOLUME 8.7 fL (7.4-11.0); MONOCYTES # (AUTO) 0.8 x10^3/uL (0.3-0.8); MONOCYTES % (AUTO) 6.3 % (0.0-13.0); NEUTROPHILS # (AUTO) 11.9 x10^3/uL (2.2-4.8); NEUTROPHILS % (AUTO) 88.8 % (42.0-75.0); PLATELET COUNT 233 X10^3/uL (150.0-450.0); RED BLOOD COUNT 4.34 X10^6/uL (4.7-6.0); WHITE BLOOD COUNT 13.4 X10^3/uL (3.6-10.0)
[2018-01-27] MEDS ORDERED: SALINE 3% 15 ML NEB TX ONE (11:39)
[2018-01-27] MEDS ORDERED: SALINE 3% 15 ML NEB TX NEB ONE (11:40)
[2018-01-27 11:59] LABS: BLOOD UREA NITROGEN 26 mg/dL (7-18); CALCIUM 8.9 mg/dL (8.5-10.1); CHLORIDE 102 mmol/L (98-107); CREATININE 1.25 mg/dL (0.70-1.30); SODIUM 141 mmol/L (136-145); TROPONIN I < 0.02 ng/mL (0-1.5); eGFR NON BLACK RACES 59 (>60)
[2018-01-27 12:01] LABS: ALANINE AMINOTRANSFERASE 19 Units/L (12-78); ALBUMIN 3.7 g/dL (3.4-5.0); ALKALINE PHOSPHATASE 72 Units/L (46-116); ASPARTATE AMINO TRANSFERASE 24 Units/L (15-37); CKMB % 0.5 % (<4); CREATINE KINASE 220 Units/L (39-308); CREATINE KINASE MB 1.1 ng/mL (0-4.0); MAGNESIUM 1.7 mg/dL (1.7-2.9); TOTAL PROTEIN 8.3 g/dL (6.4-8.2)
[2018-01-27] MEDS ORDERED: LOVENOX INJ 80 MG SYR SC STA (13:00)
[2018-01-27] MEDS: XOPENEX 1.25 MG/3 ML NEBULE NEB SCH ×2 (17:09→20:28)
[2018-01-27] MEDS: PULMICORT NEB TX 0.5 MG NEB SCH (20:28)
[2018-01-28] MEDS: NS 1000 ML 1,000 ML IV SCH ×2 (01:12→16:04)
[2018-01-28] MEDS: XOPENEX 1.25 MG/3 ML NEBULE NEB SCH ×4 (09:20→21:21)
[2018-01-28] MEDS: PULMICORT NEB TX 0.5 MG NEB SCH ×2 (09:20→21:21)
[2018-01-28] MEDS: LEVAQUIN PREMIX IV 750 MG 750 MG/150 ML BAG IV SCH (09:50)
[2018-01-28 14:31] VITALS: BMI 27.2
[2018-01-28] MEDS: LOPRESSOR TAB 50 MG PO SCH ×2 (16:03→20:46)
[2018-01-28] MEDS: KLONOPIN TAB 0.5 MG PO SCH (20:45)
[2018-01-28] MEDS: SOLU-Medrol 40 MG VIAL IVP SCH (21:12)
[2018-01-28] MEDS: BROVANA IN SCH (21:20)
[2018-01-29] MEDS: SOLU-Medrol 40 MG VIAL IVP SCH ×2 (05:18→13:19)
[2018-01-29] MEDS: NS 1000 ML 1,000 ML IV SCH (05:18)
[2018-01-29 05:46] LABS: ALANINE AMINOTRANSFERASE 17 Units/L (12-78); ALBUMIN 2.6 g/dL (3.4-5.0); ALKALINE PHOSPHATASE 50 Units/L (46-116); ASPARTATE AMINO TRANSFERASE 28 Units/L (15-37); BLOOD UREA NITROGEN 27 mg/dL (7-18); CALCIUM 7.6 mg/dL (8.5-10.1); CARBON DIOXIDE 26.7 mmol/L (21-32); CHLORIDE 107 mmol/L (98-107); COR CA(FOR HYPOALB) 8.7 mg/dL (8.5-10.1); COR NA(FOR HYPERGLY) 142 mmol/L (136-145); CREATININE 1.11 mg/dL (0.70-1.30); SODIUM 141 mmol/L (136-145); TOTAL PROTEIN 6.9 g/dL (6.4-8.2); eGFR NON BLACK RACES > 60 (>60)
[2018-01-29 06:37] LABS: BASOPHILS % (AUTO) 0.3 % (0.2-1.0); HEMATOCRIT 33.4 % (42.0-54.0); HEMOGLOBIN 10.7 g/dL (13.5-18.0); LYMPHOCYTES # (AUTO) 0.7 X10^3/uL (1.3-2.9); LYMPHOCYTES % (AUTO) 5.7 % (21.0-51.0); MEAN CORPUSCULAR HEMOGLOBIN 28.1 pg (27.0-34.0); MEAN CORPUSCULAR VOLUME 87.8 fL (80.0-100.0); MEAN PLATELET VOLUME 9.1 fL (7.4-11.0); MONOCYTES # (AUTO) 0.2 x10^3/uL (0.3-0.8); MONOCYTES % (AUTO) 1.9 % (0.0-13.0); NEUTROPHILS % (AUTO) 92.1 % (42.0-75.0); PLATELET COUNT 213 X10^3/uL (150.0-450.0); RED BLOOD COUNT 3.81 X10^6/uL (4.7-6.0); RED CELL DISTRIBUTION WIDTH 15.9 % (11.6-16.5)
--- NOTE | 2018-01-29 06:51 | RAD ---
HISTORY: Cough, follow-up pneumonia Study: Chest AP portable Comparison: 01/27/2018, 12/21/2017 Findings: The patient is status post median sternotomy. The heart is within normal limits in size. The olivia are normal. The lungs are free of acute alveolar infiltrates. Interstitial lung changes of a chronic nature are present bilaterally slightly more prominent in the right lower lobe than the left. No pleural effusions are identified. The bony thorax is unremarkable. IMPRESSION: Right lower lobe infiltrate resolved Interstitial lung changes in the lower lobes bilaterally right greater than left, chronic Reported By:
[2018-01-29 07:00] LABS: PLATELET MORPHOLOGY COMMENT NORMAL (NORMAL)
[2018-01-29] MEDS: LOPRESSOR TAB 50 MG PO SCH ×2 (08:40→20:27)
[2018-01-29] MEDS: LEVAQUIN PREMIX IV 750 MG 750 MG/150 ML BAG IV SCH (08:40)
[2018-01-29] MEDS: LASIX PO SCH (08:40)
[2018-01-29] MEDS: COZAAR PO SCH (08:40)
[2018-01-29] MEDS: ZYLOPRIM PO SCH (08:40)
[2018-01-29] MEDS: BROVANA IN SCH ×2 (09:00→20:54)
[2018-01-29] MEDS: XOPENEX 1.25 MG/3 ML NEBULE NEB SCH ×4 (09:00→20:54)
[2018-01-29] MEDS: PULMICORT NEB TX 0.5 MG NEB SCH ×2 (09:00→20:54)
--- NOTE | 2018-01-29 09:43 | DR.H&P ---
H&P - History & Physical for Day of: H&P Date: 01/27/18 - Chief Complaint Chief Complaint: sob, ccc - History of Present Illness History of Present Illness: 77 [facility] ER ADMISSION AFTER PRENEINT WITH CO CCC, WHEEZING AND SOB. PT HAS HX OF COPD. PT STATES HE HAS TAKEN ANTITUSSIVES USED JET NEBS WITHOUT IMPROVEMENT. PT CXR ON ADMISSION WITH RLL PNEUMONIA. PT ADMITTED FOR TREATMENT OF ACUTE RESPIRATORY ILLNESS. PT STARTED ON IV ATBX, SPUTUM CULTURES ORDERED, RESP THERAPY. - Past Medical History Past Medical History: Hypertension, COPD, Gout, CHF - Past Surgical History Surgical History: CABG/Valve Surgery, Ortho Surgery, Tonsillectomy - Family History Family Medical History: Diabetes Mellitus, [place] - Social History Does patient currently use any type of tobacco product: No Have you used tobacco products in the last 12 months: No Type of Tobacco Use: Cigarettes How many years tobacco product used: 55 Does any household member use tobacco: No Alcohol Use: None Drug Use: None - Medications Home Medications: No Known Drug Allergies Allergy (Verified 12/14/17 14:27) CONTINUE taking the following medications levalbuterol HCl [Xopenex] 1.25 mg INHALATION BID 01/27/18 [History] - Review of Systems Constitutional: Weakness Eyes: No Symptoms Reported ENT: No Symptoms Reported Respiratory: Shortness of Breath, SOB with Excertion, Sputum, Wheezing Cardiovascular: No Symptoms Reported Gastrointestinal: Nausea Genitourinary: No Symptoms Reported Musculoskeletal: Back Pain Skin: No Symptoms Reported Neurological: No Symptoms Reported - Physical Exam Vital Signs: Temperature 98.5 F Pulse Rate [Left Brachial] 64 Pulse Rate 84 Respiratory Rate 20 Blood Pressure [Right Arm] 131/63 Blood Pressure [Left Arm] 127/60 Blood Pressure 150/67 O2 Sat by Pulse Oximetry 97 Oriented: Normal Eyes: Normal Ear: Normal Nose: Normal Throat: Normal Respiratory: Diminished Throughout Cardiovascular: Normal, Edema (BILATERAL TRACE EDEMA) : Normal Auscultation: Bowel Sounds: Normal Palpation: Normal Tenderness: Normal Skin: Normal Musculoskeletal: Back:Thoracic, Back:Lumbar Psychiatric: Anxiety Affect: Anxious Speech Pattern: Clear, Appropriate - Assessment/Plan (1) Pneumonia Qualifiers: Status: Acute Plan: ADMIT, PNEUMONIA PROTOCOL. IV ATBX, RESP CONSULT SPUTUM CULTURE. IV SOLU MEDROL, SUPPLEMENTAL O2. VERIFY HOME MEDS, BP CONTROL. REPEAT AM LABS AND CXR (2) Hypertension Qualifiers: Status: Acute (3) COPD (chronic obstructive pulmonary disease) Qualifiers: Status: Chronic - Allergies Allergies/Adverse Reactions: Allergies Allergy/AdvReac Type Severity Reaction Status Date / Time No Known Drug Allergies Allergy Verified 12/14/17 14:27
[2018-01-29] MEDS ORDERED: NS 1000 ML 1,000 ML IV SCH (12:20)
[2018-01-29] MEDS ORDERED: LIBRIUM PO PRN (14:44)
[2018-01-29 18:03] LABS: BILIRUBIN,URINE NEGATIVE (NEGATIVE); BLOOD/HEMOGLOBIN,URINE 1+ (NEGATIVE); GLUCOSE, URINE NEGATIVE (NEGATIVE); KETONES,URINE NEGATIVE (NEGATIVE); LEUKOCYTE ESTERASE ,URINE NEGATIVE (NEGATIVE); NITRITES,URINE NEGATIVE (NEGATIVE); PROTEIN,URINE 1+ (NEGATIVE); UROBILINOGEN,URINE NORMAL (NORMAL)
[2018-01-29 18:10] LABS: AMORPHOUS SEDIMENT,UR TRACE /HPF (NEGATIVE); APPEARANCE,URINE CLEAR (CLEAR); BACTERIA,URINE TRACE /HPF (NEGATIVE); COLOR,URINE YELLOW (YELLOW); RBC,URINE NONE SEEN /HPF (NONE SEEN); SQUAMOUS EPITHELIAL CELL,UR NEGATIVE /HPF (NEGATIVE)
[2018-01-29] MEDS: KLONOPIN TAB 0.5 MG PO SCH (20:27)
[2018-01-29] MEDS: LOVENOX INJ 40 MG SYR SC SCH (20:31)
[2018-01-30 06:19] LABS: BASOPHILS % (AUTO) 0.1 % (0.2-1.0); EOSINOPHILS % (AUTO) 0.1 % (0.9-2.9); HEMATOCRIT 33.1 % (42.0-54.0); HEMOGLOBIN 10.9 g/dL (13.5-18.0); LYMPHOCYTES # (AUTO) 1.5 X10^3/uL (1.3-2.9); LYMPHOCYTES % (AUTO) 13.7 % (21.0-51.0); MEAN CORPUSCULAR HEMOGLOBIN 28.7 pg (27.0-34.0); MEAN CORPUSCULAR HGB CONC 32.9 g/dL (33.0-35.0); MEAN CORPUSCULAR VOLUME 87.4 fL (80.0-100.0); MEAN PLATELET VOLUME 8.5 fL (7.4-11.0); MONOCYTES # (AUTO) 0.7 x10^3/uL (0.3-0.8); MONOCYTES % (AUTO) 6.9 % (0.0-13.0); NEUTROPHILS # (AUTO) 8.4 x10^3/uL (2.2-4.8); NEUTROPHILS % (AUTO) 79.2 % (42.0-75.0); PLATELET COUNT 234 X10^3/uL (150.0-450.0); RED BLOOD COUNT 3.78 X10^6/uL (4.7-6.0); RED CELL DISTRIBUTION WIDTH 16.1 % (11.6-16.5); WHITE BLOOD COUNT 10.6 X10^3/uL (3.6-10.0)
[2018-01-30 06:43] LABS: ALANINE AMINOTRANSFERASE 18 Units/L (12-78); ALBUMIN 2.6 g/dL (3.4-5.0); ALKALINE PHOSPHATASE 47 Units/L (46-116); ASPARTATE AMINO TRANSFERASE 24 Units/L (15-37); BLOOD UREA NITROGEN 26 mg/dL (7-18); CALCIUM 7.8 mg/dL (8.5-10.1); CHLORIDE 106 mmol/L (98-107); COR CA(FOR HYPOALB) 8.9 mg/dL (8.5-10.1); SODIUM 142 mmol/L (136-145); TOTAL PROTEIN 6.8 g/dL (6.4-8.2); eGFR NON BLACK RACES > 60 (>60)
[2018-01-30 08:33] VITALS: BP 143/97
[2018-01-30] MEDS: PULMICORT NEB TX 0.5 MG NEB SCH (08:52)
[2018-01-30] MEDS: BROVANA IN SCH (08:52)
[2018-01-30] MEDS: XOPENEX 1.25 MG/3 ML NEBULE NEB SCH (08:52)
[2018-01-30] MEDS: COZAAR PO SCH (10:51)
[2018-01-30] MEDS: ZYLOPRIM PO SCH (10:51)
[2018-01-30] MEDS: LOVENOX INJ 40 MG SYR SC SCH (10:52)
[2018-01-30] MEDS: LASIX PO SCH (10:53)
[2018-01-30] MEDS: LOPRESSOR TAB 50 MG PO SCH (10:53)
[2018-01-30] MEDS: LEVAQUIN PREMIX IV 750 MG 750 MG/150 ML BAG IV SCH (10:56)
--- NOTE | 2018-01-30 13:35 | PCM.PROG ---
Progress Note - Progress Note for Day of Date of Exam: 01/29/18 - Subjective Subjective: 77 [facility] ER ADMISSION WITH COPD EXACERBATION AND PNEUMONIA. PT HAS BEEN ON IV ATBX, LEVAQUIN AND RESP THERAPY. PT RECEIVED IV SOLU MEDROL AND BLOOD AND SPUTUM CULTURES COLLECTED ON ADMISSION. PT REPORTS SOB MUCH IMPROVED. PT CONTINUES WITH DIFFUSE EXP WHEEZES BUT REPORTS HE THINKS HES READY TO GO HOME. LABS REPORTS BC HAS GROWTH WITH ID PENDING. PLAN TO CONTINUE IV ATBX, REPEAT AM LABS. - Past Medical Family Social History Past Med/Fam/Surg Hx: No changes since H&P Allergies: Allergies No Known Drug Allergies Allergy (Verified 12/14/17 14:27) - Review of Systems ROS: No change since H&P - Vital Signs and I&O's Vital Signs: Temperature 98.1 F Pulse Rate [Left Brachial] 80 Pulse Rate 74 Respiratory Rate 20 Blood Pressure [Right Arm] 143/97 Blood Pressure [Left Arm] 155/60 Blood Pressure 150/67 O2 Sat by Pulse Oximetry 98 Intake and Output: Intake & Output 01/28/18 01/29/18 01/30/18 01/31/18 11:59 11:59 11:59 11:59 Intake Total 2950 / 2950 1080 / 1080 Balance 2950 / 2950 1080 / 1080 - Physical Exam Oriented: Normal Eyes: Normal Ear: Normal Nose: Normal Throat: Normal Respiratory: Diminished, Wheezes Cardiovascular: Normal, Edema (BILATERAL TRACE EDEMA) : Normal Auscultation: Bowel Sounds: Normal Tenderness: Normal Skin: Normal Musculoskeletal: Back:Thoracic, Back:Lumbar Psychiatric: Anxiety Affect: Anxious Speech Pattern: Clear, Appropriate - Laboratory and Diagnostics Result Diagrams: 01/30/18 05:50 01/30/18 05:50 Labs: 01/27/18 11:20 Blood Blood Culture - Final Enterococcus Faecalis 01/27/18 12:02 Sputum - Expectorated Sputum Sputum Culture - Final 01/27/18 12:02 Sputum - Expectorated Sputum - Final Laboratory WBC 10.6 X10^3/uL (3.6-10.0) H 01/30/18 05:50 RBC 3.78 X10^6/uL (4.7-6.0) L 01/30/18 05:50 Hgb 10.9 g/dL (13.5-18.0) L 01/30/18 05:50 Hct 33.1 % (42.0-54.0) L 01/30/18 05:50 MCV 87.4 fL (80.0-100.0) 01/30/18 05:50 MCH 28.7 pg (27.0-34.0) 01/30/18 05:50 MCHC 32.9 g/dL (33.0-35.0) L 01/30/18 05:50 RDW 16.1 % (11.6-16.5) 01/30/18 05:50 Plt Count 234 X10^3/uL (150.0-450.0) 01/30/18 05:50 Plt Count Comment Adequate (ADEQUATE) 01/29/18 05:20 MPV 8.5 fL (7.4-11.0) 01/30/18 05:50 Neut % (Auto) 79.2 % (42.0-75.0) H 01/30/18 05:50 Lymph % (Auto) 13.7 % (21.0-51.0) L 01/30/18 05:50 [place] % (Auto) 6.9 % (0.0-13.0) 01/30/18 05:50 Eos % (Auto) 0.1 % (0.9-2.9) L 01/30/18 05:50 Baso % (Auto) 0.1 % (0.2-1.0) L 01/30/18 05:50 Neut # (Auto) 8.4 x10^3/uL (2.2-4.8) H 01/30/18 05:50 Lymph # (Auto) 1.5 X10^3/uL (1.3-2.9) 01/30/18 05:50 [place] # (Auto) 0.7 x10^3/uL (0.3-0.8) 01/30/18 05:50 Eos # (Auto) 0.0 x10^3/uL (0.0-0.2) 01/30/18 05:50 Baso # (Auto) 0.0 X10^3/uL (0.0-0.1) 01/30/18 05:50 Absolute Nucleated RBC 0.0 /100WBC 01/30/18 05:50 Total Counted 100 01/29/18 05:20 Neutrophils % (Manual) 92 % (39-76) H 01/29/18 05:20 Lymphocytes % (Manual) 8 % (13-43) L 01/29/18 05:20 Monocytes % (Manual) 2 % (4-9) L 01/29/18 05:20 Plt Morphology Comment Normal (NORMAL) 01/29/18 05:20 RBC Morphology Normal (NORMAL) 01/29/18 05:20 INR Target Range - 01/27/18 11:20 INR 1.03 (0.8-1.3) 01/27/18 11:20 APTT 27.5 SECONDS (22.9-36.5) 01/27/18 11:20 PTT Comment - 01/27/18 11:20 D-Dimer 3090 ng/mL (0-400) H* 01/27/18 11:20 Sodium 142 mmol/L (136-145) 01/30/18 05:50 Corrected Sodium TNP 01/30/18 05:50 Potassium 3.7 mmol/L (3.5-5.1) 01/30/18 05:50 Chloride 106 mmol/L (98-107) 01/30/18 05:50 Carbon Dioxide 32.0 mmol/L (21-32) 01/30/18 05:50 BUN 26 mg/dL (7-18) H 01/30/18 05:50 Creatinine 1.10 mg/dL (0.70-1.30) 01/30/18 05:50 Est GFR (MDRD) Af Amer > 60 (>60) 01/30/18 05:50 Est GFR (MDRD) Non-Af > 60 (>60) 01/30/18 05:50 Glucose 98 mg/dL (65-99) 01/30/18 05:50 Lactic Acid 1.7 mmol/L (0.4-2.0) 01/27/18 13:40 Calcium 7.8 mg/dL (8.5-10.1) L 01/30/18 05:50 Corrected Calcium 8.9 mg/dL (8.5-10.1) 01/30/18 05:50 Magnesium 1.7 mg/dL (1.7-2.9) 01/27/18 11:20 Total Bilirubin 0.20 mg/dL (0.2-1.0) 01/30/18 05:50 AST 24 Units/L (15-37) 01/30/18 05:50 ALT 18 Units/L (12-78) 01/30/18 05:50 Alkaline Phosphatase 47 Units/L (46-116) 01/30/18 05:50 Creatine Kinase 220 Units/L (39-308) 01/27/18 11:20 CK-MB (CK-2) 1.1 ng/mL (0-4.0) 01/27/18 11:20 CK/CKMB % Calc 0.5 % (<4) 01/27/18 11:20 Troponin I < 0.02 ng/mL (0-1.5) 01/27/18 11:20 Total Protein 6.8 g/dL (6.4-8.2) 01/30/18 05:50 Albumin 2.6 g/dL (3.4-5.0) L 01/30/18 05:50 Globulin 4.2 g/dL (2.5-4.5) 01/30/18 05:50 Albumin/Globulin Ratio 0.6 Ratio (1.1-2.1) L 01/30/18 05:50 Specimen Type Clean catch urine 01/29/18 17:47 Urine Color Yellow (YELLOW) 01/29/18 17:47 Urine Appearance Clear (CLEAR) 01/29/18 17:47 Urine pH 5.0 (5.0 - 8.0) 01/29/18 17:47 Ur Specific [place] 1.010 (1.000-1.030) 01/29/18 17:47 Urine Protein 1+ (NEGATIVE) 01/29/18 17:47 Urine Glucose (UA) Negative (NEGATIVE) 01/29/18 17:47 Urine Ketones Negative (NEGATIVE) 01/29/18 17:47 Urine Occult Blood 1+ (NEGATIVE) 01/29/18 17:47 Urine Nitrite Negative (NEGATIVE) 01/29/18 17:47 Urine Bilirubin Negative (NEGATIVE) 01/29/18 17:47 Urine Urobilinogen Normal (NORMAL) 01/29/18 17:47 Ur Leukocyte Esterase Negative (NEGATIVE) 01/29/18 17:47 Urine RBC None seen /HPF (NONE SEEN) 01/29/18 17:47 Urine WBC None seen /HPF (NONE SEEN) 01/29/18 17:47 Ur Squamous Epith Cells Negative /HPF (NEGATIVE) 01/29/18 17:47 Amorphous Sediment Trace /HPF (NEGATIVE) 01/29/18 17:47 Urine Bacteria Trace /HPF (NEGATIVE) 01/29/18 17:47 Ur Culture Indicated? No/not indicated 01/29/18 17:47 - Plan (1) Pneumonia Status: Acute Qualifiers: Plan: PNEUMONIA PROTOCOL. IV ATBX, RESP CONSULT SPUTUM CULTURE COLLECTED ON ADMISSION. IV SOLU MEDROL, SUPPLEMENTAL O2. BP CONTROL. REPEAT AM LABS AND CXR (2) Hypertension Status: Acute Qualifiers: (3) COPD (chronic obstructive pulmonary disease) Status: Chronic Qualifiers: (4) Positive blood culture Status: Acute Plan: ID PENDING, CONTINUE IV LEVAQUIN. REPEAT AM LABS, REPEAT BC X2 ORDERED THIS AM
== END 2018-01-30 13:05 | disposition home or self-care (01) ==
LOC: ER 09:37 → MED/SURG 09:37
PROVIDERS: ADMIT Internal Medicine; ATTEND Internal Medicine
DX: R60.0 Localized edema; Z79.899 Other long term (current) drug therapy; R31.9 Hematuria, unspecified; J84.89 Other specified interstitial pulmonary diseases; F41.8 Other specified anxiety disorders; J18.8 Other pneumonia, unspecified organism; R68.89 Other general symptoms and signs; R06.02 Shortness of breath; J44.1 Chronic obstructive pulmonary disease with (acute) exacerbation; R26.89 Other abnormalities of gait and mobility; I10 Essential (primary) hypertension; R65.10 Systemic inflammatory response syndrome (SIRS) of non-infectious origin without acute organ dysfunction; J20.8 Acute bronchitis due to other specified organisms; Z79.01 Long term (current) use of anticoagulants; B95.2 Enterococcus as the cause of diseases classified elsewhere
CPT/HCPCS: 36415; 71010; 71020; 71045; 71046; 80053; 81001; 82550; 82553; 83605; 83735; 84484; 85025; 85378; 85610; 85730; 87040; 87070; 87077; 87186; 87205; 93005; 93010; 94640; 94669; 94760; 96365; 96367; 96374; 96375; 97161; 97165; 99218; 99284; A4222; G0378; J0696; J1650; J1956; J2920; J2930; J3490; J7030; J7620; J7626

== ENCOUNTER 2018-02-02 05:26 | Inpatient (IN) ==
[2018-02-02] MEDS ORDERED: PEPCID 20 MG IV PREMIX* 20 MG/50 ML BAG IV ONE ×2 (05:50→05:54)
[2018-02-02] MEDS ORDERED: ASPIRIN 81 MG CHEWTAB PO ONE (05:50)
--- NOTE | 2018-02-02 05:51 | DR.CP ---
HPI Time Seen Time Seen by Provider: 02/02/18 05:39 Source History Provided: Patient and Family Member Mode of Arrival Mode of Arrival: Ambulatory Timing Came on: Suddenly Pain: Present Now Duration Duration: Constant Duration: Hours Location Location of Chest Pain: Left and Chest Chest Pain Radiation Location: None Context Onset: While Asleep Cardiac Risk Factors: HTN PE Risk Factors: None History of: Valve Disease and Aspirin in last 24 hours Prehospital Care: Oxygen and ASA Quality Quality: Pleuritic Severity Severity: Moderate Modifying Factors Worsens: Exertion, Coughing and Movement Impoves: Rest Associated Signs and Symptoms Associated Signs and Symptoms: Shortness of Breath and Abdominal Pain PMH PMH Past Medical History: CHF, COPD, Gout and Hypertension Surgical History: CABG/Valve Surgery, Ortho Surgery and Tonsillectomy Family History Family Medical History: Diabetes Mellitus and ID Social History Do you use any recreational Drugs:: No ROS Review of Systems Constitutional: Fever, Fatigue and Loss of Appetite Eyes: No Symptoms Reported ENTM: No Symptoms Reported Respiratoy: Non-Productive Cough, Orthopnea, Short of Breath and Wheezing Cardiovascular: Chest Pain Gastrointestinal/Abdominal: Abdominal Pain Genitourinary: No Symptoms Reported Neurological: Headache, Weakness and Dizziness Musculoskeletal: Muscle Pain Integumentary: No Symptoms Reported Hematologic/Lymphatic: Easy Bleeding and Easy Bruising Endocrine: No Symptoms Reported Psychiatric: No Symptoms Reported All Other Systems: Reviewed and Negative PE Vitals Vitals: Temperature 99.5 F Pulse Rate [Left Brachial] 78 Pulse Rate 91 Respiratory Rate 21 Blood Pressure [Right Arm] 182/76 Blood Pressure [Left Arm] 195/86 Blood Pressure 159/71 O2 Sat by Pulse Oximetry 98 General Limitations: No Limitations General Appearance: Alert and In Distress Head Head Exam: Normal Inspection, Atraumatic and Normocephalic Eyes Eye exam: PERRL and EOMI; negative Scleral Icterus and Conjunctival Injection ENT ENT Exam: Normal Oropharynx, Normal External Ear Exam and TM's Normal Bilaterally Respiratory Respiratory Exam: Accessory Muscle Use and Respiratory Distress Respiratory Exam: Bilateral: Wheezing, Bilateral: Rales and Bilateral: Rhonchi, Upper: Wheezing and Upper: Rhonchi and Lower: Wheezing, Lower: Rales and Lower: Rhonchi Cardiovascular Cardiovascular Exam: Regular Rate and Normal Rhythm Pulse: Radial and Femoral Edema: 1 Abdominal Exam Abdominal Exam: Normal Bowel Sounds, Soft and Tenderness Abdominal Tenderness: RUQ, LUQ and Epigastrium Extremities Extremities Exam: Edema; negative Tenderness Back Back Exam: Tenderness Neurologic Neurological Exam: Alert, Oriented X3 and CN II-XII Intact; negative Motor Sensory Deficit Psychiatric Psychiatric Exam: Normal Affect and Normal Mood Skin Skin Exam: Warm and Dry MDM Additional Information Additional Information Obtained From: Family Differential Diagnosis Differential Diagnosis: Angina, Chest Wall Pain, CHF, Esophageal Reflux/Spasm, Gastritis, Myocardial Infarction, Pericarditis, Pleuritis, Pneumonia, Pneumothorax and Pulmonary Embolus COURSE Treatment Treatment: SEE ORDERS. ASA PO IN ED. Consultation Consultation Comments: DISCUSS PATIENT WITH DR. MAGANA. HE WILL ADMIT PATIENT. Education/Counseling Education/Counseling: Patient and Family Educated On: Diagnosis ROR Labs Reviewed Laboratory Results Reviewed?: Yes Result Diagrams: 02/02/18 15:52 02/02/18 06:18 Laboratory: WBC 15.5 X10^3/uL (3.6-10.0) H 02/02/18 06:18 RBC 4.97 X10^6/uL (4.7-6.0) 02/02/18 06:18 Hgb 13.2 g/dL (13.5-18.0) L 02/02/18 15:52 Hct 40.5 % (42.0-54.0) L 02/02/18 15:52 MCV 87.2 fL (80.0-100.0) 02/02/18 06:18 MCH 28.4 pg (27.0-34.0) 02/02/18 06:18 MCHC 32.5 g/dL (33.0-35.0) L 02/02/18 06:18 RDW 16.0 % (11.6-16.5) 02/02/18 06:18 Plt Count 289 X10^3/uL (150.0-450.0) 02/02/18 06:18 MPV 8.1 fL (7.4-11.0) 02/02/18 06:18 Neut % (Auto) 83.6 % (42.0-75.0) H 02/02/18 06:18 Lymph % (Auto) 9.9 % (21.0-51.0) L 02/02/18 06:18 [place] % (Auto) 4.9 % (0.0-13.0) 02/02/18 06:18 Eos % (Auto) 1.2 % (0.9-2.9) 02/02/18 06:18 Baso % (Auto) 0.4 % (0.2-1.0) 02/02/18 06:18 Neut # (Auto) 13.0 x10^3/uL (2.2-4.8) H 02/02/18 06:18 Lymph # (Auto) 1.5 X10^3/uL (1.3-2.9) 02/02/18 06:18 [place] # (Auto) 0.8 x10^3/uL (0.3-0.8) 02/02/18 06:18 Eos # (Auto) 0.2 x10^3/uL (0.0-0.2) 02/02/18 06:18 Baso # (Auto) 0.1 X10^3/uL (0.0-0.1) 02/02/18 06:18 Absolute Nucleated RBC 0.0 /100WBC 02/02/18 06:18 INR Target Range - 02/02/18 06:18 INR 0.95 (0.8-1.3) 02/02/18 06:18 APTT 26.2 SECONDS (22.9-36.5) 02/02/18 06:18 PTT Comment - 02/02/18 06:18 D-Dimer 2970 ng/mL (0-400) H* 02/02/18 06:18 Sodium 139 mmol/L (136-145) 02/02/18 06:18 Corrected Sodium 139 mmol/L (136-145) 02/02/18 06:18 Potassium 4.2 mmol/L (3.5-5.1) 02/02/18 06:18 Chloride 98 mmol/L (98-107) 02/02/18 06:18 Carbon Dioxide 31.0 mmol/L (21-32) 02/02/18 06:18 BUN 30 mg/dL (7-18) H 02/02/18 06:18 Creatinine 1.34 mg/dL (0.70-1.30) H 02/02/18 06:18 Est GFR (MDRD) Af Amer > 60 (>60) 02/02/18 06:18 Est GFR (MDRD) Non-Af 55 (>60) L 02/02/18 06:18 Glucose 111 mg/dL (65-99) H 02/02/18 06:18 Calcium 10.0 mg/dL (8.5-10.1) 02/02/18 06:18 Corrected Calcium TNP 02/02/18 06:18 Magnesium 1.8 mg/dL (1.7-2.9) 02/02/18 06:18 Total Bilirubin 0.50 mg/dL (0.2-1.0) 02/02/18 06:18 AST 33 Units/L (15-37) 02/02/18:18 ALT 18 Units/L (12-78) 02/02/18 06:18 Alkaline Phosphatase 66 Units/L (46-116) 02/02/18 06:18 Creatine Kinase 65 Units/L (39-308) 02/02/18 13:14 CK-MB (CK-2) 2.1 ng/mL (0-4.0) 02/02/18 13:14 CK/CKMB % Calc 3.2 % (<4) 02/02/18 13:14 Troponin I < 0.02 ng/mL (0-1.5) 02/02/18 13:14 Total Protein 9.0 g/dL (6.4-8.2) H 02/02/18 06:18 Albumin 3.6 g/dL (3.4-5.0) 02/02/18 06:18 Globulin 5.4 g/dL (2.5-4.5) H 02/02/18 06:18 Albumin/Globulin Ratio 0.7 Ratio (1.1-2.1) L 02/02/18 06:18 Specimen Type Catherized urine 02/02/18 11:20 Urine Color Yellow (YELLOW) 02/02/18 11:20 Urine Appearance Clear (CLEAR) 02/02/18 11:20 Urine pH 6.5 (5.0 - 8.0) 02/02/18 11:20 Ur Specific [place] 1.015 (1.000-1.030) 02/02/18 11:20 Urine Protein 2+ (NEGATIVE) 02/02/18 11:20 Urine Glucose (UA) Negative (NEGATIVE) 02/02/18 11:20 Urine Ketones Negative (NEGATIVE) 02/02/18 11:20 Urine Occult Blood 1+ (NEGATIVE) 02/02/18 11:20 Urine Nitrite Negative (NEGATIVE) 02/02/18 11:20 Urine Bilirubin Negative (NEGATIVE) 02/02/18 11:20 Urine Urobilinogen Normal (NORMAL) 02/02/18 11:20 Ur Leukocyte Esterase Negative (NEGATIVE) 02/02/18 11:20 Urine RBC 0-2 /HPF (NONE SEEN) 02/02/18 11:20 Urine WBC 0-2 /HPF (NONE SEEN) 02/02/18 11:20 Ur Squamous Epith Cells Rare /HPF (NEGATIVE) 02/02/18 11:20 Urine Bacteria Negative /HPF (NEGATIVE) 02/02/18 11:20 Granular Casts Rare /LPF (NEGATIVE) 02/02/18 11:20 Ur Culture Indicated? No/not indicated 02/02/18 11:20 XRAY XRAY Interpreted by: Radiologist XRAY Findings: SEE REPORT. EKG [place]: Normal Rhythm: NSR Diagnosis Discharge Problem: COPD exacerbation Pneumonia Qualifiers: Pneumonia type: due to unspecified organism Laterality: bilateral Lung location: lower lobe of lung Qualified Code(s): J18.1 - Lobar pneumonia, unspecified organism Chest pain Qualifiers: Chest pain type: precordial pain Qualified Code(s): R07.2 - Precordial pain
[2018-02-02] MEDS ORDERED: ASPIRIN 81 MG CHEWTAB ONE (05:55)
[2018-02-02 05:56] VITALS: BMI 26.9
[2018-02-02 06:31] LABS: BASOPHILS # (AUTO) 0.1 X10^3/uL (0.0-0.1); BASOPHILS % (AUTO) 0.4 % (0.2-1.0); EOSINOPHILS # (AUTO) 0.2 x10^3/uL (0.0-0.2); EOSINOPHILS % (AUTO) 1.2 % (0.9-2.9); HEMATOCRIT 43.4 % (42.0-54.0); HEMOGLOBIN 14.1 g/dL (13.5-18.0); LYMPHOCYTES # (AUTO) 1.5 X10^3/uL (1.3-2.9); LYMPHOCYTES % (AUTO) 9.9 % (21.0-51.0); MEAN CORPUSCULAR HEMOGLOBIN 28.4 pg (27.0-34.0); MEAN CORPUSCULAR HGB CONC 32.5 g/dL (33.0-35.0); MEAN CORPUSCULAR VOLUME 87.2 fL (80.0-100.0); MEAN PLATELET VOLUME 8.1 fL (7.4-11.0); MONOCYTES # (AUTO) 0.8 x10^3/uL (0.3-0.8); MONOCYTES % (AUTO) 4.9 % (0.0-13.0); NEUTROPHILS % (AUTO) 83.6 % (42.0-75.0); PLATELET COUNT 289 X10^3/uL (150.0-450.0); RED BLOOD COUNT 4.97 X10^6/uL (4.7-6.0); WHITE BLOOD COUNT 15.5 X10^3/uL (3.6-10.0)
--- NOTE | 2018-02-02 06:44 | RAD ---
HISTORY: Chest pain. Prior history of hypertension, COPD and CHF. Study: Single-view chest Comparison: 01/29/2018. Findings: Trachea is midline. There again changes of thoracotomy with median sternotomy sutures. Heart size is normal. There is aortic uncoiling. There is hyperinflation of the lungs with increased interstitial markings bilaterally. Small foci of superimposed atelectasis or infiltrate are present in the lung bases. No dense consolidation, pleural fluid or pneumothorax is seen. Osseous structures are intact. IMPRESSION: COPD with small foci of atelectasis or infiltrate in the lung bases. Postsurgical changes as noted. Reported By:
[2018-02-02 06:45] LABS: BLOOD UREA NITROGEN 30 mg/dL (7-18); CREATININE 1.34 mg/dL (0.70-1.30); TROPONIN I < 0.02 ng/mL (0-1.5); eGFR NON BLACK RACES 55 (>60)
[2018-02-02 06:49] LABS: ALANINE AMINOTRANSFERASE 18 Units/L (12-78); ALBUMIN 3.6 g/dL (3.4-5.0); ALKALINE PHOSPHATASE 66 Units/L (46-116); ASPARTATE AMINO TRANSFERASE 33 Units/L (15-37); CKMB % 3.1 % (<4); CREATINE KINASE 88 Units/L (39-308); CREATINE KINASE MB 2.7 ng/mL (0-4.0); MAGNESIUM 1.8 mg/dL (1.7-2.9)
[2018-02-02 06:50] LABS: CHLORIDE 98 mmol/L (98-107); COR NA(FOR HYPERGLY) 139 mmol/L (136-145); SODIUM 139 mmol/L (136-145)
[2018-02-02 08:07] LABS: BILIRUBIN,URINE NEGATIVE (NEGATIVE); BLOOD/HEMOGLOBIN,URINE 1+ (NEGATIVE); GLUCOSE, URINE NEGATIVE (NEGATIVE); KETONES,URINE NEGATIVE (NEGATIVE); LEUKOCYTE ESTERASE ,URINE NEGATIVE (NEGATIVE); NITRITES,URINE NEGATIVE (NEGATIVE); PROTEIN,URINE 2+ (NEGATIVE); UROBILINOGEN,URINE NORMAL (NORMAL)
[2018-02-02 08:15] LABS: APPEARANCE,URINE CLEAR (CLEAR); BACTERIA,URINE NEGATIVE /HPF (NEGATIVE); COLOR,URINE YELLOW (YELLOW); RBC,URINE 0-2 /HPF (NONE SEEN); SQUAMOUS EPITHELIAL CELL,UR RARE /HPF (NEGATIVE)
[2018-02-02] MEDS ORDERED: ZOFRAN INJ 4 MG VIAL IVP PRN (08:50)
[2018-02-02] MEDS ORDERED: DUONEB 0.5 MG/3 MG NEB SCH (09:00)
[2018-02-02] MEDS ORDERED: NS 1000 ML 1,000 ML IV SCH (09:00)
[2018-02-02] MEDS ORDERED: LEVAQUIN PREMIX IV 750 MG 750 MG/150 ML BAG IV SCH (09:00)
[2018-02-02] MEDS: COZAAR PO SCH (09:50)
[2018-02-02] MEDS: LOPRESSOR TAB 50 MG PO SCH ×2 (09:50→21:28)
[2018-02-02] MEDS ORDERED: PROVENTIL NEB TX 0.083% 2.5MG/ 3ML NEB PRN (10:35)
[2018-02-02 11:44] LABS: BILIRUBIN,URINE NEGATIVE (NEGATIVE); BLOOD/HEMOGLOBIN,URINE 1+ (NEGATIVE); GLUCOSE, URINE NEGATIVE (NEGATIVE); KETONES,URINE NEGATIVE (NEGATIVE); LEUKOCYTE ESTERASE ,URINE NEGATIVE (NEGATIVE); NITRITES,URINE NEGATIVE (NEGATIVE); PH,URINE 6.5 (5.0 - 8.0); PROTEIN,URINE 2+ (NEGATIVE); UROBILINOGEN,URINE NORMAL (NORMAL)
[2018-02-02 11:51] LABS: APPEARANCE,URINE CLEAR (CLEAR); COLOR,URINE YELLOW (YELLOW)
[2018-02-02 11:57] LABS: RBC,URINE 0-2 /HPF (NONE SEEN); SQUAMOUS EPITHELIAL CELL,UR RARE /HPF (NEGATIVE)
[2018-02-02 11:58] LABS: BACTERIA,URINE NEGATIVE /HPF (NEGATIVE); GRANULAR CASTS,URINE RARE /LPF (NEGATIVE)
[2018-02-02] MEDS ORDERED: NORMODYNE INJ 20 MG VIAL IV PRN (12:35)
[2018-02-02] MEDS ORDERED: NIFEDIPINE CAP 10 MG PO ONE (12:37)
[2018-02-02] MEDS ORDERED: PHENERGAN INJ 25 MG IM PRN (13:19)
[2018-02-02 13:47] LABS: CKMB % 3.2 % (<4); CREATINE KINASE 65 Units/L (39-308); CREATINE KINASE MB 2.1 ng/mL (0-4.0); TROPONIN I < 0.02 ng/mL (0-1.5)
[2018-02-02] MEDS ORDERED: LEVAQUIN TAB 750 MG PO NR (14:00)
[2018-02-02] MEDS ORDERED: XYLOCAINE 1 % (PLAIN) ONE (14:02)
--- NOTE | 2018-02-02 15:10 | RAD ---
HISTORY: Central line placement Study: AP portable chest Comparison: Earlier exam on 02/02/2018 at 6:20 a.m. Findings: There are findings of mild chronic interstitial scarring. Very minimal atelectatic change/infiltrate is noted in the right lung base. Heart size is normal. Mild tortuosity of the aorta is present. Patient is status post median sternotomy. A right-sided central line is been placed. No evidence of pneumothorax is noted. The central line appears to extend in to the right jugular and off the edge of the exam. Carotid arterial stents are present on the left. IMPRESSION: 1. Findings of chronic obstructive pulmonary disease. 2. Minimal atelectatic change/infiltrate the right lung base. 3. A right-sided central line is present. The tubing appears to extend into the right jugular vein off the edge of the exam. 4. No evidence of pneumothorax is noted. Reported By:
[2018-02-02 16:17] LABS: HEMATOCRIT 40.5 % (42.0-54.0); HEMOGLOBIN 13.2 g/dL (13.5-18.0)
[2018-02-02] MEDS ORDERED: NS 250 ML IV 250 ML IV ONE (16:36)
[2018-02-02] MEDS ORDERED: LEVAQUIN PREMIX IV 750 MG 750 MG/150 ML BAG IV ONE (16:36)
[2018-02-02] MEDS: LEVAQUIN PREMIX IV 750 MG 750 MG/150 ML BAG IV SCH (16:39)
[2018-02-02] MEDS: ROCEPHIN VIAL 1 GRAM IVP SCH (16:39)
[2018-02-02] MEDS ORDERED: NORMODYNE INJ 100 MG VIAL ONE (16:55)
--- NOTE | 2018-02-02 16:56 | CT ---
HISTORY: Right upper quadrant abdominal pain Study: CT abdomen without contrast Comparison: None Technique: Multiple axial images of the abdomen were obtained without IV contrast. Oral contrast was not administered. Dose reduction techniques including Automated Exposure Control (AEC) and adjustment of mA and kV were utilized. Findings: Partially visualized sternotomy changes post aortic valve repair noted. There are emphysematous changes at the lung bases with mild bronchiolar thickening and tree-in-bud opacities at the right lung base that may reflect bronchiolitis. The unenhanced spleen, pancreas, liver and adrenal glands are unremarkable. There is mild bilateral renal cortical atrophy and perinephric stranding suggesting chronic renal insufficiency. There are nonobstructing right renal calculi. Gallbladder is distended with pericholecystic stranding and gallbladder wall thickening suggesting acute cholecystitis. No calcified stones are identified. The bile ducts appear normal in caliber. No free intraperitoneal air. There is mild reactive inflammation of the hepatic flexure of the colon related to gallbladder inflammation. Colonic diverticulosis is noted. No free fluid identified. The soft tissues and osseous structures are unremarkable. There is extensive calcified plaque throughout the aorta and branch vessels. There is a saccular infrarenal abdominal aortic aneurysm measuring 4 x 3.1 cm. Within the aneurysm sac there is a calcified septum present suggestive of an intimal flap that may reflect focal area of dissection. Further evaluation limited by lack of IV contrast. Pelvis was not imaged. IMPRESSION: 1. Distended gallbladder with surrounding inflammatory stranding and gallbladder wall thickening suggestive of acute cholecystitis. 2. There is reactive inflammation of the hepatic flexure of the colon related to cholecystitis. 3. Abdominal aortic aneurysm as described with calcified intimal flap that may represent focal area of dissection. Further evaluation limited by lack of IV contrast. 4. Right nephrolithiasis. 5. Right lung base bronchiolar thickening and tree-in-bud opacities and background emphysematous changes that may represent bronchiolitis. Reported By:
[2018-02-02] MEDS ORDERED: NS 250 ML IV 250 ML IV SCH (17:00)
[2018-02-02] MEDS ORDERED: LEVAQUIN TAB 750 MG PO SCH (17:00)
[2018-02-02 19:11] LABS: HEMOGLOBIN 12.7 g/dL (13.5-18.0); MEAN CORPUSCULAR HEMOGLOBIN 28.2 pg (27.0-34.0); MEAN CORPUSCULAR HGB CONC 32.7 g/dL (33.0-35.0)
[2018-02-02 19:23] LABS: BASOPHILS % (AUTO) 0.1 % (0.2-1.0); LYMPHOCYTES # (AUTO) 0.9 X10^3/uL (1.3-2.9); LYMPHOCYTES % (AUTO) 3.3 % (21.0-51.0); MEAN CORPUSCULAR VOLUME 86.2 fL (80.0-100.0); MEAN PLATELET VOLUME 8.1 fL (7.4-11.0); MONOCYTES % (AUTO) 3.7 % (0.0-13.0); NEUTROPHILS # (AUTO) 23.9 x10^3/uL (2.2-4.8); NEUTROPHILS % (AUTO) 92.9 % (42.0-75.0); PLATELET COUNT 295 X10^3/uL (150.0-450.0); RED BLOOD COUNT 4.52 X10^6/uL (4.7-6.0); RED CELL DISTRIBUTION WIDTH 15.6 % (11.6-16.5); WHITE BLOOD COUNT 25.8 X10^3/uL (3.6-10.0)
[2018-02-02 19:33] LABS: CKMB % 1.5 % (<4); CREATINE KINASE 152 Units/L (39-308); CREATINE KINASE MB 2.2 ng/mL (0-4.0); TROPONIN I < 0.02 ng/mL (0-1.5)
[2018-02-02 19:48] LABS: AMYLASE 35 Units/L (25-115); LIPASE 92 Units/L (73-393)
[2018-02-02 20:22] LABS: ANISOCYTOSIS SLIGHT; BAND NEUTROPHILS % 7 % (0-10); PLATELET MORPHOLOGY COMMENT NORMAL (NORMAL)
--- NOTE | 2018-02-02 20:56 | US ---
HISTORY: 77-year-old male with right upper quadrant abdominal pain. Study: Right upper quadrant abdominal ultrasound Comparison: None. Technique: Multiple singleton scale and color flow Doppler images of the right upper quadrant were obtained. Findings: The liver measures 8 cm is normal in echotexture. No focal intraparenchymal mass or intrahepatic biliary ductal dilatation can be observed. Imaged hepatic vasculature demonstrates normal color Doppler flow and spectral analysis. Multiple mobile shadowing gallstones intermixed with significant degree of sludge with positive sonographic Presley sign and gallbladder wall measuring 0.6 cm. The common bile duct is unremarkable measuring 0.5 cm. No pericholecystic fluid. The right kidney appears normal in size without focal parenchymal mass or nephrolithiasis. The right kidney measurers 10 cm. No hydronephrosis or perirenal fluid can be observed. Simple appearing cysts measuring up to 1.9 cm within the mid right kidney. The pancreas is largely obscured by overlying bowel gas. IMPRESSION: 1. Cholelithiasis with gallbladder sludge and thickened gallbladder wall suggesting chronic cholecystitis. Correlate with serology and consider outpatient HIDA scan to assess gallbladder function. Consider surgical consultation. 2. Simple right renal cyst. 3. Atrophic liver as imaged with normal appearance of the parenchyma. Correlate with serology. Reported By:
[2018-02-03] MEDS: Atrovent NEB TX 0.02% NEB SCH ×4 (04:57→17:00)
[2018-02-03] MEDS: XOPENEX 1.25 MG/3 ML NEBULE NEB SCH ×3 (04:58→17:00)
[2018-02-03] MEDS: NYSTATIN POWDER TOP SCH ×3 (05:40→20:33)
[2018-02-03 06:16] LABS: BASOPHILS # (AUTO) 0.1 X10^3/uL (0.0-0.1); BASOPHILS % (AUTO) 0.2 % (0.2-1.0); HEMATOCRIT 38.8 % (42.0-54.0); HEMOGLOBIN 12.7 g/dL (13.5-18.0); LYMPHOCYTES # (AUTO) 1.3 X10^3/uL (1.3-2.9); LYMPHOCYTES % (AUTO) 4.7 % (21.0-51.0); MEAN CORPUSCULAR HEMOGLOBIN 28.4 pg (27.0-34.0); MEAN CORPUSCULAR HGB CONC 32.9 g/dL (33.0-35.0); MEAN CORPUSCULAR VOLUME 86.3 fL (80.0-100.0); MEAN PLATELET VOLUME 8.6 fL (7.4-11.0); MONOCYTES # (AUTO) 1.6 x10^3/uL (0.3-0.8); MONOCYTES % (AUTO) 5.8 % (0.0-13.0); NEUTROPHILS # (AUTO) 25.1 x10^3/uL (2.2-4.8); NEUTROPHILS % (AUTO) 89.3 % (42.0-75.0); PLATELET COUNT 296 X10^3/uL (150.0-450.0); RED BLOOD COUNT 4.49 X10^6/uL (4.7-6.0); RED CELL DISTRIBUTION WIDTH 15.7 % (11.6-16.5); WHITE BLOOD COUNT 28.1 X10^3/uL (3.6-10.0)
[2018-02-03 06:44] LABS: ALANINE AMINOTRANSFERASE 17 Units/L (12-78); ALBUMIN 2.6 g/dL (3.4-5.0); ALKALINE PHOSPHATASE 56 Units/L (46-116); ASPARTATE AMINO TRANSFERASE 29 Units/L (15-37); BLOOD UREA NITROGEN 22 mg/dL (7-18); CALCIUM 8.7 mg/dL (8.5-10.1); CARBON DIOXIDE 33.1 mmol/L (21-32); CHLORIDE 100 mmol/L (98-107); CHOLESTEROL 117 mg/dL (0-200); COR CA(FOR HYPOALB) 9.8 mg/dL (8.5-10.1); COR NA(FOR HYPERGLY) 138 mmol/L (136-145); CREATININE 1.11 mg/dL (0.70-1.30); HDL CHOLESTEROL 59 mg/dL (40-60); SODIUM 137 mmol/L (136-145); TOTAL PROTEIN 7.2 g/dL (6.4-8.2); TRIGLYCERIDES 53 mg/dL (0-150); eGFR NON BLACK RACES > 60 (>60)
[2018-02-03 07:32] LABS: BAND NEUTROPHILS % 3 % (0-10); PLATELET MORPHOLOGY COMMENT NORMAL (NORMAL)
[2018-02-03] MEDS: ROCEPHIN VIAL 1 GRAM IVP SCH (09:15)
[2018-02-03] MEDS: LEVAQUIN PREMIX IV 750 MG 750 MG/150 ML BAG IV SCH ×2 (09:15→09:17)
[2018-02-03] MEDS: LOPRESSOR TAB 50 MG PO SCH ×2 (09:16→20:24)
[2018-02-03] MEDS: COZAAR PO SCH (09:16)
[2018-02-03] MEDS ORDERED: NS 100 ML IV + SPIKE MINIBAG* 100 ML IV ONE ×2 (11:38→20:12)
[2018-02-03] MEDS: ZOSYN VIAL 3.375 GRAMS IV SCH ×3 (11:40→21:08)
[2018-02-03] MEDS: NS 1000 ML 1,000 ML IV SCH ×2 (13:48→20:25)
--- NOTE | 2018-02-03 14:16 | PCM.PROG ---
Progress Note Progress Note for Day of Date of Exam: 02/03/18 Subjective Subjective: PATIENT IS 77YRS OLD ADMITTED FOR CHEST PAIN RULE OUT [place] AND COPD EXACERBATION. HE DEVELOP RUQ ABDOMINAL PAIN WITH CT SHOWING CHOLECYSTITIS AND US SHOWING CHOLELITHIASIS WELL. HE IS RUNNING FEVER AND HAVE ELEVATED WBC. HE IS ON LEVAQUIN AND ROCEPHEN AND WAS GIVEN ZOSYN TODAY. HE IS STILL WEAK AND NOT FEELING BETTER. Past Medical Family Social History Past Med/Fam/Surg Hx: No changes since H&P Changes in Past Med/Fam/Surg Hx: PAST MEDICAL HISTORY COPD, CHF, HTN AND GOUT AND PVD. VALVE AND FEM. SURG. Allergies: Allergies No Known Drug Allergies Allergy (Verified 12/14/17 14:27) Review of Systems ROS: Changes notes (describe) ROS changes noted: UPPER ABDOMINAL PAIN DIADNOSE CHOLELITHIASIS/CHOLECYSTISIS. Vital Signs and I&O's Vital Signs: Temperature 98.8 F Pulse Rate [Left Brachial] 78 Pulse Rate 80 Respiratory Rate 22 Blood Pressure [Right Arm] 182/76 Blood Pressure [Left Arm] 195/86 Blood Pressure 125/58 O2 Sat by Pulse Oximetry 95 Intake and Output: Intake & Output 01/31/18 02/01/18 02/02/18 02/03/18 23:59 23:59 23:59 23:59 Intake Total 300 / 300 Output Total 1000 / 1000 Balance -700 / -700 Physical Exam Oriented: Normal, Time, Person and Place Eyes: Normal Ear: Normal Nose: Normal Throat: Normal Respiratory: Wheezes, Rales (LOWER LUNGS.) and Rhonchi Cardiovascular: Normal : Normal Auscultation: Bowel Sounds: Normal Palpation: Normal Tenderness: RUQ and Moderate Skin: Other (DRY.) Musculoskeletal: Normal Psychiatric: Normal and Other Mood Description: Calm Affect: Quiet Speech Pattern: Clear and Appropriate Laboratory and Diagnostics Result Diagrams: 02/04/18 05:18 02/04/18 05:18 Labs: Laboratory WBC 28.1 X10^3/uL (3.6-10.0) H 02/03/18 04:43 RBC 4.49 X10^6/uL (4.7-6.0) L 02/03/18 04:43 Hgb 12.7 g/dL (13.5-18.0) L 02/03/18 04:43 Hct 38.8 % (42.0-54.0) L 02/03/18 04:43 MCV 86.3 fL (80.0-100.0) 02/03/18 04:43 MCH 28.4 pg (27.0-34.0) 02/03/18 04:43 MCHC 32.9 g/dL (33.0-35.0) L 02/03/18 04:43 RDW 15.7 % (11.6-16.5) 02/03/18 04:43 Plt Count 296 X10^3/uL (150.0-450.0) 02/03/18 04:43 Plt Count Comment Adequate (ADEQUATE) 02/03/18 04:43 MPV 8.6 fL (7.4-11.0) 02/03/18 04:43 Neut % (Auto) 89.3 % (42.0-75.0) H 02/03/18 04:43 Lymph % (Auto) 4.7 % (21.0-51.0) L 02/03/18 04:43 [place] % (Auto) 5.8 % (0.0-13.0) 02/03/18 04:43 Eos % (Auto) 0.0 % (0.9-2.9) L 02/03/18 04:43 Baso % (Auto) 0.2 % (0.2-1.0) 02/03/18 04:43 Neut # (Auto) 25.1 x10^3/uL (2.2-4.8) H 02/03/18 04:43 Lymph # (Auto) 1.3 X10^3/uL (1.3-2.9) 02/03/18 04:43 [place] # (Auto) 1.6 x10^3/uL (0.3-0.8) H 02/03/18 04:43 Eos # (Auto) 0.0 x10^3/uL (0.0-0.2) 02/03/18 04:43 Baso # (Auto) 0.1 X10^3/uL (0.0-0.1) 02/03/18 04:43 Absolute Nucleated RBC 0.0 /100WBC 02/03/18 04:43 Total Counted 100 11/10/18 04:43 Neutrophils % (Manual) 83 % (39-76) H 02/03/18 04:43 Band Neutrophils % 3 % (0-10) 02/03/18 04:43 Lymphocytes % (Manual) 10 % (13-43) L 02/03/18 04:43 Monocytes % (Manual) 4 % (4-9) 02/03/18 04:43 Plt Morphology Comment Normal (NORMAL) 02/03/18 04:43 RBC Morphology Normal (NORMAL) 02/03/18 04:43 Anisocytosis Slight A 02/02/18 18:52 INR Target Range - 02/02/18 06:18 INR 0.95 (0.8-1.3) 02/02/18 06:18 APTT 26.2 SECONDS (22.9-36.5) 02/02/18 06:18 PTT Comment - 02/02/18 06:18 D-Dimer 2970 ng/mL (0-400) H* 02/02/18 06:18 Sodium 137 mmol/L (136-145) 02/03/18 04:43 Corrected Sodium 138 mmol/L (136-145) 02/03/18 04:43 Potassium 4.1 mmol/L (3.5-5.1) 02/03/18 04:43 Chloride 100 mmol/L (98-107) 02/03/18 04:43 Carbon Dioxide 33.1 mmol/L (21-32) H 02/03/18 04:43 BUN 22 mg/dL (7-18) H 02/03/18 04:43 Creatinine 1.11 mg/dL (0.70-1.30) 02/03/18 04:43 Est GFR (MDRD) Af Amer > 60 (>60) 02/03/18 04:43 Est GFR (MDRD) Non-Af > 60 (>60) 02/03/18 04:43 Glucose 128 mg/dL (65-99) H 02/03/18 04:43 Lactic Acid 0.6 mmol/L (0.4-2.0) 02/02/18 15:52 Calcium 8.7 mg/dL (8.5-10.1) 02/03/18 04:43 Corrected Calcium 9.8 mg/dL (8.5-10.1) 02/03/18 04:43 Magnesium 1.8 mg/dL (1.7-2.9) 02/02/18 06:18 Total Bilirubin 0.80 mg/dL (0.2-1.0) 02/03/18 04:43 AST 29 Units/L (15-37) 02/03/18 04:43 ALT 17 Units/L (12-78) 02/03/18 04:43 Alkaline Phosphatase 56 Units/L (46-116) 02/03/18 04:43 Creatine Kinase 152 Units/L (39-308) 02/02/18 18:52 CK-MB (CK-2) 2.2 ng/mL (0-4.0) 02/02/18 18:52 CK/CKMB % Calc 1.5 % (<4) 02/02/18 18:52 Troponin I < 0.02 ng/mL (0-1.5) 02/02/18 18:52 Total Protein 7.2 g/dL (6.4-8.2) 02/03/18 04:43 Albumin 2.6 g/dL (3.4-5.0) L 02/03/18 04:43 Globulin 4.6 g/dL (2.5-4.5) H 02/03/18 04:43 Albumin/Globulin Ratio 0.6 Ratio (1.1-2.1) L 02/03/18 04:43 Triglycerides 53 mg/dL (0-150) 02/03/18 04:43 Cholesterol 117 mg/dL (0-200) 02/03/18 04:43 LDL Cholesterol, Calc 47 mg/dL (0-100) 02/03/18 04:43 HDL Cholesterol 59 mg/dL (40-60) 02/03/18 04:43 Cholesterol/HDL Ratio 2.0 (0.0-5.0) 02/03/18 04:43 Amylase 35 Units/L (25-115) 02/02/18 18:53 Lipase 92 Units/L (73-393) 02/02/18 18:53 Specimen Type Catherized urine 02/02/18 11:20 Urine Color Yellow (YELLOW) 02/02/18 11:20 Urine Appearance Clear (CLEAR) 02/02/18 11:20 Urine pH 6.5 (5.0 - 8.0) 02/02/18 11:20 Ur Specific [place] 1.015 (1.000-1.030) 02/02/18 11:20 Urine Protein 2+ (NEGATIVE) 02/02/18 11:20 Urine Glucose (UA) Negative (NEGATIVE) 02/02/18 11:20 Urine Ketones Negative (NEGATIVE) 02/02/18 11:20 Urine Occult Blood 1+ (NEGATIVE) 02/02/18 11:20 Urine Nitrite Negative (NEGATIVE) 02/02/18 11:20 Urine Bilirubin Negative (NEGATIVE) 02/02/18 11:20 Urine Urobilinogen Normal (NORMAL) 02/02/18 11:20 Ur Leukocyte Esterase Negative (NEGATIVE) 02/02/18 11:20 Urine RBC 0-2 /HPF (NONE SEEN) 02/02/18 11:20 Urine WBC 0-2 /HPF (NONE SEEN) 02/02/18 11:20 Ur Squamous Epith Cells Rare /HPF (NEGATIVE) 02/02/18 11:20 Urine Bacteria Negative /HPF (NEGATIVE) 02/02/18 11:20 Granular Casts Rare /LPF (NEGATIVE) 02/02/18 11:20 Ur Culture Indicated? No/not indicated 02/02/18 11:20 Plan (1) Cholecystitis, acute with cholelithiasis: Status: Acute Narrative Support Text: PATIENT WITH RIGHT UPPER QUADRANT ABDOMINAL PAIN AND FEVER WITH ELEVATED WHITE COUNT THAT IS GETTING WORSE. PLAN IS TO TRANSFER PATIENT TO [facility] WHERE PATIENT HAVE MOST OF HIS CURRENT PHYSICIANS. (2) Cholecystitis with cholelithiasis: Status: Acute Plan: INDICATED ABOVE. CHEST PAIN, [place] RULED OUT. AND PNEUMONIA WAS NOT CONFIRM ON CT EXAM.
[2018-02-03] MEDS ORDERED: Atrovent NEB TX 0.02% ONE (15:55)
[2018-02-03] MEDS ORDERED: XOPENEX 1.25 MG/3 ML NEBULE NEB ONE (15:55)
[2018-02-03] MEDS: KLONOPIN TAB 0.5 MG PO PRN (20:33)
[2018-02-04] MEDS: Atrovent NEB TX 0.02% NEB SCH ×4 (02:34→17:00)
[2018-02-04] MEDS: XOPENEX 1.25 MG/3 ML NEBULE NEB SCH ×4 (02:34→17:00)
[2018-02-04] MEDS ORDERED: NS 100 ML IV + SPIKE MINIBAG* 100 ML IV ONE ×3 (05:09→21:02)
[2018-02-04] MEDS: NS 1000 ML 1,000 ML IV SCH ×3 (05:25→19:32)
[2018-02-04] MEDS: ZOSYN VIAL 3.375 GRAMS IV SCH ×3 (05:25→21:06)
[2018-02-04 06:34] LABS: BASOPHILS % (AUTO) 0.2 % (0.2-1.0); HEMATOCRIT 35.8 % (42.0-54.0); HEMOGLOBIN 11.9 g/dL (13.5-18.0); LYMPHOCYTES # (AUTO) 1.3 X10^3/uL (1.3-2.9); LYMPHOCYTES % (AUTO) 5.6 % (21.0-51.0); MEAN CORPUSCULAR HEMOGLOBIN 28.8 pg (27.0-34.0); MEAN CORPUSCULAR HGB CONC 33.4 g/dL (33.0-35.0); MEAN CORPUSCULAR VOLUME 86.1 fL (80.0-100.0); MEAN PLATELET VOLUME 8.6 fL (7.4-11.0); MONOCYTES # (AUTO) 1.6 x10^3/uL (0.3-0.8); MONOCYTES % (AUTO) 6.8 % (0.0-13.0); NEUTROPHILS # (AUTO) 20.4 x10^3/uL (2.2-4.8); NEUTROPHILS % (AUTO) 87.4 % (42.0-75.0); PLATELET COUNT 262 X10^3/uL (150.0-450.0); RED BLOOD COUNT 4.15 X10^6/uL (4.7-6.0); WHITE BLOOD COUNT 23.3 X10^3/uL (3.6-10.0)
[2018-02-04 06:35] LABS: ALANINE AMINOTRANSFERASE 17 Units/L (12-78); ALKALINE PHOSPHATASE 54 Units/L (46-116); AMYLASE 36 Units/L (25-115); ASPARTATE AMINO TRANSFERASE 24 Units/L (15-37); BLOOD UREA NITROGEN 34 mg/dL (7-18); CALCIUM 8.7 mg/dL (8.5-10.1); CARBON DIOXIDE 35.1 mmol/L (21-32); CHLORIDE 102 mmol/L (98-107); COR CA(FOR HYPOALB) 10.3 mg/dL (8.5-10.1); COR NA(FOR HYPERGLY) 142 mmol/L (136-145); CREATININE 1.36 mg/dL (0.70-1.30); LIPASE 132 Units/L (73-393); SODIUM 141 mmol/L (136-145); TOTAL PROTEIN 6.8 g/dL (6.4-8.2); eGFR NON BLACK RACES 54 (>60)
[2018-02-04 07:01] LABS: BAND NEUTROPHILS % 5 % (0-10); PLATELET MORPHOLOGY COMMENT NORMAL (NORMAL)
[2018-02-04] MEDS: LOPRESSOR TAB 50 MG PO SCH ×2 (09:11→21:06)
[2018-02-04] MEDS: COZAAR PO SCH (09:11)
[2018-02-04] MEDS: LEVAQUIN PREMIX IV 750 MG 750 MG/150 ML BAG IV SCH ×2 (09:11→10:40)
[2018-02-04] MEDS: NYSTATIN POWDER TOP SCH ×2 (10:40→21:06)
[2018-02-04] MEDS ORDERED: KLOR-CON PO PRN (17:56)
[2018-02-04] MEDS ORDERED: MICRO K EXTEN CAP 10 MEQ PO PRN (17:56)
[2018-02-04] MEDS ORDERED: K-RIDER 10 MEQ/NS 100 ML 10 MEQ/100 ML BAG IV PRN (17:56)
[2018-02-04] MEDS ORDERED: K-DUR TAB 20 MEQ PO PRN (17:56)
[2018-02-04] MEDS ORDERED: POTASSIUM CHL 40 MEQ/NS 0.45% 500 ML IV PRN (17:56)
[2018-02-04] MEDS ORDERED: POTASSIUM CHLORIDE LIQ 20 MEQ UDC PO PRN (17:56)
[2018-02-04] MEDS ORDERED: POTASSIUM CHL 60 MEQ/NS 0.45% 500 ML IV PRN (17:56)
[2018-02-04] MEDS ORDERED: NS 1000 ML 1,000 ML IV ONE (18:02)
--- NOTE | 2018-02-04 18:25 | DR.H&P ---
H&P Allergies Allergies Allergy/AdvReac Type Severity Reaction Status Date / Time No Known Drug Allergies Allergy Verified 12/14/17 14:27 Past Medical History Past Medical History: CHF, COPD, Gout and Hypertension Past Surgical History Surgical History: CABG/Valve Surgery, Ortho Surgery and Tonsillectomy Family History Family Medical History: Diabetes Mellitus and [place] Social History Does patient currently use any type of tobacco product: No Have you used tobacco products in the last 12 months: No Type of Tobacco Use: Cigarettes How many years tobacco product used: 55 Does any household member use tobacco: No Alcohol Use: None Drug Use: None Medications Home Medications: No Known Drug Allergies Allergy (Verified 12/14/17 14:27) Physical Exam Vital Signs: Temperature 97.9 F Pulse Rate [Left Brachial] 78 Pulse Rate 92 Respiratory Rate 18 Blood Pressure [Right Arm] 182/76 Blood Pressure [Left Arm] 195/86 Blood Pressure 97/52 O2 Sat by Pulse Oximetry 97 Oriented: Normal, Time, Person and Place Assessment/Plan (1) Cholecystitis, acute with cholelithiasis: Status: Acute (2) Cholecystitis with cholelithiasis: Status: Acute
--- NOTE | 2018-02-04 18:42 | PCM.PROG ---
Progress Note Progress Note for Day of Date of Exam: 02/04/18 Subjective Subjective: ACUTE CHOLECYSTITIS AND CHOLELITHIASIS ON LEVAQUIN AND ZOSYN. PATIENT ADMITTED FOR CHEST PAIN RULE OUT CA AND COPD WITH PNEUMONIA. CT ABDOMEN AND PELVIS RULE OUT PNEUMONIA. PATIENT IS RUNNING LOWGRADE TEMPT. AND STILL FEELING WEAK. HE IS AWAITING FOR BED AT [facility] FOR FURTHER MANAGEMENT . Past Medical Family Social History Past Med/Fam/Surg Hx: No changes since H&P Allergies: Allergies No Known Drug Allergies Allergy (Verified 12/14/17 14:27) Review of Systems ROS: Changes notes (describe) Vital Signs and I&O's Vital Signs: Temperature 97.9 F Pulse Rate [Left Brachial] 78 Pulse Rate 92 Respiratory Rate 18 Blood Pressure [Right Arm] 182/76 Blood Pressure [Left Arm] 195/86 Blood Pressure 97/52 O2 Sat by Pulse Oximetry 97 Intake and Output: Intake & Output 02/01/18 02/02/18 02/03/18 02/04/18 23:59 23:59 23:59 23:59 Intake Total 300 / 300 1822 / 1822 1352 / 1352 Output Total 1000 / 1000 600 / 600 450 / 450 Balance -700 / -700 1222 / 1222 902 / 902 Physical Exam Oriented: Normal, Time, Person and Place Eyes: Normal Ear: Normal Nose: Normal Throat: Normal Respiratory: Wheezes, Rales (LOWER LUNGS.) and Rhonchi Cardiovascular: Normal : Normal Auscultation: Bowel Sounds: Normal Tenderness: RUQ and Moderate Skin: Other (DRY.) Musculoskeletal: Normal Psychiatric: Normal and Other Mood Description: Calm Affect: Quiet Speech Pattern: Clear and Appropriate Laboratory and Diagnostics Result Diagrams: 02/04/18 05:18 02/04/18 05:18 Labs: Laboratory WBC 23.3 X10^3/uL (3.6-10.0) H 02/04/18 05:18 RBC 4.15 X10^6/uL (4.7-6.0) L 02/04/18 05:18 Hgb 11.9 g/dL (13.5-18.0) L 02/04/18 05:18 Hct 35.8 % (42.0-54.0) L 02/04/18 05:18 MCV 86.1 fL (80.0-100.0) 02/04/18 05:18 MCH 28.8 pg (27.0-34.0) 02/04/18 05:18 MCHC 33.4 g/dL (33.0-35.0) 02/04/18 05:18 RDW 16.0 % (11.6-16.5) 02/04/18 05:18 Plt Count 262 X10^3/uL (150.0-450.0) 02/04/18 05:18 Plt Count Comment Adequate (ADEQUATE) 02/04/18 05:18 MPV 8.6 fL (7.4-11.0) 02/04/18 05:18 Neut % (Auto) 87.4 % (42.0-75.0) H 02/04/18 05:18 Lymph % (Auto) 5.6 % (21.0-51.0) L 02/04/18 05:18 [place] % (Auto) 6.8 % (0.0-13.0) 02/04/18 05:18 Eos % (Auto) 0.0 % (0.9-2.9) L 02/04/18 05:18 Baso % (Auto) 0.2 % (0.2-1.0) 02/04/18 05:18 Neut # (Auto) 20.4 x10^3/uL (2.2-4.8) H 02/04/18 05:18 Lymph # (Auto) 1.3 X10^3/uL (1.3-2.9) 02/04/18 05:18 [place] # (Auto) 1.6 x10^3/uL (0.3-0.8) H 02/04/18 05:18 Eos # (Auto) 0.0 x10^3/uL (0.0-0.2) 02/04/18 05:18 Baso # (Auto) 0.0 X10^3/uL (0.0-0.1) 02/04/18 05:18 Absolute Nucleated RBC 0.1 /100WBC 02/04/18 05:18 Total Counted 100 02/04/18 05:18 Neutrophils % (Manual) 82 % (39-76) H 02/04/18 05:18 Band Neutrophils % 5 % (0-10) 02/04/18 05:18 Lymphocytes % (Manual) 6 % (13-43) L 02/04/18 05:18 Monocytes % (Manual) 7 % (4-9) 02/04/18 05:18 Plt Morphology Comment Normal (NORMAL) 02/04/18 05:18 RBC Morphology Normal (NORMAL) 02/04/18 05:18 Anisocytosis Slight A 02/02/18 18:52 INR Target Range - 02/02/18 06:18 INR 0.95 (0.8-1.3) 02/02/18 06:18 APTT 26.2 SECONDS (22.9-36.5) 02/02/18 06:18 PTT Comment - 02/02/18 06:18 D-Dimer 2970 ng/mL (0-400) H* 02/02/18 06:18 Sodium 141 mmol/L (136-145) 02/04/18 05:18 Corrected Sodium 142 mmol/L (136-145) 02/04/18 05:18 Potassium 3.5 mmol/L (3.5-5.1) 02/04/18 05:18 Chloride 102 mmol/L (98-107) 02/04/18 05:18 Carbon Dioxide 35.1 mmol/L (21-32) H 02/04/18 05:18 BUN 34 mg/dL (7-18) H 02/04/18 05:18 Creatinine 1.36 mg/dL (0.70-1.30) H 02/04/18 05:18 Est GFR (MDRD) Af Amer > 60 (>60) 02/04/18 05:18 Est GFR (MDRD) Non-Af 54 (>60) L 02/04/18 05:18 Glucose 128 mg/dL (65-99) H 02/04/18 05:18 Lactic Acid 0.6 mmol/L (0.4-2.0) 02/02/18 15:52 Calcium 8.7 mg/dL (8.5-10.1) 02/04/18 05:18 Corrected Calcium 10.3 mg/dL (8.5-10.1) H 02/04/18 05:18 Magnesium 1.8 mg/dL (1.7-2.9) 02/04/18 05:18 Total Bilirubin 0.50 mg/dL (0.2-1.0) 02/04/18 05:18 AST 24 Units/L (15-37) 02/04/18 05:18 ALT 17 Units/L (12-78) 02/04/18 05:18 Alkaline Phosphatase 54 Units/L (46-116) 02/04/18 05:18 Creatine Kinase 152 Units/L (39-308) 02/02/18 18:52 CK-MB (CK-2) 2.2 ng/mL (0-4.0) 02/02/18 18:52 CK/CKMB % Calc 1.5 % (<4) 02/02/18 18:52 Troponin I < 0.02 ng/mL (0-1.5) 02/02/18 18:52 Total Protein 6.8 g/dL (6.4-8.2) 02/04/18 05:18 Albumin 2.0 g/dL (3.4-5.0) L 02/04/18 05:18 Globulin 4.8 g/dL (2.5-4.5) H 02/04/18 05:18 Albumin/Globulin Ratio 0.4 Ratio (1.1-2.1) L 02/04/18 05:18 Triglycerides 53 mg/dL (0-150) 02/03/18 04:43 Cholesterol 117 mg/dL (0-200) 02/03/18 04:43 LDL Cholesterol, Calc 47 mg/dL (0-100) 02/03/18 04:43 HDL Cholesterol 59 mg/dL (40-60) 02/03/18 04:43 Cholesterol/HDL Ratio 2.0 (0.0-5.0) 02/03/18 04:43 Amylase 36 Units/L (25-115) 02/04/18 05:18 Lipase 132 Units/L (73-393) 02/04/18 05:18 Specimen Type Catherized urine 02/02/18 11:20 Urine Color Yellow (YELLOW) 02/02/18 11:20 Urine Appearance Clear (CLEAR) 02/02/18 11:20 Urine pH 6.5 (5.0 - 8.0) 02/02/18 11:20 Ur Specific [place] 1.015 (1.000-1.030) 02/02/18 11:20 Urine Protein 2+ (NEGATIVE) 02/02/18 11:20 Urine Glucose (UA) Negative (NEGATIVE) 02/02/18 11:20 Urine Ketones Negative (NEGATIVE) 02/02/18 11:20 Urine Occult Blood 1+ (NEGATIVE) 02/02/18 11:20 Urine Nitrite Negative (NEGATIVE) 02/02/18 11:20 Urine Bilirubin Negative (NEGATIVE) 02/02/18 11:20 Urine Urobilinogen Normal (NORMAL) 02/02/18 11:20 Ur Leukocyte Esterase Negative (NEGATIVE) 02/02/18 11:20 Urine RBC 0-2 /HPF (NONE SEEN) 02/02/18 11:20 Urine WBC 0-2 /HPF (NONE SEEN) 02/02/18 11:20 Ur Squamous Epith Cells Rare /HPF (NEGATIVE) 02/02/18 11:20 Urine Bacteria Negative /HPF (NEGATIVE) 02/02/18 11:20 Granular Casts Rare /LPF (NEGATIVE) 02/02/18 11:20 Ur Culture Indicated? No/not indicated 02/02/18 11:20 Plan (1) Cholecystitis, acute with cholelithiasis: Status: Acute Plan: WILL CONTINUE CURRENT MANAGEMENT PENDING TRANSFER TO [facility]. (2) Cholecystitis with cholelithiasis: Status: Acute Plan: INDICATED ABOVE. CHEST PAIN, CA RULED OUT. AND PNEUMONIA WAS NOT CONFIRM ON CT EXAM.
[2018-02-04] MEDS: KLONOPIN TAB 0.5 MG PO PRN (21:15)
[2018-02-05] MEDS: Atrovent NEB TX 0.02% NEB SCH ×2 (00:51→06:48)
[2018-02-05] MEDS: XOPENEX 1.25 MG/3 ML NEBULE NEB SCH ×2 (00:51→06:48)
[2018-02-05] MEDS ORDERED: NS 100 ML IV + SPIKE MINIBAG* 100 ML IV ONE ×3 (04:55→20:03)
[2018-02-05] MEDS: ZOSYN VIAL 3.375 GRAMS IV SCH ×3 (05:03→21:16)
[2018-02-05] MEDS: NS 1000 ML 1,000 ML IV SCH ×2 (05:03→21:17)
[2018-02-05 05:59] LABS: ALANINE AMINOTRANSFERASE 18 Units/L (12-78); ALBUMIN 1.7 g/dL (3.4-5.0); ALKALINE PHOSPHATASE 60 Units/L (46-116); ASPARTATE AMINO TRANSFERASE 27 Units/L (15-37); BLOOD UREA NITROGEN 46 mg/dL (7-18); CALCIUM 7.6 mg/dL (8.5-10.1); CARBON DIOXIDE 26.7 mmol/L (21-32); CHLORIDE 108 mmol/L (98-107); COR CA(FOR HYPOALB) 9.4 mg/dL (8.5-10.1); CREATININE 1.58 mg/dL (0.70-1.30); SODIUM 143 mmol/L (136-145); TOTAL PROTEIN 6.2 g/dL (6.4-8.2); eGFR NON BLACK RACES 45 (>60)
[2018-02-05 06:12] LABS: BASOPHILS % (AUTO) 0.2 % (0.2-1.0); EOSINOPHILS # (AUTO) 0.1 x10^3/uL (0.0-0.2); EOSINOPHILS % (AUTO) 0.4 % (0.9-2.9); HEMATOCRIT 31.8 % (42.0-54.0); HEMOGLOBIN 10.1 g/dL (13.5-18.0); LYMPHOCYTES % (AUTO) 4.7 % (21.0-51.0); MEAN CORPUSCULAR HEMOGLOBIN 27.8 pg (27.0-34.0); MEAN CORPUSCULAR HGB CONC 31.8 g/dL (33.0-35.0); MEAN CORPUSCULAR VOLUME 87.6 fL (80.0-100.0); MEAN PLATELET VOLUME 8.3 fL (7.4-11.0); MONOCYTES # (AUTO) 1.2 x10^3/uL (0.3-0.8); MONOCYTES % (AUTO) 5.8 % (0.0-13.0); NEUTROPHILS # (AUTO) 18.5 x10^3/uL (2.2-4.8); NEUTROPHILS % (AUTO) 88.9 % (42.0-75.0); PLATELET COUNT 255 X10^3/uL (150.0-450.0); RED BLOOD COUNT 3.63 X10^6/uL (4.7-6.0); RED CELL DISTRIBUTION WIDTH 16.1 % (11.6-16.5); WHITE BLOOD COUNT 20.8 X10^3/uL (3.6-10.0)
--- NOTE | 2018-02-05 06:59 | RAD ---
HISTORY: Chest pain Study: Chest AP portable Comparison: 02/02/2018 Findings: The heart is within normal limits in size. The olivia are normal. No congestive heart failure is noted. The lungs are mildly hyperinflated but free of acute alveolar infiltrates. Mild bibasilar interstitial lung changes are present right greater than left, stable. The bony thorax is unremarkable. The patient is status post median sternotomy. There is a right-sided central line with its tip in the superior vena cava. IMPRESSION: No acute infiltrates Mild hyperinflation Bibasilar interstitial lung changes right slightly greater than left, stable Reported By:
[2018-02-05] MEDS: COZAAR PO SCH (09:51)
[2018-02-05] MEDS: NYSTATIN POWDER TOP SCH ×2 (09:52→21:17)
[2018-02-05] MEDS: LOPRESSOR TAB 50 MG PO SCH ×2 (09:52→21:16)
[2018-02-05] MEDS: KLONOPIN TAB 0.5 MG PO PRN (21:18)
[2018-02-06] MEDS: XOPENEX 1.25 MG/3 ML NEBULE NEB SCH ×2 (01:08→05:42)
[2018-02-06] MEDS: Atrovent NEB TX 0.02% NEB SCH ×2 (01:08→05:42)
[2018-02-06] MEDS ORDERED: NS 100 ML IV + SPIKE MINIBAG* 100 ML IV ONE (04:20)
[2018-02-06] MEDS: ZOSYN VIAL 3.375 GRAMS IV SCH (05:26)
[2018-02-06] MEDS: NS 1000 ML 1,000 ML IV SCH (05:26)
[2018-02-06 06:53] LABS: BASOPHILS % (AUTO) 0.1 % (0.2-1.0); EOSINOPHILS # (AUTO) 0.2 x10^3/uL (0.0-0.2); EOSINOPHILS % (AUTO) 0.7 % (0.9-2.9); HEMATOCRIT 34.3 % (42.0-54.0); HEMOGLOBIN 10.9 g/dL (13.5-18.0); LYMPHOCYTES # (AUTO) 1.4 X10^3/uL (1.3-2.9); LYMPHOCYTES % (AUTO) 5.3 % (21.0-51.0); MEAN CORPUSCULAR HEMOGLOBIN 27.8 pg (27.0-34.0); MEAN CORPUSCULAR HGB CONC 31.7 g/dL (33.0-35.0); MEAN CORPUSCULAR VOLUME 87.5 fL (80.0-100.0); MEAN PLATELET VOLUME 8.3 fL (7.4-11.0); MONOCYTES # (AUTO) 1.3 x10^3/uL (0.3-0.8); MONOCYTES % (AUTO) 5.1 % (0.0-13.0); NEUTROPHILS # (AUTO) 23.2 x10^3/uL (2.2-4.8); NEUTROPHILS % (AUTO) 88.8 % (42.0-75.0); PLATELET COUNT 322 X10^3/uL (150.0-450.0); RED BLOOD COUNT 3.92 X10^6/uL (4.7-6.0); RED CELL DISTRIBUTION WIDTH 16.1 % (11.6-16.5); WHITE BLOOD COUNT 26.1 X10^3/uL (3.6-10.0)
[2018-02-06 07:02] LABS: ALANINE AMINOTRANSFERASE 23 Units/L (12-78); ALBUMIN 1.8 g/dL (3.4-5.0); ALKALINE PHOSPHATASE 88 Units/L (46-116); ASPARTATE AMINO TRANSFERASE 42 Units/L (15-37); BLOOD UREA NITROGEN 29 mg/dL (7-18); CALCIUM 7.8 mg/dL (8.5-10.1); CARBON DIOXIDE 26.6 mmol/L (21-32); CHLORIDE 110 mmol/L (98-107); COR CA(FOR HYPOALB) 9.6 mg/dL (8.5-10.1); CREATININE 1.08 mg/dL (0.70-1.30); SODIUM 146 mmol/L (136-145); TOTAL PROTEIN 6.8 g/dL (6.4-8.2); eGFR NON BLACK RACES > 60 (>60)
[2018-02-06 07:42] LABS: BAND NEUTROPHILS % 6 % (0-10); PLATELET MORPHOLOGY COMMENT NORMAL (NORMAL)
--- NOTE | 2018-02-06 08:09 | RAD ---
HISTORY: Chest pain Study: Chest AP portable Comparison: 02/05/2018 Findings: The patient is status post median sternotomy. There is a right-sided central line with its tip in the expected position of the superior vena cava. The heart is within normal limits in size. The ol[place] are normal. The lungs are well inflated. Right basilar interstitial lung changes are stable. The left lung base is now clear as are the upper lobes bilaterally. The bony thorax is unremarkable. IMPRESSION: No acute alveolar infiltrates No change right basilar interstitial lung changes Left lung base now clear Reported By:
[2018-02-06] MEDS: COZAAR PO SCH (08:36)
[2018-02-06] MEDS: NYSTATIN POWDER TOP SCH (08:37)
[2018-02-06] MEDS: LOPRESSOR TAB 50 MG PO SCH (08:37)
[2018-02-06] MEDS ORDERED: LEVAQUIN PREMIX IV 750 MG 750 MG/150 ML BAG IV SCH (09:00)
[2018-02-06] MEDS ORDERED: XOPENEX 1.25 MG/3 ML NEBULE NEB SCH (12:00)
[2018-02-06] MEDS ORDERED: Atrovent NEB TX 0.02% NEB SCH (12:00)
[2018-02-06] MEDS ORDERED: NS 1000 ML 1,000 ML IV SCH (12:00)
[2018-02-06] MEDS ORDERED: ZOFRAN INJ 4 MG VIAL IVP PRN (13:40)
[2018-02-06] MEDS ORDERED: PROVENTIL NEB TX 0.083% 2.5MG/ 3ML NEB PRN (13:40)
[2018-02-06] MEDS ORDERED: K-RIDER 10 MEQ/NS 100 ML 10 MEQ/100 ML BAG IV PRN (13:41)
[2018-02-06] MEDS ORDERED: KLONOPIN TAB 0.5 MG PO PRN (13:41)
[2018-02-06] MEDS ORDERED: PHENERGAN INJ 25 MG IM PRN (13:41)
[2018-02-06] MEDS ORDERED: KLOR-CON PO PRN (13:41)
[2018-02-06] MEDS ORDERED: MICRO K EXTEN CAP 10 MEQ PO PRN (13:41)
[2018-02-06] MEDS ORDERED: NORMODYNE INJ 20 MG VIAL IV PRN (13:41)
[2018-02-06] MEDS ORDERED: POTASSIUM CHL 60 MEQ/NS 0.45% 500 ML IV PRN (13:42)
[2018-02-06] MEDS ORDERED: POTASSIUM CHLORIDE LIQ 20 MEQ UDC PO PRN (13:42)
[2018-02-06] MEDS ORDERED: POTASSIUM CHL 40 MEQ/NS 0.45% 500 ML IV PRN (13:42)
[2018-02-06] MEDS ORDERED: ZOSYN VIAL 3.375 GRAMS IV SCH (14:00)
[2018-02-06 14:02] VITALS: BP 160/72
--- NOTE | 2018-02-06 18:24 | DR.H&P ---
H&P - History & Physical for Day of: H&P Date: 02/02/18 - Chief Complaint Chief Complaint: CHEST PAIN, NAUSEA, VOMITING, ABDOMINAL PAIN - History of Present Illness History of Present Illness: IS A 77 YEAR OLD PATIENT OF [place] WHO PRESENTED TO THE EMERGENCY ROOM WITH COMPLAINTS OF CHEST PAIN, NAUSEA, VOMITING, AND RUQ ABDOMINAL PAIN. HE DESCRIBED CHEST PAIN INDIGESTION LIKE AND SUBSTERNAL. PATIENT REPORTS THAT HE TOOK TWO TUMS WITHOUOT RELIEF. SYMPTOMS REPORTEDLY STARTED ONE DAY PRIOR TO ARRIVAL. ON ARRIVAL, VITALS WERE 97.6-53-18-94%-136/62. LABS WERE OBTAINED. ABNORMAL LAB VALUED INCLUDEF THE FOLLOWING: WBC 15.5, D-DIMER 2970, BUN 30, CREATININE 1.34, GLUCOSE 111, TOTAL PROTEIN 9.0, GLOBULIN 5.4. CARDIAC ENZYMES WITHIN NORMAL LIMITS. EKG REVEALED: SINUS RHYTHM WITH HR 53. A CHEST XRAY WAS OBTAINED TODAY AND REVEALED: COPD with small foci of atelectasis or infiltrate in the lung bases. Postsurgical changes as noted. AN ABDOMEN CT WAS OBTAINTED AND REVEALED: Distended gallbladder with surrounding inflammatory stranding and gallbladder wall thickening suggestive of acute cholecystitis. There is reactive inflammation of the hepatic flexure of the colon related to cholecystitis. Aortic aneurysm as described with calcified intimal flap that may represent focal area of dissection. Further evaluation limited by lack of IV contrast. Right nephrolithiasis. Right lung base bronchiolar thickening and tree-in-bud opacities and background emphysematous changes that may represent bronchiolitis. A GALLBLADDER US WAS OBTAINED AND REVEALED: Cholelithiasis with gallbladder sludge and thickened gallbladder wall suggesting chronic cholecystitis. Correlate with serology and consider outpatient HIDA scan to assess gallbladder function. Consider surgical consultation. Simple right renal cyst. Atrophic liver as imaged with normal appearance of the parenchyma. Correlate with serology. WAS CONSULTED FOR CENTRAL LINE PLACEMENT. PATIENT WAS ADMITTED FOR FURTHER TREATMENT AND EVALUATION. HE WAS STARTED ON ROCEPHIN AND LEVAQUIN WELL RESPIRATORY TREATMENTS, AN PEPCID. SERIAL CARDIAC ENZYMES AND EKGS WELL ADDITIONAL LABS WERE TO BE FOLLOWED UP WITH. - Past Medical History Past Medical History: Hypertension, COPD, Gout, CHF - Past Surgical History Surgical History: CABG/Valve Surgery, Ortho Surgery, Tonsillectomy - Family History Family Medical History: Diabetes Mellitus, [place] - Social History Does patient currently use any type of tobacco product: No Have you used tobacco products in the last 12 months: No Type of Tobacco Use: Cigarettes How many years tobacco product used: 55 Does any household member use tobacco: No Alcohol Use: None Drug Use: None - Medications Home Medications: No Known Drug Allergies Allergy (Verified 12/14/17 14:27) - Review of Systems Constitutional: Weakness Eyes: No Symptoms Reported ENT: No Symptoms Reported Respiratory: Shortness of Breath Cardiovascular: Chest Pain Gastrointestinal: See HPI, Nausea, Vomiting, Abdominal Pain Genitourinary: No Symptoms Reported Musculoskeletal: No Symptoms Reported Skin: No Symptoms Reported Neurological: Weakness - Physical Exam Vital Signs: Temperature 99 F Pulse Rate [Left Brachial] 78 Pulse Rate 80 Respiratory Rate 20 Blood Pressure [Right Arm] 182/76 Blood Pressure [Left Arm] 195/86 Blood Pressure 160/72 O2 Sat by Pulse Oximetry 100 Oriented: Normal, Time, Person, Place Eyes: Normal Ear: Normal Nose: Normal Throat: Normal Respiratory: Diminished Throughout Cardiovascular: Normal. negative: S3, S4, Murmur : Normal Auscultation: Bowel Sounds: Normal Palpation: Normal Tenderness: RUQ, Moderate. negative: Rebound, Guarding, Rigidity Skin: Normal Musculoskeletal: Normal Psychiatric: Normal Mood Description: Calm Affect: Normal Speech Pattern: Clear - Assessment/Plan (1) Chest pain Qualifiers: Chest pain type: unspecified Qualified Code(s): R07.9 - Chest pain, unspecified Status: Acute Plan: SERIAL CARDIAC ENZYMES, EKGS, SUPPLEMENTAL OXYGEN, CONTINUE TO MONITOR (2) Cholecystitis, acute with cholelithiasis Qualifiers: Cholelithiasis location: gallbladder Biliary obstruction: without biliary obstruction Qualified Code(s): K80.00 - Calculus of gallbladder with acute cholecystitis without obstruction Status: Acute Plan: IV ANTIBIOTICS, PEPCID IV, CONTINUE TO MONITOR (3) Bronchiolitis Status: Acute Plan: IV ANTIBIOTICS, RESPIRATORY TREATMENTS, SUPPLEMENTAL OXYGEN, CONTINUE TO MONITOR - Allergies Allergies/Adverse Reactions: Allergies Allergy/AdvReac Type Severity Reaction Status Date / Time No Known Drug Allergies Allergy Verified 12/14/17 14:27
[2018-02-06] MEDS ORDERED: NYSTATIN POWDER TOP SCH (21:00)
[2018-02-06] MEDS ORDERED: LOPRESSOR TAB 50 MG PO SCH (21:00)
[2018-02-07] MEDS ORDERED: COZAAR PO SCH (09:00)
[2018-02-08] MEDS ORDERED: LEVAQUIN PREMIX IV 750 MG 750 MG/150 ML BAG IV SCH (09:00)
--- NOTE | 2018-02-23 13:05 | PCM.PROG ---
Progress Note - Progress Note for Day of Date of Exam: 02/05/18 - Subjective Subjective: WAS ADMITTED FOR CHEST PAIN, COPD EXACERBATION, AND LOWER LOBE PNEUMONIA. HE WAS FOUND TO HAVE GALLBLADDER THICKENING AND INFLAMMATORY STRANDING, SUGGESTING ACUTE CHOLECYSTITIS. DUE TO AORTIC ANEURISM AND CARDIAC HISTORY, HE REQUIRES CARDIAC CLEARANCE PRIOR TO SURGICAL INTERVENTION. TODAY, HE IS ALERT AND ORIENTED, LYING IN BED ON MORNING ROUNDS. HE IS NOTED WITH COMPLAINTS OF COUGH, SHORTNESS OF BREATH, WEAKNESS, AND DIFFUSED ABDOMINAL PAIN. HE HAS BEEN ACCEPTED AT [facility]NOTE 3] IN [place]. THEY ARE AWAITING A BED. HIS VITALS THIS MORNING ARE 98.0-49-66-16-125/58. LABS WERE OBTAINED. ABNORMAL LAB VALUES INCLUDE THE FOLLOWING: WBC 20.8, RBC 3.63, HGB 10.1, HCT 31. 8, CHLORIDE 108, BUN 46, CREATININE 1.58, CALCIUM 7.6, TOTAL PROTEIN 6.2, ALBUMIN 1.7. CHEST XRAY OBTAINED AND REVEALED: No acute infiltrates. Mild hyperinflation. Bibasilar interstitial lung changes right slightly greater than left, stable. WE WILL CONTINUE WITH IV ANTIBIOTICS, RESPIRATORY TREATMENTS, SUPPLEMENTAL OXYGEN, AND CURRENT PLAN OF CARE TODAY. OTHERWISE, WE WILL FOLLOW UP WITH AM LABS AND CONTINUE TO MONITOR. - Past Medical Family Social History Past Med/Fam/Surg Hx: No changes since H&P Allergies: Allergies No Known Drug Allergies Allergy (Verified 12/14/17 14:27) - Review of Systems ROS: Changes notes (describe) - Vital Signs and I&O's Vital Signs: Temperature 99 F Pulse Rate [Left Brachial] 78 Pulse Rate 80 Respiratory Rate 20 Blood Pressure [Right Arm] 182/76 Blood Pressure [Left Arm] 195/86 Blood Pressure 160/72 O2 Sat by Pulse Oximetry 100 - Physical Exam Oriented: Normal, Time, Person, Place Eyes: Normal Ear: Normal Nose: Normal Throat: Normal Respiratory: Wheezes, Rales (LOWER LUNGS.), Rhonchi Cardiovascular: Normal. negative: S3, S4, Murmur : Normal Auscultation: Bowel Sounds: Normal Palpation: Normal Tenderness: RUQ, Moderate. negative: Rebound, Guarding, Rigidity Skin: Normal Musculoskeletal: Normal Psychiatric: Normal Mood Description: Calm Affect: Normal Speech Pattern: Clear - Laboratory and Diagnostics Result Diagrams: 02/06/18 05:36 02/06/18 05:36 Labs: Laboratory WBC 26.1 X10^3/uL (3.6-10.0) H 02/06/18 05:36 RBC 3.92 X10^6/uL (4.7-6.0) L 02/06/18 05:36 Hgb 10.9 g/dL (13.5-18.0) L 02/06/18 05:36 Hct 34.3 % (42.0-54.0) L 02/06/18 05:36 MCV 87.5 fL (80.0-100.0) 02/06/18 05:36 MCH 27.8 pg (27.0-34.0) 02/06/18 05:36 MCHC 31.7 g/dL (33.0-35.0) L 02/06/18 05:36 RDW 16.1 % (11.6-16.5) 02/06/18 05:36 Plt Count 322 X10^3/uL (150.0-450.0) 02/06/18 05:36 Plt Count Comment Adequate (ADEQUATE) 02/06/18 05:36 MPV 8.3 fL (7.4-11.0) 02/06/18 05:36 Neut % (Auto) 88.8 % (42.0-75.0) H 02/06/18 05:36 Lymph % (Auto) 5.3 % (21.0-51.0) L 02/06/18 05:36 [place] % (Auto) 5.1 % (0.0-13.0) 02/06/18 05:36 Eos % (Auto) 0.7 % (0.9-2.9) L 02/06/18 05:36 Baso % (Auto) 0.1 % (0.2-1.0) L 02/06/18 05:36 Neut # (Auto) 23.2 x10^3/uL (2.2-4.8) H 02/06/18 05:36 Lymph # (Auto) 1.4 X10^3/uL (1.3-2.9) 02/06/18 05:36 [place] # (Auto) 1.3 x10^3/uL (0.3-0.8) H 02/06/18 05:36 Eos # (Auto) 0.2 x10^3/uL (0.0-0.2) 02/06/18 05:36 Baso # (Auto) 0.0 X10^3/uL (0.0-0.1) 02/06/18 05:36 Absolute Nucleated RBC 0.0 /100WBC 02/06/18 05:36 Total Counted 100 02/06/18 05:36 Neutrophils % (Manual) 83 % (39-76) H 02/06/18 05:36 Band Neutrophils % 6 % (0-10) 02/06/18 05:36 Lymphocytes % (Manual) 7 % (13-43) L 02/06/18 05:36 Monocytes % (Manual) 4 % (4-9) 02/06/18 05:36 Plt Morphology Comment Normal (NORMAL) 02/06/18 05:36 RBC Morphology Normal (NORMAL) 02/06/18 05:36 Anisocytosis Slight A 02/02/18 18:52 INR Target Range - 02/02/18 06:18 INR 0.95 (0.8-1.3) 02/02/18 06:18 APTT 26.2 SECONDS (22.9-36.5) 02/02/18 06:18 PTT Comment - 02/02/18 06:18 D-Dimer 2970 ng/mL (0-400) H* 02/02/18 06:18 Sodium 146 mmol/L (136-145) H 02/06/18 05:36 Corrected Sodium TNP 02/06/18 05:36 Potassium 3.3 mmol/L (3.5-5.1) L 02/06/18 05:36 Chloride 110 mmol/L (98-107) H 02/06/18 05:36 Carbon Dioxide 26.6 mmol/L (21-32) 02/06/18 05:36 BUN 29 mg/dL (7-18) H 02/06/18 05:36 Creatinine 1.08 mg/dL (0.70-1.30) 02/06/18 05:36 Est GFR (MDRD) Af Amer > 60 (>60) 02/06/18 05:36 Est GFR (MDRD) Non-Af > 60 (>60) 02/06/18 05:36 Glucose 90 mg/dL (65-99) 02/06/18 05:36 Lactic Acid 0.6 mmol/L (0.4-2.0) 02/02/18 15:52 Calcium 7.8 mg/dL (8.5-10.1) L 02/06/18 05:36 Corrected Calcium 9.6 mg/dL (8.5-10.1) 02/06/18 05:36 Magnesium 1.8 mg/dL (1.7-2.9) 02/04/18 05:18 Total Bilirubin 0.50 mg/dL (0.2-1.0) 02/06/18 05:36 AST 42 Units/L (15-37) H 02/06/18 05:36 ALT 23 Units/L (12-78) 02/06/18 05:36 Alkaline Phosphatase 88 Units/L (46-116) 02/06/18 05:36 Creatine Kinase 152 Units/L (39-308) 02/02/18 18:52 CK-MB (CK-2) 2.2 ng/mL (0-4.0) 02/02/18 18:52 CK/CKMB % Calc 1.5 % (<4) 02/02/18 18:52 Troponin I < 0.02 ng/mL (0-1.5) 02/02/18 18:52 Total Protein 6.8 g/dL (6.4-8.2) 02/06/18 05:36 Albumin 1.8 g/dL (3.4-5.0) L 02/06/18 05:36 Globulin 5.0 g/dL (2.5-4.5) H 02/06/18 05:36 Albumin/Globulin Ratio 0.4 Ratio (1.1-2.1) L 02/06/18 05:36 Triglycerides 53 mg/dL (0-150) 02/03/18 04:43 Cholesterol 117 mg/dL (0-200) 02/03/18 04:43 LDL Cholesterol, Calc 47 mg/dL (0-100) 02/03/18 04:43 HDL Cholesterol 59 mg/dL (40-60) 02/03/18 04:43 Cholesterol/HDL Ratio 2.0 (0.0-5.0) 02/03/18 04:43 Amylase 36 Units/L (25-115) 11/11/18 05:18 Lipase 132 Units/L (73-393) 02/04/18 05:18 Specimen Type Catherized urine 02/02/18 11:20 Urine Color Yellow (YELLOW) 02/02/18 11:20 Urine Appearance Clear (CLEAR) 02/02/18 11:20 Urine pH 6.5 (5.0 - 8.0) 02/02/18 11:20 Ur Specific [place] 1.015 (1.000-1.030) 02/02/18 11:20 Urine Protein 2+ (NEGATIVE) 02/02/18 11:20 Urine Glucose (UA) Negative (NEGATIVE) 02/02/18 11:20 Urine Ketones Negative (NEGATIVE) 02/02/18 11:20 Urine Occult Blood 1+ (NEGATIVE) 02/02/18 11:20 Urine Nitrite Negative (NEGATIVE) 02/02/18 11:20 Urine Bilirubin Negative (NEGATIVE) 02/02/18 11:20 Urine Urobilinogen Normal (NORMAL) 02/02/18 11:20 Ur Leukocyte Esterase Negative (NEGATIVE) 02/02/18 11:20 Urine RBC 0-2 /HPF (NONE SEEN) 02/02/18 11:20 Urine WBC 0-2 /HPF (NONE SEEN) 02/02/18 11:20 Ur Squamous Epith Cells Rare /HPF (NEGATIVE) 02/02/18 11:20 Urine Bacteria Negative /HPF (NEGATIVE) 02/02/18 11:20 Granular Casts Rare /LPF (NEGATIVE) 02/02/18 11:20 Ur Culture Indicated? No/not indicated 02/02/18 11:20 - Plan (1) Chest pain Status: Acute Qualifiers: Chest pain type: unspecified Qualified Code(s): R07.9 - Chest pain, unspecified Plan: SERIAL CARDIAC ENZYMES, EKGS, SUPPLEMENTAL OXYGEN, CONTINUE TO MONITOR (2) Cholecystitis, acute with cholelithiasis Status: Acute Qualifiers: Cholelithiasis location: gallbladder Biliary obstruction: without biliary obstruction Qualified Code(s): K80.00 - Calculus of gallbladder with acute cholecystitis without obstruction Plan: IV ANTIBIOTICS, PEPCID IV, CONTINUE TO MONITOR (3) Bronchiolitis Status: Acute Plan: IV ANTIBIOTICS, RESPIRATORY TREATMENTS, SUPPLEMENTAL OXYGEN, CONTINUE TO MONITOR
--- NOTE | 2018-03-12 02:02 | DR.CARTERD ---
- Discharge Summary for: Discharge Summary for Date of:: 02/06/18 - Admission Date Date of Admission: 02/02/18 - Admission Diagnoses Admission Diagnosis: (1) Chest pain (2) Cholecystitis, acute with cholelithiasis (3) Bronchiolitis - Discharge Date Discharge Date: 02/06/18 - Discharge Diagnoses Discharge Diagnosis: (1) Chest pain (2) Cholecystitis, acute with cholelithiasis (3) Bronchiolitis - Hospital Course Hospital Course: DAY ONE, IS A 77 YEAR OLD PATIENT OF HA[facility] ARANGO WHO PRESENTED TO THE EMERGENCY ROOM WITH COMPLAINTS OF CHEST PAIN, NAUSEA, VOMITING, AND RUQ ABDOMINAL PAIN. HE DESCRIBED CHEST PAIN INDIGESTION LIKE AND SUBSTERNAL. PATIENT REPORTED THAT HE TOOK TWO TUMS WITHOUOT RELIEF. SYMPTOMS REPORTEDLY STARTED ONE DAY PRIOR TO ARRIVAL. ON ARRIVAL, VITALS WERE 97.6-53-18-94%-136/62. LABS WERE OBTAINED. ABNORMAL LAB VALUED INCLUDED THE FOLLOWING: WBC 15.5, D-DIM ER 2970, BUN 30, CREATININE 1.34, GLUCOSE 111, TOTAL PROTEIN 9.0, GLOBULIN 5.4. CARDIAC ENZYMES WITHIN NORMAL LIMITS. EKG REVEALED: SINUS RHYTHM WITH HR 53. A CHEST XRAY WAS OBTAINED TODAY AND REVEALED: COPD with small foci of atelectasis or infiltrate in the lung bases. Postsurgical changes as noted. AN ABDOMEN CT WAS OBTAINTED AND REVEALED: Distended gallbladder with surrounding inflammatory stranding and gallbladder wall thickening suggestive of acute cholecystitis. There is reactive inflammation of the hepatic flexure of the colon related to cholecystitis. Aortic aneurysm as described with calcified intimal flap that may represent focal area of dissection. Further evaluation limited by lack of IV contrast. Right nephrolithiasis. Right lung base bronchiolar thickening and tree-in-bud opacities and background emphysematous changes that may represent bronchiolitis. A GALLBLADDER US WAS OBTAINED AND REVEALED: Cholelithiasis with gallbladder sludge and thickened gallbladder wall suggesting chronic cholecystitis. Correlate with serology and consider outpatient HIDA scan to assess gallbladder function. Consider surgical consultation. Simple right renal cyst. Atrophic liver as imaged with normal appearance of the parenchyma. Correlate with serology. WAS CONSULTED FOR CENTRAL LINE PLACEMENT. PATIENT WAS ADMITTED FOR FURTHER TREATMENT AND EVALUATION. HE WAS STARTED ON ROCEPHIN AND LEVAQUIN WELL RESPIRATORY TREATMENTS, AND PEPCID. SERIAL CARDIAC ENZYMES AND EKGS WELL ADDITIONAL LABS WERE TO BE FOLLOWED UP WITH. DAY TWO, PATIENT IS 77YRS OLD ADMITTED FOR CHEST PAIN RULE OUT RI AND COPD EXACERBATION. HE DEVELOPED RUQ ABDOMINAL PAIN WITH CT SHOWING CHOLECYSTITIS AND US SHOWING CHOLELITHIASIS WELL. HE WAS RUNNING A FEVER AND HAD AN ELEVATED WBC. HE WAS ON LEVAQUIN AND ROCEPHEN AND WAS GIVEN ZOSYN TODAY. HE WAS STILL WEAK AND NOT FEELING BETTER. WE CONTINUED TO MONITOR PATIENT. DAY THREE, PATIENT ADMITTED FOR CHEST PAIN RULE OUT RI AND COPD WITH PNEUMONIA. CT ABDOMEN AND PELVIS RULE OUT PNEUMONIA. PATIENT IS RUNNING LOW GRADE TEMP. AND STILL FEELING WEAK. HE WAS WAITING FOR BED AT [facility] FOR FURTHER MANAGEMENT. WE CONTINUED WITH CURRENT PLAN OF TREATMENT AND CONTINUED TO MONITOR PATIENT. DAY FOUR, WAS ADMITTED FOR CHEST PAIN, COPD EXACERBATION, AND LOWER LOBE PNEUMONIA. HE WAS FOUND TO HAVE GALLBLADDER THICKENING AND INFLAMMATORY STRANDING, SUGGESTING ACUTE CHOLECYSTITIS. DUE TO AORTIC ANEURISM AND CARDIAC HISTORY, HE REQUIRED CARDIAC CLEARANCE PRIOR TO SURGICAL INTERVENTION. TODAY, HE WAS ALERT AND ORIENTED, LYING IN BED ON MORNING ROUNDS. HE WAS NOTED WITH COMPLAINTS OF COUGH, SHORTNESS OF BREATH, WEAKNESS, AND DIFFUSED ABDOMINAL PAIN. HE HAS BEEN ACCEPTED AT [facility] IN [place]. THEY ARE AWAITING A BED. HIS VITALS THIS MORNING WERE 98.5-79-10-16-125/58. LABS WERE OBTAINED. ABNORMAL LAB VALUES INCLUDED THE FOLLOWING: WBC 20.8, RBC 3.63, HGB 10.1, HCT 31.8, CHLORIDE 108, BUN 46, CREA TININE 1.58, CALCIUM 7.6, TOTAL PROTEIN 6.2, ALBUMIN 1.7. CHEST XRAY OBTAINED AND REVEALED: No acute infiltrates. Mild hyperinflation. Bibasilar interstitial lung changes right slightly greater than left, stable. WE CONTINUED WITH IV ANTIBIOTICS, RESPIRATORY TREATMENTS, SUPPLEMENTAL OXYGEN, AND CURRENT PLAN OF CARE TODAY. WE WILL FOLLOWED UP WITH AM LABS AND CONTINUED TO MONITOR. DAY FIVE, WBC CONTINUES TO INCREASE. VITALS WERE STABLE WITH A LOW GRADE TEMP. OF 99.0 NOTED. WE CONTINUED WITH CURRENT PLAN OF TREATMENT. A BED DID COME AVAILABLE AT [facility] IN [place]. PATIENT WAS TRANSFERRED TO [facility] IN [place] FOR FURTHER EVALUATION AND TREATMENT OF SYMPTOMS. - Discharge Medications Discharge Medications: Prescriptions: Ambulatory Orders albuterol sulfate [Ventolin HFA] 2 puff INHALATION Q4H PRN 12/14/17 allopurinol 1 tab PO DAILY 12/14/17 [id number] [Trelegy Ellipta] 1 puff INHALATION DAILY 12/14/17 furosemide 1 tab PO DAILY 12/14/17 losartan [Cozaar] 100 mg PO QDAY #30 tab 12/21/17 metoprolol tartrate 50 mg PO BID #60 tab 12/21/17 levalbuterol HCl [Xopenex] 1.25 mg INHALATION BID 01/27/18 budesonide [Pulmicort] 2 ml INHALATION BID #60 ml 01/29/18 - Discharge Disposition Discharge Disposition: PATIENT TRANSFERRED TO A [facility] FOR FURTHER EVALUATION AND TREATMENT.
== END 2018-02-06 13:10 | disposition short-term general hospital (02) | DRG 444 ==
LOC: ER 05:30 → ICU 05:30
PROVIDERS: ADMIT Internal Medicine; ATTEND Internal Medicine
CPT/HCPCS: 36415; 71010; 71045; 74150; 76705; 80053; 80061; 81001; 82150; 82550; 82553; 83605; 83690; 83735; 84484; 85014; 85018; 85025; 85378; 85610; 85730; 93005; 93010; 94640; 96365; 96374; 96375; 99217; 99231; 99284; A4222; S0028; G0378; J0696; J1956; J2405; J2543; J2550; J3490; J7030; J7050; J7644